=== PATIENT | female | born 1975 | race Caucasian/White ===

== ENCOUNTER 2020-08-21 17:20 | Inpatient (IN) | payer OTHER ==
[2020-08-21] MEDS ORDERED: Adenosine 6 MG/2 ML VIAL ONE ×2 (17:29→17:37)
[2020-08-21] MEDS ORDERED: Magnesium 2 GM/50 ML BAG (IN WATER) ONE (17:31)
[2020-08-21] MEDS ORDERED: Digoxin 0.5 MG/2 ML AMP ONE (17:45)
[2020-08-21 17:46] LABS: #Basophils 0.1 thou/uL (0.0-0.2); #Eosinphils 0.1 thou/uL (0.0-0.7); #Lymphocytes 1.3 thou/uL (1.20-3.40); #Monocytes 0.7 thou/uL (0.11-0.59); #Neutrophils 3.3 thou/uL (1.40-6.50); %Basophils 1.1 % (0.0-1.0); %Eosinophils 1.4 % (0.0-10.0); %Lymphocytes 23.5 % (21.0-51.0); %Monocytes 12.6 % (0.0-10.0); %Neutrophils 61.4 % (42.0-75.0); Hemoglobin 13.4 g/dL (12.0-16.0); Mean Corpuscular HGB CONC 33.6 g/dL (32.0-36.0); Mean Corpuscular Hemoglobin 30.5 pg (27.0-31.0); Mean Corpuscular Volume 90.7 fL (78.0-98.0); Mean Platelet Volume 7.8 fL (7.4-10.4); Platelet Count 279 thou/uL (130-400); RBC Distribution Width 11.2 % (11.5-14.5); Red Blood Cell (RBC) Count 4.39 mill/uL (4.20-5.40); White Blood Cell (WBC) Count 5.4 thou/uL (4.8-10.8)
[2020-08-21] MEDS ORDERED: Diltiazem 125 MG/25 ML ONE (17:50)
--- NOTE | 2020-08-21 17:58 | RAD ---
Chest one view HISTORY: Chest pain. FINDINGS: Cardiac silhouette is magnified by projection. Pulmonary vasculature is unremarkable. Mediastinum is midline with a dual lead left subclavian cardiac electronic device. No lobar consolidation or evidence of pneumothorax. Defibrillator patch overlies the right chest and left abdomen. There are postoperative changes of the cervical spine. IMPRESSION : No active cardiopulmonary abnormalities are demonstrated.
[2020-08-21 18:01] LABS: ALT (SGPT) 7 U/L (8-55); AST (SGOT) 16 U/L (5-34); Albumin 4.1 g/dL (3.5-5.0); Alkaline Phosphatase 68 U/L (40-110); Anion Gap 13 mmol/L (10-20); BUN (Urea Nitrogen) 7 mg/dL (7.0-18.7); Bilirubin, Total 0.3 mg/dL (0.2-1.2); Calc. Creatinine Clearance 0 mL/min (70-130); Calcium 8.7 mg/dL (7.8-10.44); Carbon Dioxide 23 mmol/L (22-29); Chloride 104 mmol/L (98-107); Estimated GFR-MDRD 63; Globulin 2.8 g/dL (2.4-3.5); Glucose 109 mg/dL (70-105); Potassium 3.6 mmol/L (3.5-5.1); Protein, Total 6.9 g/dL (6.0-8.3); Sodium 136 mmol/L (136-145)
[2020-08-21 18:03] LABS: Acetaminophen Less than 6.0 mcg/mL (10.0-30.0); Alcohol Less than 10 mg/dL (Less than 10); Salicylate Less than 8.0 mg/dL (15.0-30.0)
[2020-08-21 18:14] LABS: Bilirubin Negative (Negative); Blood, Urine Negative (Negative); Clarity Clear (Clear); Glucose, Urine (Dipstick) Normal (Negative); Ketone, Urine Negative (Negative); Leukocyte Negative Leu/uL (Negative); Nitrite Negative (Negative); Protein, Urine (Dipstick) Negative (Neg-Trace); Specific Gravity, Urine 1.006 (1.002-1.036); Urobilinogen Normal mg/dL (Less than 2); pH, Urine 5.5 (5.0-9.0)
[2020-08-21 18:28] LABS: Amphetamine Not Detected (NotDetected); Barbiturates Screen Not Detected (NotDetected); Benzodiazepine Screen Not Detected (NotDetected); Cocaine Metabolite Screen Not Detected (NotDetected); Medtox Control Line Valid? VALID (VALID); Medtox Reader # READER 4; Methadone Not Detected (NotDetected); Methamphetamine Not Detected (NotDetected); Opiate Screen Not Detected (NotDetected); Oxycodone Screen Not Detected (NotDetected); Phencyclidine (PCP) Not Detected (NotDetected); THC/Cannabinoid Screen Detected (NotDetected); Tricyclic Screen Not Detected (NotDetected)
[2020-08-21] MEDS ORDERED: Amiodarone HCl 150 MG in Dextrose 5% in Water 100 ML IVPB SCH (18:45)
[2020-08-21] MEDS ORDERED: Amiodarone HCl 450 MG in Dextrose 5% in Water 250 ML IVPB SCH (18:45)
[2020-08-21] MEDS ORDERED: levETIRAcetam in NS 100 ML ONE (20:07)
[2020-08-21 21:01] LABS: Troponin I Less than 0.010 ng/mL (< 0.028)
[2020-08-21] MEDS ORDERED: Electrolyte Replacement Protoc 1 EACH EACH IVPB PRN (21:03)
--- NOTE | 2020-08-21 21:09 | CT ---
CT head noncontrast HISTORY: Altered mental status. FINDINGS: There is no evidence of acute intracranial hemorrhage or infarct. The ventricles appear nor mal in size, shape and position. There is no mass effect or shift of midline structures. Visualized paranasal sinuses remain well aerated. IMPRESSION : No abnormalities are demonstrated.
--- NOTE | 2020-08-21 21:12 | PDOC.HHP ---
Hospitalist HPI - History of Present Illness Altered mental status History of Present Illness: 44-year-old woman with a history of chronic systolic heart failure, status post AICD, sick sinus syndrome, seizure disorder and COPD was brought to the emergency department due to intermittent altered mental status. Patient is reported to have been going in and out of consciousness family were concerned for seizures. Her heart rate was found to be as high as in the 200s. Patient noted to be in SVT on arrival with ventricular rate as high as 210. Patient was given multiple doses of adenosine, diltiazem and digoxin without any effect. Stone Grader-Dr. Chung was contacted who recommended amiodarone. Patient was given a bolus of amiodarone and started on amiodarone drip. She then converted to sinus rhythm with heart rate in the low 100s. She was somnolent because he was given a dose of IV Ativan and could not provide any history. Chest x-ray was unremarkable. Her vitals are stable. Patient is admitted for further management. Hospitalist ROS - Review of Systems ROS unobtainable: due to mental status - Medication Medications: I am not able to collect and validate home medications given her somnolence. Current Medications Famotidine (Famotidine/Pf 20 Mg/2ml Vial) 20 mg SLOW IVP Q12HR DAYSI Sodium Chloride (Normal Saline 0.9%) 1,000 mls @ 50 mls/hr IV .Q20H DAYSI Last Admin: 08/22/20 00:41 Dose: Not Given Documented by: Influenza Virus Vaccine Quadrival (Flu Vacc [id number](6mos Up)/Pf 60 Mcg/0.5 Ml Syringe) 60 mcg IM .ONCE ONE Stop: 08/22/20 21:01 Miscellaneous Medication (Electrolyte Replacement Protoc 1 Each Each) 1 each IVPB PRN PRN PRN Reason: ELECTROLYTES Pneumococcal Polyvalent Vaccine (Pneumococcal 23 "Pneumovax" 0.5 Ml Vial) 0.5 ml IM .ONCE ONE Stop: 08/22/20 21:01 Hospitalist History - Past Medical History Other Medical History: Chronic systolic heart failure, sick sinus syndrome, COPD, osteoporosis, hypercholesterolemia, history of CVA, ALS, lupus. Manic depression. - Past Surgical History Other Surgical History: Cervical spine surgery, appendectomy, cholecystectomy, section. - Family History Other Family History: Unable to obtain due to somnolence. - Social History Alcohol: reports: None Drugs: reports: marijuana - Exam General Appearance: NAD, awake alert General - other findings: Cachectic. Eye: PERRL, anicteric sclera ENT: normocephalic atraumatic, moist mucosa Neck: supple, no JVD Heart: RRR, no murmur, no gallops Heart - other findings: tachycardia Respiratory: CTAB, no wheezes, no rales, no ronchi Gastrointestinal: soft, non-tender, non-distended, normal bowel sounds Extremities: no cyanosis, no edema Skin: normal turgor, no rashes Neurological: cranial nerve grossly intact, no weakness, no focal deficits Musculoskeletal: normal tone, normal strength Psychiatric: somnolent Hospitalist Results - Labs Result Diagrams: 08/21/20 17:32 08/21/20 17:32 Lab results: WBC 5.4 thou/uL (4.8-10.8) 08/21/20 17:32 Hgb 13.4 g/dL (12.0-16.0) 08/21/20 17:32 Hct 39.8 % (36.0-47.0) 08/21/20 17:32 MCV 90.7 fL (78.0-98.0) 08/21/20 17:32 Plt Count 279 thou/uL (130-400) 08/21/20 17:32 Neutrophils % 61.4 % (42.0-75.0) 08/21/20 17:32 Sodium 136 mmol/L (136-145) 08/21/20 17:32 Potassium 3.6 mmol/L (3.5-5.1) 08/21/20 17:32 Chloride 104 mmol/L (98-107) 08/21/20 17:32 Carbon Dioxide 23 mmol/L (22-29) 08/21/20 17:32 BUN 7 mg/dL (7.0-18.7) 08/21/20 17:32 Creatinine 0.96 mg/dL (0.6-1.1) 08/21/20 17:32 Glucose 109 mg/dL (70-105) H 08/21/20 17:32 Lactic Acid 1.3 mmol/L (0.5-2.2) 08/21/20 17:32 Calcium 8.7 mg/dL (7.8-10.44) 08/21/20 17:32 Total Bilirubin 0.3 mg/dL (0.2-1.2) 08/21/20 17:32 AST 16 U/L (5-34) 08/21/20 17:32 ALT 7 U/L (8-55) L 08/21/20 17:32 Alkaline Phosphatase 68 U/L (40-110) 08/21/20 17:32 Troponin I Less than 0.010 ng/mL (< 0.028) 08/21/20 20:30 B-Natriuretic Peptide 14.4 pg/mL (0-100) 08/21/20 17:32 Serum Total Protein 6.9 g/dL (6.0-8.3) 08/21/20 17:32 Albumin 4.1 g/dL (3.5-5.0) 08/21/20 17:32 Urine Ketones Negative mg/dL (Negative) 08/21/20 18:02 Urine Blood Negative (Negative) 08/21/20 18:02 Urine Nitrite Negative (Negative) 08/21/20 18:02 Ur Leukocyte Esterase Negative Chicho/uL (Negative) 08/21/20 18:02 Hospitalist H&P A/P - Problem (1) SVT (supraventricular tachycardia) Code(s): I47.1 - SUPRAVENTRICULAR TACHYCARDIA Status: Acute (2) Chronic systolic heart failure Code(s): I50.22 - CHRONIC SYSTOLIC (CONGESTIVE) HEART FAILURE Status: Acute (3) Sick sinus syndrome Code(s): I49.5 - SICK SINUS SYNDROME Status: Acute (4) Automatic implantable cardioverter-defibrillator in situ Code(s): Z95.810 - PRESENCE OF AUTOMATIC (IMPLANTABLE) CARDIAC DEFIBRILLATOR Status: Acute (5) Seizure disorder Code(s): G40.909 - EPILEPSY, UNSP, NOT INTRACTABLE, WITHOUT STATUS EPILEPTICUS Status: Acute - Plan Plan: Admit to telemetry Continue amiodarone drip per Dr. Chung Obtain echocardiogram Monitor and optimize electrolytes. Slow IV hydration with caution to avoid volume overload. Consult to staffing mgr. Continue seizure medications.
[2020-08-21 23:59] LABS: Troponin I Less than 0.010 ng/mL (< 0.028)
[2020-08-22] MEDS: Sodium Chloride 0.9% 1,000 ML IV SCH ×2 (00:41→20:30)
[2020-08-22] MEDS ORDERED: Amiodarone 450 MG, Admixture Fee 1 EACH in Dextrose 5% in Water 250 ML IVPB SCH (03:45)
[2020-08-22 04:11] LABS: Phosphorus 2.9 mg/dL (2.3-4.7)
[2020-08-22 04:55] LABS: ALT (SGPT) Less than 7 U/L (8-55); AST (SGOT) 10 U/L (5-34); Albumin 3.2 g/dL (3.5-5.0); Alkaline Phosphatase 53 U/L (40-110); Anion Gap 10 mmol/L (10-20); BUN (Urea Nitrogen) 6 mg/dL (7.0-18.7); Band 1 % (5-11); Bilirubin, Total 0.6 mg/dL (0.2-1.2); Calc. Creatinine Clearance 63 mL/min (70-130); Calcium 7.7 mg/dL (7.8-10.44); Carbon Dioxide 20 mmol/L (22-29); Chloride 112 mmol/L (98-107); Eosinophils 5 % (0-10); Estimated GFR-MDRD 79; Glucose 85 mg/dL (70-105); Hemoglobin 10.6 g/dL (12.0-16.0); Lymphocytes 18 % (21-51); MDiff Complete? YES; Magnesium 2.1 mg/dL (1.6-2.6); Mean Corpuscular HGB CONC 33.6 g/dL (32.0-36.0); Mean Corpuscular Hemoglobin 30.8 pg (27.0-31.0); Mean Corpuscular Volume 91.7 fL (78.0-98.0); Mean Platelet Volume 8.2 fL (7.4-10.4); Monocytes 10 % (0-10); Neutrophil 66 % (42-75); Platelet Count 222 thou/uL (130-400); Potassium 3.6 mmol/L (3.5-5.1); Protein, Total 5.2 g/dL (6.0-8.3); RBC Distribution Width 11.1 % (11.5-14.5); Red Blood Cell (RBC) Count 3.45 mill/uL (4.20-5.40); Sodium 138 mmol/L (136-145); White Blood Cell (WBC) Count 5.9 thou/uL (4.8-10.8)
[2020-08-22] MEDS ORDERED: Famotidine/PF 20 mg/2ml Vial SLOW IVP SCH (09:00)
--- NOTE | 2020-08-22 10:31 | CON ---
DATE OF CONSULTATION: 08/22/2020 INDICATION FOR CONSULTATION: A 44-year-old female with reported history of SVT with heart rates in the 200s. HISTORY OF PRESENT ILLNESS: This is a very unfortunate 44-year-old female, who has a history of lupus, also has a history of seizure disorder and also has ALS, has been having some episodes which she describes as being syncope at home, where just becoming nonresponsive. She underwent pacemaker insertion in the past. She has a Medtronic dual-chamber pacemaker. Apparently, yesterday at home, she became unresponsive. 911 was called. She was brought to the emergency room. According to the records, she was in SVT with a heart rate in the 200 range. There were no tracings in the chart to indicate her heart rate was tachycardia at that time. First EKG yesterday at 7 o'clock shows a sinus rhythm or sinus tachycardia with a heart rate of [address]-segment changes. She has had no further episodes since being admitted to the hospital. She was placed on IV amiodarone yesterday, remains on the drip. At this time, she denies any chest pain. She is alert and oriented. PAST MEDICAL HISTORY: Significant for pacemaker insertion due to sick sinus syndrome, history of seizure disorder, ALS, lupus. She has chronic pain syndrome. She also has posttraumatic stress disorder. She has a history of possible CVA in the past, osteoporosis, hypercholesterolemia, history of COPD. She smoked in the past, says she has not recently smoked. She has had neck surgery. She has had several episodes of fusion. SOCIAL HISTORY: She lives at home. She has some tobacco abuse. She smokes marijuana. She was positive on the drug screen for cannabis. MEDICATIONS PRIOR TO ADMISSION: Include: 1. Atorvastatin 40 mg a day. 2. Famotidine she takes 40 mg tablets twice a day. 3. Levetiracetam 500 mg, she takes 1000 mg 2 times a day. 4. Prednisone 20 mg once a day. 5. Sertraline 200 mg once a day. 6. Topiramate 200 mg twice a day. 7. Meloxicam 15 mg p.r.n. as needed. 8. Cyclobenzaprine 5 mg as needed. 9. Hydroxyzine 25 mg twice a day. 10. Verapamil 180 mg once a day. REVIEW OF SYSTEMS: A 12-point review of systems is unremarkable except what was noted in the history of present illness. She does have seizures. She has had some episodes of tachycardia with a rapid heart rate. She has chronic pain syndrome. Otherwise, she denied any GI complaints, complaints, or pulmonary complaints. No musculoskeletal complaints that were noted. PHYSICAL EXAMINATION: GENERAL: Reveals a very thin statured female. She is alert. She is oriented. VITAL SIGNS: At this time, blood pressure is 110/60, O2 saturation 100%, she is afebrile, heart rates in the 80s and shows sinus rhythm, and respiratory rate 17. HEENT: Unremarkable. CHEST: Clear to auscultation without rales, rhonchi, or wheezing. She has a well-healed surgical incision over the pacemaker site underneath the left infraclavicular area. CARDIOVASCULAR: Did not reveal any significant murmurs, heaves, thrills, bruits, or rubs. ABDOMEN: Soft and nontender. Positive bowel sounds are present. EXTREMITIES: Show no clubbing, cyanosis, or edema. Pedal pulses are present. NEUROLOGIC: She appears to be intact. She does have extremely poor dentition, most of her teeth are missing, and the rest have severe caries. SKIN: Warm and dry. DIAGNOSTIC STUDIES: EKG at this time shows a normal sinus rhythm. LABORATORY DATA: Showed sodium is 138, potassium is 3.6, BUN is 6 with a creatinine of 0.79. Cardiac enzymes are negative. TSH is 1.29. WBC of 5.9, hemoglobin 10.6. Apparently, on admission, her hemoglobin was 13.4. She may have been slightly dehydrated. Platelet count was 222,000. IMPRESSION: 1. Probable supraventricular tachycardia, which was converted back to a sinus rhythm. In the emergency room, she was given adenosine and was started on IV amiodarone. She also was given digoxin as well as some magnesium. We will interrogate the pacemaker to determine whether or not this is truly supraventricular tachycardia or flutter and then the clean in places operator has already been consulted. 2. History of sick sinus syndrome. She has undergone pacemaker insertion in the past. This was done in [place]. 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 She recently moved to this area. 3. History of lupus. This will be dealt with by the primary care service as well as ALS, will also be dealt with by the primary care service. We will be more than happy to continue to follow the patient with you, but will need to be fully evaluated from a cardiology standpoint via Electrophysiology. We will obtain the records from [place], can also obtain an echocardiogram for evaluation of left ventricular systolic function. She denies any previous history of coronary artery disease or stent placement. Job ID: [id number] MTDD
[2020-08-22 12:15] LABS: SARS-CoV-2 MS2 Positive; SARS-CoV-2 N Gene Negative; SARS-CoV-2 S Gene Negative; SARS-CoV-2 by NAA Not Detected (NotDetected); SARS-CoV-2 orf1ab Negative
--- NOTE | 2020-08-22 17:35 | PDOC.HOSPP ---
- Subjective Subjective: denies of chest pain, still lethargic but want to go home. - Objective Vital Signs & Weight: Vital Signs (12 hours) Temp Pulse Ox 08/22/20 15:13 98.7 F 08/22/20 11:03 98.5 F 08/22/20 07:27 100 08/22/20 07:08 97.8 F Weight Admit Weight 96 lb 8.999 oz Weight 96 lb Most Recent Monitor Data Heart Rate from ECG 68 NIBP 103/63 NIBP BP-Mean 76 Respiration from ECG 20 SpO2 100 I&O: 08/21/20 08/22/20 08/23/20 06:59 06:59 06:59 Intake Total 1627 Output Total 1125 1400 Balance 502 -1400 Result Diagrams: 08/22/20 03:15 08/22/20 03:15 Radiology Reviewed by me: Yes EKG Reviewed by me: Yes Hospitalist ROS - Medication Medications: Active Medications Generic Name Dose Route Start Last Admin Trade Name Freq PRN Reason Stop Dose Admin Sodium Chloride 1,000 mls @ 50 mls/hr 08/21/20 21:15 08/22/20 00:41 Normal Saline 0.9% IV Not Given .Q20H DAYSI Amiodarone HCl 450 mg/ 259 mls @ 0 mls/hr 08/22/20 03:45 08/22/20 03:57 Miscellaneous Medication 1 IVPB 259 mls each/ Dextrose/Water INF DAYSI Administration Protocol As Directed Sodium Chloride 10 ml 08/22/20 09:00 08/22/20 07:51 Flush - Normal Saline 10 Ml Syringe IVF 10 ml Q12HR DAYSI Administration - Exam General Appearance: NAD Eye: PERRL ENT: normocephalic atraumatic Neck: supple Heart: RRR Respiratory: CTAB Gastrointestinal: soft, non-tender Extremities: no cyanosis Skin: normal turgor Hosp A/P (1) SVT (supraventricular tachycardia) Code(s): I47.1 - SUPRAVENTRICULAR TACHYCARDIA Status: Acute (2) Lupus Code(s): M32.9 - SYSTEMIC LUPUS ERYTHEMATOSUS, UNSPECIFIED Status: Acute (3) ALS (amyotrophic lateral sclerosis) Code(s): G12.21 - AMYOTROPHIC LATERAL SCLEROSIS Status: Acute (4) Automatic implantable cardioverter-defibrillator in situ Code(s): Z95.810 - PRESENCE OF AUTOMATIC (IMPLANTABLE) CARDIAC DEFIBRILLATOR Status: Acute (5) Chronic systolic heart failure Code(s): I50.22 - CHRONIC SYSTOLIC (CONGESTIVE) HEART FAILURE Status: Acute (6) Seizure disorder Code(s): G40.909 - EPILEPSY, UNSP, NOT INTRACTABLE, WITHOUT STATUS EPILEPTICUS Status: Acute (7) Sick sinus syndrome Code(s): I49.5 - SICK SINUS SYNDROME Status: Acute (8) Syncope Code(s): R55 - SYNCOPE AND COLLAPSE Status: Acute - Plan Resume home medications. Appreciate input from cardiology, pending further recommendation from EP. cont supportive cares. rpt labs in AM, follow Echo
[2020-08-22] MEDS: levETIRAcetam 500 MG TAB PO SCH (20:30)
[2020-08-22] MEDS: Topiramate 100 MG TAB PO SCH (20:31)
[2020-08-22] MEDS: Famotidine 20 MG TAB PO SCH (20:31)
[2020-08-22] MEDS ORDERED: FLU VACC QS2020-21(6MOS UP)/PF 60 MCG/0.5 ML SYRINGE IM ONE (21:00)
[2020-08-23 03:56] LABS: ALT (SGPT) Less than 7 U/L (8-55); AST (SGOT) 13 U/L (5-34); Alkaline Phosphatase 56 U/L (40-110); Anion Gap 10 mmol/L (10-20); BUN (Urea Nitrogen) 6 mg/dL (7.0-18.7); Band 2 % (5-11); Bilirubin, Total 0.6 mg/dL (0.2-1.2); Calc. Creatinine Clearance 66 mL/min (70-130); Calcium 7.8 mg/dL (7.8-10.44); Carbon Dioxide 19 mmol/L (22-29); Chloride 113 mmol/L (98-107); Eosinophils 2 % (0-10); Estimated GFR-MDRD 84; Globulin 2.2 g/dL (2.4-3.5); Glucose 80 mg/dL (70-105); Hemoglobin 10.2 g/dL (12.0-16.0); Lymphocytes 21 % (21-51); MDiff Complete? YES; Magnesium 1.9 mg/dL (1.6-2.6); Mean Corpuscular Hemoglobin 30.8 pg (27.0-31.0); Mean Corpuscular Volume 90.6 fL (78.0-98.0); Mean Platelet Volume 7.9 fL (7.4-10.4); Monocytes 4 % (0-10); Neutrophil 67 % (42-75); Platelet Count 224 thou/uL (130-400); Platelet Morphology Comment Appears Adequate; Potassium 3.7 mmol/L (3.5-5.1); Protein, Total 5.2 g/dL (6.0-8.3); RBC Distribution Width 10.9 % (11.5-14.5); Reactive Lymphocytes 4 % (0-10); Red Blood Cell (RBC) Count 3.31 mill/uL (4.20-5.40); Sodium 138 mmol/L (136-145); White Blood Cell (WBC) Count 3.9 thou/uL (4.8-10.8)
[2020-08-23] MEDS ORDERED: Magnesium 2 GM/50 ML 2 GM in Premix Bag 1 BAG IVPB SCH (06:15)
[2020-08-23 07:15] VITALS: TEMP 98.2
--- NOTE | 2020-08-23 07:46 | CON ---
DATE OF CONSULTATION: 08/22/2020 HISTORY OF PRESENT ILLNESS: I am seeing Ms. Pro at our [facility] step-down ICU for Electrophysiology consultation. Her problems are; 1. Episodes of supraventricular tachycardia in excess of 200 beats per minute, requiring DCCV and bolus with with amiodarone in ER. 2. History of sick sinus syndrome, status post Medtronic Adapta dual-chamber pacemaker implant on 02/18/2009. 3. Preserved LVEF by prior ECHO 55-60% in 11/07/19. No sign valve disease, Normal atriae. 4. History of seizure disorder with recent recurrences. 5. Possible history of atrial arrhtyhmias. 6. History of ALS. 7. Marijuana use. ALLERGIES: QUETIAPINE. MEDICATIONS: At home included; 1. Verapamil ER. 2. Prednisone. 3. Sertraline. 4. Levetiracetam. 5. Famotidine. 6. Lipitor. 7. Hydroxyzine. 8. Topiramate. 9. Meloxicam. 10. Cyclobenzaprine. SUBJECTIVE: Ms. Pro is a poor historian. She has some degree of confusion. She cannot recall the exact event which brought her in, but she states she has been feeling bad and then she went down according to her. Family was concerned for seizures and then altered mental status. EMS found her with SVT per report with high heart rates up to 210 beats per minute. In ER Adenosine, diltiazem, and digoxin did not work, eventually received DCCV and IV amiodarone,which eventually converted her back to sinus rhythm. Since then, on the drip, she maintains normal rhythm. Unfortunately, strips are not available. She does have a history of a pacemaker implant from 2008 with sick sinus syndrome. She may have episodes of palpitations frequently, possibly multiple times a week. REVIEW OF SYSTEMS: Rest of 12-point review of system otherwise unremarkable. PAST HISTORY: As above. SOCIAL HISTORY: The patient denies smoking, EtOH, or drug abuse. FAMILY HISTORY: Not contributory. OBJECTIVE DATA: VITAL SIGNS: Blood pressure currently 110/76, heart rate 87, respiratory rate is 17, temperature 97.8 degrees Fahrenheit. GENERAL: Reveals alert and oriented woman, somewhat cachectic, with BMI of 16. NECK: Supple. Jugular veins not distended. CHEST: Coarse without crackles. HEART: Sounds are regular to rate and rhythm. Left precordial pacemaker site is noted. No murmur or gallop is appreciated. ABDOMEN: Benign. Bowel sounds are positive. EXTREMITIES: Lower extremities without edema, clubbing, or cyanosis. DATABASE: The EKG is reviewed, revealing initially an atrial tachycardia run with atrial cycle length about 320 milliseconds with variable AV conduction. Subsequent EKG from 08/21/2020, showed sinus rhythm, rate of 109 beats per minute. LABORATORY DATA: White cell count is 5.9, hemoglobin 10.6, platelet count is 222. Sodium 138, potassium 3.6, BUN is 6, creatinine 0.79. The tox screen is positive for cannabis. Chest x-ray shows a dual-chamber pacemaker in place, normal heart size. Pacemaker interrogation, preliminary report suggests adequate functioning dual-chamber pacemaker with frequent high heart rate episodes, Both High ventricular and atrial rate episode are documented to max duration of 3 minutes, but frequently recurring on 08/21/20 PM. Intracrdiac electrograms are not available by this older device. Her albumin is 3.2, globulin is 2.0. Troponin levels are less than 0.01. TSH is 1.2975. ASSESSMENT AND PLAN: Ms. Pro is a 44-year-old woman with a complex medical history, possible ALS and seizure disorder, who is presenting with a narrow complex tachycardia. The only strip available to me is suggesting atrial tachycardia with variable AV conduction. Pacemaker interrogation already requested, although it seems due to the older device with limited monitoring function, intracardiac electrograms are not very helpful. She seems to have responded well to amiodarone therapy. My plan at this point; 1. We will need to obtain more data in regard to this lady's history and current condition. 2D echocardiogram will be requested, hence the remote history of CHF, although x-ray seems to indicate normal cardiac size. 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 2. Due to multiple comorbidities, at this point, I would like to recommend medical suppression of her atrial arrhythmias, hence her left atrial and at this point, she is not anticoagulated for left atrial procedures. We will continue to follow with you. Thank you again for letting me participate in care of this patient. Job ID: [id number] MTDD
[2020-08-23] MEDS ORDERED: predniSONE 20 MG TAB PO SCH (08:00)
[2020-08-23] MEDS: Famotidine 20 MG TAB PO SCH (08:46)
[2020-08-23] MEDS: levETIRAcetam 500 MG TAB PO SCH (08:46)
[2020-08-23] MEDS: Topiramate 100 MG TAB PO SCH (08:46)
--- NOTE | 2020-08-23 11:20 | PDOC.EP ---
- Subjective Date: 08/23/20 Time: 11:09 Interval History: Remains stable overnight with no recurrent arrhythmia or seizures. - Review of Systems Constitutional: denies: chills, fever, malaise, sweats, weakness, other Respiratory: denies: cough, dry, hemoptysis, pleuritic pain, shortness of breath, SOB with excertion, sputum, wheezing, other Cardiology: denies: chest pain, edema, heart racing, light headedness, paroxysmal noc. dyspnea, orthopnea, palpitations, passing out, pleuritic pain, pressure, swelling, other Gastrointestinal: denies: abdominal pain, constipation, diarrhea, hematochezia, melena, nausea, vomitting, other Musculoskeletal: denies: unstable gait, falls, neck pain, shoulder pain, arm pain, hand pain, leg pain, foot pain, other Neurological: denies: headache, vision changes, other - Objective Allergies/Adverse Reactions: Allergies Allergy/AdvReac Type Severity Reaction Status Date / Time quetiapine [From Seroquel] Allergy Verified 08/22/20 02:37 Current Medications Atorvastatin Calcium (Atorvastatin Calcium 40 Mg Tab) 40 mg PO [facility] Famotidine (Famotidine 20 Mg Tab) 20 mg PO BID [facility] Last Admin: 08/23/20 08:46 Dose: 20 mg Documented by: Sodium Chloride (Normal Saline 0.9%) 1,000 mls @ 50 mls/hr IV .Q20H [facility] Last Admin: 08/22/20 20:30 Dose: 1,000 mls Documented by: Amiodarone HCl 450 mg/Miscellaneous Medication 1 each/ Dextrose/Water 259 mls @ 0 mls/hr IVPB INF DAYSI; Protocol Last Admin: 08/22/20 03:57 Dose: 259 mls Documented by: Levetiracetam (Levetiracetam 500 Mg Tab) 1,000 mg PO BID [facility] Last Admin: 08/23/20 08:46 Dose: 1,000 mg Documented by: Miscellaneous Medication (Electrolyte Replacement Protoc 1 Each Each) 1 each IVPB PRN PRN PRN Reason: ELECTROLYTES Prednisone (Prednisone 20 Mg Tab) 20 mg PO QA[facility] Last Admin: 08/23/20 08:46 Dose: 20 mg Documented by: Sertraline HCl (Sertraline Hcl 100 Mg Tab) 200 mg PO DAILY [facility] Last Admin: 08/23/20 08:46 Dose: 200 mg Documented by: Sodium Chloride (Flush - Normal Saline 10 Ml Syringe) 10 ml IVF Q12HR [facility] Last Admin: 08/23/20 08:47 Dose: 10 ml Documented by: Sodium Chloride (Flush - Normal Saline 10 Ml Syringe) 10 ml IVF PRN PRN PRN Reason: Saline Flush Topiramate (Topiramate 100 Mg Tab) 200 mg PO BID [facility] Last Admin: 08/23/20 08:46 Dose: 200 mg Documented by: Vital Signs & Weight: Vital Signs Temp 08/23/20 07:15 98.2 F 08/23/20 04:00 97.7 F 08/23/20 00:00 97.4 F L Admit Weight 96 lb 8.999 oz Weight 93 lb 14.671 oz I/O: I/O 08/22/20 08/23/20 08/24/20 06:59 06:59 06:59 Intake Total 1627 1700 Output Total 1125 4250 550 Balance 502 -2550 -550 - Physical Exam General: alert & oriented x3, appears well HEENT: normocephaly Neck: no JVD/HJR Cardiology: no murmur, regular rate Lungs: clear to auscultation, normal breath sounds, no wheezes, no rales Neurology: grossly intact Abdomen: unremarkable, soft, non-tender Extremities: warm Skin: device site stable w/o swelling Musculoskeletal: no pain - Labs Result Diagrams: 08/23/20 03:12 08/23/20 03:12 - EKG Interpretation EKG Method: Telemetry (SR) - Device Device: dual, pacemaker Device Result: Medtronic - Assessment/Plan Assessment/Plan: HISTORY OF PRESENT ILLNESS: I am seeing Ms. Pro at our [facility] step-down ICU for Electrophysiology consultation. Her problems are; 1. Episodes of supraventricular tachycardia in excess of 200 beats per minute, requiring DCCV and bolus with with amiodarone in ER. 2. History of sick sinus syndrome, status post Medtronic Adapta dual-chamber pacemaker implant on 02/18/2009. 3. Preserved LVEF by prior ECHO 55-60% in 11/07/19. No sign valve disease, No rmal atriae. 4. History of seizure disorder with recent recurrences. 5. Possible history of atrial arrhtyhmias. 6. History of ALS. 7. h/o Marijuana use. ASSESSMENT AND PLAN: Ms. Pro is a 44-year-old woman with a complex medical history, possible ALS and seizure disorder, who is presenting with a narrow complex tachycardia. The only strip available to me is suggesting atrial tachycardia with variable AV conduction. Pacemaker interrogation already requested, although it seems due to the older device with limited monitoring function, intracardiac electrograms are not very helpful. She seems to have responded well to amiodarone therapy. 08/23/20. PPm interrogation and Dr Bullock's ([facility]) notes reviewd from 06/2019. Pt had preserved LVEF then and now. History of diastolic heart failure noted. 1. Due to multiple comorbidities, at this point, I would like to recommend medical suppression of her atrial arrhythmias. for now would avoid termite treater helper amidarone therapy. Adding BB is reasonable, if tolerated by her pulmonary status. If recurrent atach/afib epsides are seen consider sotalol or flecainde. She could also be considered for left atrial ablative procedures if above fails as outpt. Hence her atrial tachycardia episodes are short, i would recommend ASA 81mg QD for thromboprophylaxis. Plan to reprogram device before DC for better monitoring options of her arrhythmiae. Happy ot see her back in clinic in 4-6 weeks. Thank you again for letting me participate in care of this patient.
[2020-08-23 12:00] VITALS: BMI 15.6
[2020-08-23] MEDS: Sodium Chloride 0.9% 1,000 ML IV SCH (15:00)
--- NOTE | 2020-08-23 17:24 | PDOC.DS.DS ---
Provider - Provider Date of Admission: 08/21/20 20:18 Date of Discharge: 08/23/20 Admitting Provider: Kendell Dennison MD Consultations: Cardiology Primary Care Physician: NO PCP PROVIDER Course - Hospital Course Hospital Course: HISTORY OF PRESENT ILLNESS AND BRIEF HOSPITAL COURSE: 44 years old female with multiple comorbidities including chronic systolic heart failure with status post AICD, sick sinus syndrome, seizure disorder, COPD, who presented to ED with complaint of altered mental status. Apparently, this was reported that she was in and out of her consciousness, family was concerned that she may have seizure. Upon arrival, her heart rate was in the 200 range. She was found in SVT. She was given multiple dose of adenosine, diltiazem, digoxin without any significant improvement. Cardiology was consulted, Dr. Chung recommends start patient on amiodarone bolus, and then maintenance dose. Rate appears to be responded well. Patient was ultimately admitted to hospitalist service for further management. Cardiology, and EP were consulted. Patient was seen by Dr. Davis, and Dr. Calixto from cardiology. Mental status back to baseline. Patient was started on low-dose beta-ginny, Lopressor 12.5 mg twice daily. Her rate has been controlled. Patient threatened to leave AMA multiple times, however, we able to addictions counselor to stay until she is discharged appropriate. At this point, patient is okay to discharge from cardiology. Patient will follow up with Dr. Davis at outpatient. PERTINENT IMAGING STUDIES: CT head: No abnormality Chest x-ray shows no acute cardiopulmonary process Echo: EF 60-65%, normal right ventricular size and function. PROCEDURE PERFORMED: NONE DISCHARGE CONDITION: STABLE DISPOSITION: HOME PHYSICAL EXAM: General Appearance: Alert, oriented, resting comfortably, no apparent distress, well developed/nourished. HEENT: Normocephalic/atraumatic, moist mucous membrane, normal ENT inspection, normal tones. PERRLA, no scleral icterus, normal conjunctiva Neck: Supple, normal inspection, no JVD Respiratory: Lungs are clear bilaterally, normal breath sounds, no accessory muscle use Cardiovascular: Regular rate, regular rhythm, no murmur, no rubs Abdomen: Soft, nontender, nondistended, normal bowel sounds, no organomegaly, no guarding no rebound Back: Normal inspection, no CVA tenderness Extremities: No clubbing, no cyanosis, no edema Psych/Mental Status: Normal affect, speech, non-pressured, AAO x 3 Neurologic: CN II-XII are intact. Skin: Warm/Dry, Normal Color, no rashes DISCHARGE TIME SPENT: >30 MINUTES - Labs Lab Results: 08/23/20 03:12 08/23/20 03:12 Abnormal Lab Results - Last 48 hrs 08/21/20 17:32: ALT 7 L 08/21/20 17:32: Salicylates Less than 8.0 L, Acetaminophen Less than 6.0 L 08/21/20 17:32: RDW 11.2 L, Monocytes % 12.6 H, Basophils % 1.1 H, Monocytes # 0.7 H 08/21/20 18:02: U Cannabinoids Screen Detected H 08/22/20 03:15: Chloride 112 H, Carbon Dioxide 20 L, BUN 6 L, Calcium 7.7 L, ALT Less than 7 L, Serum Total Protein 5.2 L, Albumin 3.2 L, Globulin 2.0 L 08/22/20 03:15: RBC 3.45 L, Hgb 10.6 L, Hct 31.6 L, RDW 11.1 L, Band Neuts % (Manual) 1 L, Lymphocytes % (Manual) 18 L 08/23/20 03:12: WBC 3.9 L, RBC 3.31 L, Hgb 10.2 L, Hct 30.0 L, RDW 10.9 L, Band Neuts % (Manual) 2 L 08/23/20 03:12: Chloride 113 H, Carbon Dioxide 19 L, BUN 6 L, ALT Less than 7 L, Serum Total Protein 5.2 L, Albumin 3.0 L, Globulin 2.2 L - Physical Exam Vitals: Vital Signs (12 hours) Temp 08/23/20 11:44 98.2 F 08/23/20 07:15 98.2 F Weight Admit Weight 96 lb 8.999 oz Weight 93 lb 14.671 oz Most Recent Monitor Data Heart Rate from ECG 91 NIBP 121/65 NIBP BP-Mean 83 Respiration from ECG 23 SpO2 100 Physical Exam: The patient was seen and examined on the day of discharge. Problem - Problem (1) SVT (supraventricular tachycardia) Code(s): I47.1 - SUPRAVENTRICULAR TACHYCARDIA Status: Acute (2) Lupus Code(s): M32.9 - SYSTEMIC LUPUS ERYTHEMATOSUS, UNSPECIFIED Status: Acute (3) ALS (amyotrophic lateral sclerosis) Code(s): G12.21 - AMYOTROPHIC LATERAL SCLEROSIS Status: Acute (4) Automatic implantable cardioverter-defibrillator in situ Code(s): Z95.810 - PRESENCE OF AUTOMATIC (IMPLANTABLE) CARDIAC DEFIBRILLATOR Status: Acute (5) Chronic systolic heart failure Code(s): I50.22 - CHRONIC SYSTOLIC (CONGESTIVE) HEART FAILURE Status: Acute (6) Seizure disorder Code(s): G40.909 - EPILEPSY, UNSP, NOT INTRACTABLE, WITHOUT STATUS EPILEPTICUS Status: Acute (7) Sick sinus syndrome Code(s): I49.5 - SICK SINUS SYNDROME Status: Acute (8) Syncope Code(s): R55 - SYNCOPE AND COLLAPSE Status: Acute Plan - Discharge Medications Prescriptions: Metoprolol Tartrate [Lopressor] 12.5 mg PO Q12HR #60 tab Home Medications: Medication Instructions Recorded Confirmed Type Atorvastatin Calcium [Lipitor] 40 mg PO DAILY 08/22/20 08/22/20 History Cyclobenzaprine HCl 5 mg PO PRN PRN 08/22/20 08/22/20 History Famotidine 20 mg PO BID 08/22/20 08/22/20 History Meloxicam 15 mg PO PRN PRN 08/22/20 08/22/20 History Sertraline HCl 200 mg PO DAILY 08/22/20 08/22/20 History Topiramate [Topamax] 200 mg PO BID 08/22/20 08/22/20 History hydrOXYzine HCl [Hydroxyzine HCl] 25 mg PO BID 08/22/20 08/22/20 History levETIRAcetam 1,000 mg PO BID 08/22/20 08/22/20 History predniSONE 20 mg PO QAM-WM 08/22/20 08/22/20 History Metoprolol Tartrate [Lopressor] 12.5 mg PO Q12HR #60 tab 08/23/20 Rx Allergies: quetiapine [From Seroquel] Allergy (Verified 08/22/20 02:37) - Discharge Instructions Discharge Instructions:: Follow up with EP cardiology in 1-2 weeks Activity:: Activity as Tolerated Nourishment:: Heart Healthy Diet - Follow up Plan Referrals: PROVIDER,NO PCP [Primary Care Provider] - Shilo Davis MD [Documentation Spec] - 14 Days Disposition: HOME Quality - Care Measures CORE MEASURES:: N/A
[2020-08-23] MEDS ORDERED: Atorvastatin Calcium 40 MG TAB PO SCH (21:00)
[2020-08-23] MEDS ORDERED: Metoprolol Tartrate 25 MG TAB PO SCH (21:00)
== END 2020-08-23 19:30 | disposition home or self-care (01) | DRG 309 ==
LOC: ERS 17:20 → ERHOLD 20:18 → IMCU/EMU 08-22 00:10
PROVIDERS: ADMIT Internal Medicine; ATTEND Family Medicine
PROC: 5A2204Z Restoration of Cardiac Rhythm, Single (ICD-10-PCS; principal; 2020-08-21)
PROC: 4B02XSZ Measurement of Cardiac Pacemaker, External Approach (ICD-10-PCS; 2020-08-22)
DX: I47.1 Supraventricular tachycardia (principal); G12.21 Amyotrophic lateral sclerosis; I50.22 Chronic systolic (congestive) heart failure; M32.9 Systemic lupus erythematosus, unspecified; G40.909 Epilepsy, unspecified, not intractable, without status epilepticus; I49.5 Sick sinus syndrome; Z20.828 Contact with and (suspected) exposure to other viral communicable diseases; J44.9 Chronic obstructive pulmonary disease, unspecified; F32.9 Major depressive disorder, single episode, unspecified; F43.10 Post-traumatic stress disorder, unspecified; F12.10 Cannabis abuse, uncomplicated; E78.00 Pure hypercholesterolemia, unspecified; M81.0 Age-related osteoporosis without current pathological fracture; G89.4 Chronic pain syndrome; I08.3 Combined rheumatic disorders of mitral, aortic and tricuspid valves; F17.200 Nicotine dependence, unspecified, uncomplicated; Z79.899 Other long term (current) drug therapy; Z28.21 Immunization not carried out because of patient refusal; Z90.49 Acquired absence of other specified parts of digestive tract; Z86.73 Personal history of transient ischemic attack (TIA), and cerebral infarction without residual deficits; Z88.8 Allergy status to other drugs, medicaments and biological substances; Z79.52 Long term (current) use of systemic steroids; Z95.0 Presence of cardiac pacemaker
CPT/HCPCS: 36415; 70450; 71045; 80053; 80306; 80307; 81003; 83605; 83735; 83880; 84100; 84443; 84484; 85007; 85025; 85027; 87635; 93005; 93306; 94760; J0153; J0282; J1160; J1953; J3475; J7070; J7512; S0028; U0003

== ENCOUNTER 2020-10-16 17:39 | Inpatient (IN) | payer OTHER ==
[2020-10-16] MEDS ORDERED: Magnesium 2 GM/50 ML BAG (IN WATER) ONE (17:54)
[2020-10-16 18:23] LABS: #Basophils 0.1 thou/uL (0.0-0.2); #Eosinphils 0.1 thou/uL (0.0-0.7); #Lymphocytes 1.2 thou/uL (1.20-3.40); #Monocytes 0.4 thou/uL (0.11-0.59); #Neutrophils 4.1 thou/uL (1.40-6.50); %Basophils 0.9 % (0.0-1.0); %Eosinophils 1.8 % (0.0-10.0); %Lymphocytes 19.8 % (21.0-51.0); %Monocytes 7.5 % (0.0-10.0); Hemoglobin 12.3 g/dL (12.0-16.0); Mean Corpuscular Hemoglobin 30.4 pg (27.0-31.0); Mean Corpuscular Volume 89.2 fL (78.0-98.0); Mean Platelet Volume 7.8 fL (7.4-10.4); Platelet Count 224 thou/uL (130-400); Red Blood Cell (RBC) Count 4.04 mill/uL (4.20-5.40); White Blood Cell (WBC) Count 5.8 thou/uL (4.8-10.8)
[2020-10-16 18:42] LABS: Acetaminophen Less than 6.0 mcg/mL (10.0-30.0); Alcohol Less than 10 mg/dL (Less than 10); Salicylate Less than 8.0 mg/dL (15.0-30.0)
--- NOTE | 2020-10-16 18:42 | RAD ---
PORTABLE CHEST 10/16/20 PROVIDED CLINICAL HISTORY: Tachycardia. FINDINGS: Comparison is made with the study dated 08/21/20. Cardiac and mediastinal silhouette is within normal limits. Left subclavian cardiac pacing device is redemonstrated. No focal consolidation, pleural fluid or pneumothorax apparent. IMPRESSION: No evidence for an acute cardiopulmonary process. POS: TESSA
[2020-10-16 18:43] LABS: Magnesium 1.9 mg/dL (1.6-2.6)
[2020-10-16 18:48] LABS: Bilirubin Negative (Negative); Blood, Urine Negative (Negative); Clarity Turbid (Clear); Glucose, Urine (Dipstick) Normal (Negative); Ketone, Urine Negative (Negative); Leukocyte Negative Leu/uL (Negative); Nitrite Negative (Negative); Protein, Urine (Dipstick) Negative (Neg-Trace); Specific Gravity, Urine 1.004 (1.002-1.036); Urobilinogen Normal mg/dL (Less than 2); pH, Urine 7.5 (5.0-9.0)
[2020-10-16 19:00] LABS: Medtox Reader # READER 4
--- NOTE | 2020-10-16 19:00 | CT ---
Exam: Head CT without contrast HISTORY: Altered mental status. History of ALS. COMPARISON: 08/21/2020 FINDINGS: Hemorrhage: No intraparenchymal hemorrhage or extra-axial hematoma. Brain parenchyma: Cortical lo-white matter differentiation is preserved. No mass effect or midline shift. Basilar cisterns are patent. Ventricular system: Ventricles and sulci are patent and symmetric. Calvarium: Intact. Sinuses and mastoid air cells: Adequate aeration. IMPRESSION: No acute intracranial process.
[2020-10-16 19:01] LABS: Amphetamine Not Detected (NotDetected); Barbiturates Screen Not Detected (NotDetected); Benzodiazepine Screen Not Detected (NotDetected); Cocaine Metabolite Screen Not Detected (NotDetected); Medtox Control Line Valid? VALID (VALID); Methadone Not Detected (NotDetected); Methamphetamine Not Detected (NotDetected); Opiate Screen Not Detected (NotDetected); Oxycodone Screen Not Detected (NotDetected); Phencyclidine (PCP) Not Detected (NotDetected); THC/Cannabinoid Screen Detected (NotDetected); Tricyclic Screen Not Detected (NotDetected)
[2020-10-16] MEDS ORDERED: Lorazepam 2 MG/ML VIAL ONE (19:16)
[2020-10-16] MEDS ORDERED: levETIRAcetam in NS 1,000 MG in Premix Bag 1 BAG IVPB SCH (19:30)
[2020-10-16] MEDS ORDERED: Acetaminophen 500 MG TAB ONE (20:51)
[2020-10-16 21:42] LABS: Troponin I 0.011 ng/mL (< 0.028)
--- NOTE | 2020-10-16 23:27 | PDOC.HHP ---
Hospitalist HPI - History of Present Illness Palpitations, seizures History of Present Illness: This is a 44-year-old female patient with a history of who presents with tachycardia and altered mental status. Of note, patient was supraventricular tachycardia and discharged on 08/23/2020 after she had a physical evaluation and she was supposed to follow-up with Dr. Devlin. She was started on low-dose beta-ginny and Lopressor prior to discharge. Patient noted that she has been having episodes of tachycardia which sometimes leads to her passing out. EMS was activated on account of altered mental status and at the time of EMS evaluation patient was altered and it was noted that she had repeated episodes of supraventricular tachycardia. Her heart rate had improved by the time she got to the ED. Interrogation of the pacemaker noted supraventricular tachycardia as high as 300/min sometimes. In the ED just noted that she had a seizure which was aborted with Ativan and Keppra. At the time of my evaluation patient was fully oriented and was able to communicate. Heart rate was within normal range she had no complaints at the moment besides concerned about her recurrent cardiac episodes Hospitalist ROS - Review of Systems Constitutional: denies: fever, chills, sweats Eyes: denies: pain, vision change, conjunctivae inflammation Respiratory: denies: cough, shortness of breath, hemoptysis Cardiovascular: reports: palpitations. denies: chest pain, orthopnea, paroxysmal noc. dyspnea Gastrointestinal: denies: nausea, vomiting, abdominal pain Musculoskeletal: denies: neck pain, shoulder pain Neurological: denies: weakness, numbness, incoordination All other systems reviewed; all pertinent +/- noted in HPI/Subj - Medication Medications: Medications: Refer to ambulatory list. Allergies: Quetiapine Hospitalist History - Past Medical History Other Medical History: seizures, COPD, sick sinus syndrome, ALS, osteoporosis lupus and CHF with reduced EF - Past Surgical History Other Surgical History: Cholecystectomy, section, appendectomy - Family History Family History: reports: no pertinent history - Social History Alcohol: reports: None Drugs: reports: marijuana Living Situation: With Family - Exam General Appearance: awake alert General - other findings: In no acute distress. Eye: PERRL, anicteric sclera ENT: normocephalic atraumatic Heart: RRR, no murmur, no gallops, no rubs Respiratory: CTAB, no wheezes, no rales, no ronchi Gastrointestinal: soft, non-tender, non-distended, normal bowel sounds Extremities: no cyanosis, no clubbing, no edema Neurological: cranial nerve grossly intact, no focal deficits Psychiatric: normal affect, normal behavior, A&O x 3 Hospitalist Results - Labs Result Diagrams: 10/16/20 18:14 Lab results: WBC 5.8 thou/uL (4.8-10.8) 10/16/20 18:14 Hgb 12.3 g/dL (12.0-16.0) 10/16/20 18:14 Hct 36.0 % (36.0-47.0) 10/16/20 18:14 MCV 89.2 fL (78.0-98.0) 10/16/20 18:14 Plt Count 224 thou/uL (130-400) 10/16/20 18:14 Neutrophils % 70.0 % (42.0-75.0) 10/16/20 18:14 Creatine Kinase 37 U/L (29-168) 10/16/20 18:14 Troponin I 0.011 ng/mL (< 0.028) 10/16/20 21:09 Lipase 39 U/L (8-78) 10/16/20 18:14 Urine Ketones Negative mg/dL (Negative) 10/16/20 18:26 Urine Blood Negative (Negative) 10/16/20 18:26 Urine Nitrite Negative (Negative) 10/16/20 18:26 Ur Leukocyte Esterase Negative Chicho/uL (Negative) 10/16/20 18:26 Hospitalist H&P A/P - Plan Plan: This is a 44-year-old female patient with multiple medical issues including seizures, ALS, supraventricular tachycardia sick sinus syndrome who presents with altered mental status and supraventricular tachycardia. SVT In the setting of sick sinus syndrome He has a pacemaker in place Currently in sinus rhythm We will monitor overnight on telemetry A. fib/cardiology consult in a.m. Acute encephalopathy Seizures/redo cerebral perfusion from arrhythmias Currently stable monitor. Seizures Resume Keppra Ativan for acute events. Neuro consult in a.m. Marijuana abuse UDS notes marijuana VT prophylaxisLovenox CODE STATUSfull code
[2020-10-17 01:24] VITALS: BMI 16.2
[2020-10-17 02:25] LABS: #Eosinphils 0.1 thou/uL (0.0-0.7); #Lymphocytes 1.2 thou/uL (1.20-3.40); #Monocytes 0.4 thou/uL (0.11-0.59); #Neutrophils 2.7 thou/uL (1.40-6.50); %Basophils 0.6 % (0.0-1.0); %Lymphocytes 27.9 % (21.0-51.0); %Monocytes 8.5 % (0.0-10.0); Mean Corpuscular Hemoglobin 30.6 pg (27.0-31.0); Mean Corpuscular Volume 90.2 fL (78.0-98.0); Mean Platelet Volume 8.1 fL (7.4-10.4); Platelet Count 189 thou/uL (130-400); Red Blood Cell (RBC) Count 3.28 mill/uL (4.20-5.40); White Blood Cell (WBC) Count 4.4 thou/uL (4.8-10.8)
[2020-10-17 02:50] LABS: Troponin I Less than 0.010 ng/mL (< 0.028)
[2020-10-17 03:13] LABS: Anion Gap 11 mmol/L (10-20); BUN (Urea Nitrogen) 5 mg/dL (7.0-18.7); Calc. Creatinine Clearance 78 mL/min (70-130); Calcium 7.2 mg/dL (7.8-10.44); Carbon Dioxide 18 mmol/L (22-29); Chloride 114 mmol/L (98-107); Glucose 88 mg/dL (70-105); Potassium 3.4 mmol/L (3.5-5.1); Sodium 140 mmol/L (136-145)
[2020-10-17 04:12] LABS: SARS-CoV-2 MS2 Positive; SARS-CoV-2 N Gene Negative; SARS-CoV-2 S Gene Negative; SARS-CoV-2 by NAA Not Detected (NotDetected); SARS-CoV-2 orf1ab Negative
[2020-10-17] MEDS: Metoprolol Tartrate 25 MG TAB PO SCH ×2 (08:49→23:19)
[2020-10-17] MEDS: levETIRAcetam 500 MG TAB PO SCH ×2 (08:49→23:18)
[2020-10-17] MEDS: Enoxaparin Sodium 40 MG/0.4 ML SYRINGE SC SCH (08:49)
[2020-10-17] MEDS ORDERED: FLU VACC QS2020-21(6MOS UP)/PF 60 MCG/0.5 ML SYRINGE IM ONE (09:00)
--- NOTE | 2020-10-17 16:11 | PDOC.HOSPP ---
- Subjective Encounter Date: 10/17/20 Encounter Time: 10:00 Subjective: F/u: palpitations THe patient denies palpitations today. She denies chest pain, dizziness or lightheadedness. She does get palpitations bending over or occasionally feels it in her neck. She states that she has had passed out before . Her palpitations occur when she is stressed. She does not drink excessive amounts of caffeine. She does not drink energy drinks . SHe does not drink alcohol. She smokes less than one pack a day. - Objective Vital Signs & Weight: Vital Signs (12 hours) Temp Pulse Resp BP BP Pulse Ox 10/17/20 15:10 98.6 F 74 16 99/56 L 98 10/17/20 11:36 98.4 F 77 16 106/66 99 10/17/20 07:35 98.3 F 87 18 111/62 98 10/17/20 04:30 98.2 F 84 16 116/72 98 Weight Admit Weight 103 lb 9.6 oz Weight 103 lb 9.6 oz Result Diagrams: 10/17/20 02:06 10/17/20 02:06 Hospitalist ROS - Review of Systems Constitutional: denies: fever, chills - Medication Medications: Active Medications Generic Name Dose Route Start Last Admin Trade Name Freq PRN Reason Stop Dose Admin Enoxaparin Sodium 40 mg 10/17/20 09:00 10/17/20 08:49 Enoxaparin Sodium 40 Mg/0.4 Ml Syringe SC 40 mg 0900 DAYSI Administration Levetiracetam 1,000 mg 10/17/20 09:00 10/17/20 08:49 Levetiracetam 500 Mg Tab PO 1,000 mg BID DAYSI Administration Metoprolol Tartrate 12.5 mg 10/17/20 09:00 10/17/20 08:49 Metoprolol Tartrate 25 Mg Tab PO 12.5 mg Q12HR DAYSI Administration - Exam General Appearance: NAD, awake alert Eye: PERRL, anicteric sclera ENT: normocephalic atraumatic, no oropharyngeal lesions Neck: no JVD Heart: RRR, no murmur, no gallops, no rubs Respiratory: CTAB, no wheezes, no rales, no ronchi Gastrointestinal: soft, non-tender, non-distended, normal bowel sounds, no splenomegaly Extremities: no cyanosis, no clubbing, no edema Skin: normal turgor, no lesions, no rashes Neurological: cranial nerve grossly intact, normal sensation to touch, no weakness Musculoskeletal: normal tone, normal strength, no muscle wasting Hosp A/P - Plan This is a 44 year old female patient who presented with palpitations, found to have an SVT SVT - cardiology has been consulted. EP has been consulted, will follow recommendations - currently in sinus rhythm, continue metoprolol and verapamil Hypokalemia - potassium 3.4, will replace SEizures - continue keppra GERD - continue famotidine Marijuana abuse - noted on utox Will monitor overnight pending EP consultation
[2020-10-17] MEDS ORDERED: Potassium Chloride 20 MEQ TAB PO SCH (16:15)
[2020-10-17] MEDS ORDERED: Magnesium Oxide 400 MG TAB PO SCH (16:30)
--- NOTE | 2020-10-17 19:05 | CON ---
DATE OF CONSULTATION: 10/17/2020 HISTORY OF PRESENT ILLNESS: I am seeing Ms. Pro at our [facility] for an Electrophysiology consultant in ergonomics and safety. Her problems are: 1. Recurrent narrow complex tachycardia episodes. a. Rapid ventricular rates are seen. 2. History of sick sinus syndrome status post dual-chamber pacemaker implantation on February 18, 2009 with a Medtronic Adapta device. 3. History of preserved LVEF by echo in 55% to 60% in 10/2019, no ischemic valve disease, normal left atrium. 4. History of seizure disorder with recent recurrence. 5. History of ALS. 6. History of lupus. ALLERGIES: QUETIAPINE. MEDICATIONS: At home included: 1. Prednisone. 2. Sertraline. 3. Levetiracetam. 4. Famotidine. 5. Lipitor. 6. Hydroxyzine. 7. Topiramate. 8. Meloxicam. 9. Cyclobenzaprine. 10. Metoprolol tartrate. 11. Verapamil. The patient has not been taking metoprolol reliably. SUBJECTIVE: Ms. Pro is here due to recurrent palpitations, dizziness, and loss of consciousness spells. She has had significant tachycardia paroxysms on presentation at this time "on EKG." She had also episodes of seizure activities, continued with Ativan and Keppra. The episodes are not clearly correlating to the seizure activity. She has been here in August when we evaluated her at this point due to comorbidities and medical management was pursued. Since then, though she could not tolerate her metoprolol medications and did not change the episodes, she continues to have rapid tachyarrhythmia episodes with syncopal spells. No angina. No fever, chills, REVIEW OF SYSTEMS: Rest of 12-point review of systems otherwise unremarkable. PAST MEDICAL HISTORY: As above; history of COPD, osteoporosis, history of reduced LVEF with normal LVEF on most recent echo, pacemaker implantation for sick sinus syndrome, ALS. PAST SURGICAL HISTORY: Significant for section, appendectomy, pacemaker implantation, cholecystectomy. FAMILY HISTORY: Not contributory. OBJECTIVE DATA: VITAL SIGNS: Blood pressure 99/56, heart rate 74, respiratory rate 16, temperature is 98.6 degrees Fahrenheit. GENERAL: Alert and oriented, frail young woman, in no apparent distress. NECK: Supple. Jugular veins are not distended. CHEST: Coarse without crackles. HEART: Sounds are regular to rate and rhythm. No murmur or gallop. ABDOMEN: Benign. Bowel sounds are positive. EXTREMITIES: Lower extremities without edema, clubbing, or cyanosis. Pulses are adequate. NEUROLOGIC: The patient is nonfocal. MUSCULOSKELETAL: Without joint pain or deformity. SKIN: Without rash. DATABASE: EKGs reviewed, revealing sinus rhythm, rate of 118 beats per minute on initial EKG, narrow QRS 70 beats per minute, QTc 468 milliseconds. Second EKG reveals a narrow complex SVT with ventricular rates of 220 beats per minute. Atrial tachycardia with somewhat variable AV conduction is the high suspicion on this EKG. Subsequent telemetry strips reveals atrial paced rhythm. LABORATORY DATA: White cell count 4.4, hemoglobin 10, platelet count is 189. Sodium 140, potassium 3.4, BUN is 5, creatinine 0.68. Troponin I 0.01, 0.011, and 0.01. TSH is 2.082, prolactin is 21.37. Brain CT from 10/16/2020 shows no acute intracranial process. Chest x-ray reveals no evidence of acute cardiopulmonary disease. The pacer interrogation was reviewed revealing a Medtronic Adapta dual-chamber pacemaker longevity 24 months, 6 to 41 months estimated. The parameters are adequate, impedances 799 and 519 ohms respectively. Episodes of tachyarrhythmias are seen. Longest R in 23 minutes with ventricular rates up to 300 beats per minute are noted. ASSESSMENT AND PLAN: Ms. Pro is a 44-year-old woman with history of multiple comorbidity issues including amyotrophic lateral sclerosis, seizure disorder, sick sinus syndrome, pacemaker implantation, prior history of tachyarrhythmias. More recently, her episodes are getting more frequent. She was here in August and we increased her AV carrie blocking regimen, but she could not tolerate it. She is now here for repeated episodes. We discussed the likely mechanism. I am concerned about potential toxicity issues with amiodarone. Alternatively, flecainide could be considered as an agent. It is quite also reasonable to consider EP study and ablation on her. We will make arrangements to have this happen since she is interested in this option. We discussed the risks of the EP study and ablation including tamponade, bleeding, stroke recurrences. She is interested to proceed. Job ID: [id number]
[2020-10-18 04:37] LABS: Hemoglobin 11.4 g/dL (12.0-16.0); Mean Corpuscular HGB CONC 32.6 g/dL (32.0-36.0); Mean Corpuscular Hemoglobin 29.6 pg (27.0-31.0); Mean Corpuscular Volume 90.7 fL (78.0-98.0); Mean Platelet Volume 7.9 fL (7.4-10.4); Platelet Count 214 thou/uL (130-400); Red Blood Cell (RBC) Count 3.86 mill/uL (4.20-5.40); White Blood Cell (WBC) Count 2.9 thou/uL (4.8-10.8)
[2020-10-18 04:56] LABS: Anion Gap 11 mmol/L (10-20); BUN (Urea Nitrogen) 5 mg/dL (7.0-18.7); Calc. Creatinine Clearance 71 mL/min (70-130); Calcium 8.4 mg/dL (7.8-10.44); Carbon Dioxide 23 mmol/L (22-29); Chloride 110 mmol/L (98-107); Glucose 82 mg/dL (70-105); Potassium 4.2 mmol/L (3.5-5.1); Sodium 140 mmol/L (136-145)
[2020-10-18] MEDS: Metoprolol Tartrate 25 MG TAB PO SCH ×2 (08:31→20:43)
[2020-10-18] MEDS: levETIRAcetam 500 MG TAB PO SCH ×2 (08:31→20:43)
[2020-10-18] MEDS: Enoxaparin Sodium 40 MG/0.4 ML SYRINGE SC SCH (09:16)
[2020-10-18] MEDS ORDERED: PHENYLEPHRINE-NS 100 MCG/ML 10 ML SYRINGE ONE (10:02)
[2020-10-18] MEDS ORDERED: PROPOFOL 200 MG/20 ML VIAL ONE (10:02)
[2020-10-18] MEDS ORDERED: Dexamethasone 20 MG/5 ML VIAL ONE (10:02)
[2020-10-18] MEDS ORDERED: Ondansetron PF 4 MG/2 ML Vial ONE (10:02)
[2020-10-18] MEDS ORDERED: Lidocaine 1% PF 5 ML VIAL ONE (10:02)
[2020-10-18] MEDS ORDERED: Fentanyl 100 MCG/2 ML VIAL ONE ×3 (10:51→13:55)
[2020-10-18] MEDS ORDERED: Propofol 1,000 MG/100 ML VIAL IV ONE (10:52)
[2020-10-18] MEDS ORDERED: Heparin 10,000 UNITS/ 10 ML VIAL ONE ×2 (11:16→11:18)
[2020-10-18] MEDS ORDERED: Adenosine 6 MG/2 ML VIAL ONE (12:31)
[2020-10-18] MEDS ORDERED: Isoproterenol 0.2 MG/1 ML AMP ONE (12:32)
[2020-10-18] MEDS ORDERED: Midazolam HCl 2 mg/2 ml Vial ONE (13:23)
[2020-10-18] MEDS ORDERED: Promethazine HCl 25 MG/ML VIAL ONE (13:34)
--- NOTE | 2020-10-18 13:44 | OP ---
DATE OF PROCEDURE: 10/18/2020 PROCEDURE PERFORMED: Electrophysiology study. REASON FOR PROCEDURE: Ms. Pro is a 44-year-old female with history of sarcoid ALS and seizure disorder, who presenting with recurrent tachy-palpitations. The EKG is suggestive of somewhat irregular, but tachycardic rhythm. Atrial fibrillation or atrial flutter suspected. Here for EP study to rule out ablatable SVTs. DESCRIPTION OF PROCEDURE: The patient received a deep sedation by anesthesia specialist. Left femoral venous area was prepped and draped, anesthetized using subcutaneous lidocaine. Under ultrasound guidance, the left femoral vein was cannulated x2. A 6- and 8-Irish short sheaths were introduced, through which a octapolar and decapolar catheters were advanced to the right atrium with the help of the Voalte mapping system. 3D map of the right atrium, CS, and His bundle positions were obtained. Catheters were placed in these positions. Pacing, mapping, and recording were obtained at each location as well including pacing the left atrium via the CS. Following findings were noted. Baseline rhythm was sinus rhythm with RR 967 milliseconds, IN 112 milliseconds, QRS 50 milliseconds, QT 405 milliseconds AH 58 milliseconds, HV 45 milliseconds. AV Wenckebach cycle length was 230 milliseconds. Retrograde Wenckebach cycle length was 300 milliseconds. Concentric retrograde VA conduction was seen. AV carrie ERP was measured at 600/220 milliseconds or less. No atrial capture was seen at 600/220 milliseconds. Ventricular extrastimuli testing was performed with up to 3 ventricular extrastimuli at [address] with ventral ERP achieved at 520/240/190/180 milliseconds. No ventricular arrhythmia was induced. Burst atrial pacing induced a short nonsustained atrial fibrillation with transient organization to an atypical atrial flutter was also transiently seen. This could be consistent with presenting rhythm. The burst atrial pacing and extrastimuli testing did not reinduce any additional atrial arrhythmias. No sustained atrial arrhythmia induced even after an administration up to 6 mcg of Isuprel and repeating the pacing maneuvers. At this point, decision was made to continue medical management. The catheter was removed from the body. The cardiac silhouette did not change throughout the procedure. The sheaths were pulled and manual pressure applied for hemostasis. CONCLUSION: 1. Nonsustained atrial fibrillation, atypical flutter is seen, inducible only. No typical atrial flutter. No sustained supraventricular tachycardia is seen apart from the above. 2. Normal AV carrie and sinus carrie function. 3. No evidence of dual AV carrie physiology or accessory pathway present. 4. No ventricular tachyarrhythmia inducible. 5. Cardiac silhouette did not change throughout the procedure. 6. Pacemaker function verified pre and post procedure. PLAN: Start flecainide therapy versus Multaq. Continue monitoring. Job ID: [id number]
[2020-10-18] MEDS ORDERED: Meperidine HCl/PF 25 MG/ML VIAL ONE (13:55)
[2020-10-18] MEDS ORDERED: diphenhydrAMINE 50 MG/ML VIAL ONE (14:02)
[2020-10-18] MEDS ORDERED: Ondansetron HCl/PF 4 MG/2 ML Vial IVP PRN (16:15)
[2020-10-18] MEDS ORDERED: Acetaminophen/Codeine 30-300mg Tablet PO PRN (16:15)
[2020-10-18] MEDS ORDERED: Promethazine HCl 25 MG/ML VIAL IM/IV PRN (16:15)
[2020-10-18] MEDS ORDERED: Meperidine HCl/PF 25 MG/ML VIAL IV PRN (16:15)
--- NOTE | 2020-10-18 17:08 | PDOC.HOSPP ---
- Subjective Encounter Date: 10/18/20 Encounter Time: 09:00 Subjective: F/u: atrial fibrillation The patient has no palpitations , chest pain or shortness of breath. She was anxious about EP study and was worried whether they would put her to sleep or not. - Objective Vital Signs & Weight: Vital Signs (12 hours) Temp Pulse Resp BP Pulse Ox 10/18/20 08:40 98 10/18/20 07:21 98.0 F 79 18 105/66 98 Weight Admit Weight 103 lb 9.6 oz Weight 103 lb 9.6 oz I&O: 10/17/20 10/18/20 10/19/20 06:59 06:59 06:59 Intake Total 990 Balance 990 Result Diagrams: 10/18/20 04:10 10/18/20 04:10 Hospitalist ROS - Review of Systems Constitutional: denies: fever - Medication Medications: Active Medications Generic Name Dose Route Start Last Admin Trade Name Freq PRN Reason Stop Dose Admin Enoxaparin Sodium 40 mg 10/17/20 09:00 10/18/20 09:16 Enoxaparin Sodium 40 Mg/0.4 Ml Syringe SC Not Given 0900 DAYSI Levetiracetam 1,000 mg 10/17/20 09:00 10/18/20 08:31 Levetiracetam 500 Mg Tab PO 1,000 mg BID DAYSI Administration Metoprolol Tartrate 12.5 mg 10/17/20 09:00 10/18/20 08:31 Metoprolol Tartrate 25 Mg Tab PO 12.5 mg Q12HR DAYSI Administration - Exam General Appearance: NAD, awake alert Eye: anicteric sclera ENT: normocephalic atraumatic Heart: RRR, no murmur, no gallops Respiratory: CTAB, no wheezes, no rales, no ronchi Gastrointestinal: soft, non-tender, non-distended, normal bowel sounds Extremities: no cyanosis, no clubbing Skin: normal turgor, no lesions Hosp A/P - Plan This is a 44 year old female patient who presented with palpitations, found to have an SVT SVT - cardiology has been consulted. EP study was performed today which showed nonsustained atrial fibrillation with atypical flutter inducible only. Plan to start fleicanide therapy while in the hospital and monitor for 24-48 hours per cardiology Leukopenia - WBC 2.9, no fevers, will monitor Anemia - stable, will monitor Hypokalemia - resolved SEizures - continue keppra GERD - continue famotidine Marijuana abuse - noted on utox
[2020-10-18] MEDS: Flecainide 50 MG TAB PO SCH (20:43)
[2020-10-18] MEDS: Acetaminophen/Codeine 30-300mg Tablet PO PRN (20:54)
[2020-10-19 05:27] LABS: Thyroid Stimulating Hormone 0.2376 uIU/mL (0.35-4.94)
[2020-10-19] MEDS: Enoxaparin Sodium 40 MG/0.4 ML SYRINGE SC SCH (08:03)
[2020-10-19] MEDS: Flecainide 50 MG TAB PO SCH ×2 (08:03→20:47)
[2020-10-19] MEDS: Metoprolol Tartrate 25 MG TAB PO SCH ×2 (08:04→20:47)
[2020-10-19] MEDS: levETIRAcetam 500 MG TAB PO SCH ×2 (08:04→20:46)
[2020-10-19] MEDS: Acetaminophen/Codeine 30-300mg Tablet PO PRN (08:07)
[2020-10-19] MEDS: Folic Acid 1 MG TAB PO SCH (10:27)
--- NOTE | 2020-10-19 12:41 | PDOC.HOSPP ---
- Subjective Encounter Date: 10/19/20 Encounter Time: 12:40 Subjective: F/u: SVT THe patient is s/p EP study yesterday with nonsustained afib and atypical atrial flutter. She was started on fleicanide on 10/18. She said it made her feel slightly short of breath temporarily but she feels okay now She denies palpitations, dizziness or lightheadedness. She desperately wants to go home because she has lupus and ALS. States her sister is her home health nurse and takes care of her at home - Objective Vital Signs & Weight: Vital Signs (12 hours) Temp Pulse Resp BP Pulse Ox 10/19/20 08:02 97.7 F 73 16 105/62 100 10/19/20 04:00 97.9 F 68 28 H 100/55 L 98 Weight Admit Weight 103 lb 9.6 oz Weight 103 lb I&O: 10/18/20 10/19/20 10/20/20 06:59 06:59 06:59 Intake Total 990 980 Balance 990 980 Result Diagrams: 10/18/20 04:10 10/18/20 04:10 Hospitalist ROS - Review of Systems Constitutional: denies: fever, chills - Medication Medications: Active Medications Generic Name Dose Route Start Last Admin Trade Name Freq PRN Reason Stop Dose Admin Acetaminophen/Codeine Phosphate 2 tab 10/18/20 16:15 10/19/20 08:07 Acetaminophen/Codeine 30-300mg Tablet PO 2 tab Q4H PRN Administration Moderate Pain (4-6) Enoxaparin Sodium 40 mg 10/17/20 09:00 10/19/20 08:03 Enoxaparin Sodium 40 Mg/0.4 Ml Syringe SC 40 mg 09 DAYSI Administration Flecainide Acetate 50 mg 10/18/20 21:00 10/19/20 08:03 Flecainide 50 Mg Tab PO 50 mg Q12HR DAYSI Administration Folic Acid 1 mg 10/19/20 09:00 10/19/20 10:27 Folic Acid 1 Mg Tab PO 1 mg DAILY DAYSI Administration Levetiracetam 1,000 mg 10/17/20 09:00 10/19/20 08:04 Levetiracetam 500 Mg Tab PO 1,000 mg BID DAYSI Administration Metoprolol Tartrate 12.5 mg 10/17/20 09:00 10/19/20 08:04 Metoprolol Tartrate 25 Mg Tab PO 12.5 mg Q12HR DAYSI Administration - Exam General Appearance: NAD, awake alert Eye: PERRL, anicteric sclera ENT: normocephalic atraumatic, no oropharyngeal lesions Neck: no JVD Heart: RRR, no murmur, no gallops, no rubs Respiratory: CTAB, no wheezes, no rales, no ronchi Gastrointestinal: soft, non-tender, non-distended, normal bowel sounds Hosp A/P - Plan This is a 44 year old female patient who presented with palpitations, found to have an SVT SVT - cardiology has been consulted. EP study was performed today which showed nonsustained atrial fibrillation with atypical flutter inducible only. - started fleicanide therapy. Monitor for another 48 hours per cardiology, likely d/c home tomorrow Leukopenia - WBC 2.9, no fevers, will monitor Folate deficiency anemia - folic acid low, start folate supplements Hypokalemia - resolved SEizures - continue keppra GERD - continue famotidine Marijuana abuse - noted on utox
[2020-10-20] MEDS ORDERED: Lorazepam 2 MG/ML VIAL ONE (01:44)
[2020-10-20] MEDS ORDERED: levETIRAcetam in NS 1,000 MG in Premix Bag 1 BAG IVPB SCH (02:00)
[2020-10-20] MEDS ORDERED: Lorazepam 2 MG/ML VIAL SLOW IVP PRN (02:14)
[2020-10-20] MEDS ORDERED: Lorazepam 2 MG/ML VIAL SLOW IVP SCH (02:15)
[2020-10-20 02:17] LABS: #Basophils 0.1 thou/uL (0.0-0.2); #Eosinphils 0.1 thou/uL (0.0-0.7); #Lymphocytes 1.8 thou/uL (1.20-3.40); #Monocytes 0.4 thou/uL (0.11-0.59); #Neutrophils 1.9 thou/uL (1.40-6.50); %Eosinophils 1.8 % (0.0-10.0); %Monocytes 9.3 % (0.0-10.0); %Neutrophils 44.9 % (42.0-75.0); Hemoglobin 12.6 g/dL (12.0-16.0); Mean Corpuscular Hemoglobin 30.4 pg (27.0-31.0); Mean Corpuscular Volume 89.5 fL (78.0-98.0); Mean Platelet Volume 7.7 fL (7.4-10.4); Platelet Count 241 thou/uL (130-400); Red Blood Cell (RBC) Count 4.15 mill/uL (4.20-5.40); White Blood Cell (WBC) Count 4.2 thou/uL (4.8-10.8)
[2020-10-20 02:34] LABS: Lactic Acid 3.1 mmol/L (0.5-2.2)
[2020-10-20 02:38] LABS: Anion Gap 17 mmol/L (10-20); BUN (Urea Nitrogen) 5 mg/dL (7.0-18.7); Calc. Creatinine Clearance 67 mL/min (70-130); Calcium 8.5 mg/dL (7.8-10.44); Carbon Dioxide 21 mmol/L (22-29); Chloride 107 mmol/L (98-107); Glucose 85 mg/dL (70-105); Magnesium 1.9 mg/dL (1.6-2.6); Potassium 3.6 mmol/L (3.5-5.1); Sodium 141 mmol/L (136-145)
[2020-10-20] MEDS: Metoprolol Tartrate 25 MG TAB PO SCH (08:16)
[2020-10-20] MEDS: Flecainide 50 MG TAB PO SCH (08:17)
[2020-10-20] MEDS: levETIRAcetam 500 MG TAB PO SCH (08:17)
[2020-10-20] MEDS: Folic Acid 1 MG TAB PO SCH (08:17)
[2020-10-20] MEDS: Enoxaparin Sodium 40 MG/0.4 ML SYRINGE SC SCH (08:18)
[2020-10-20 12:04] VITALS: BP 128/75; TEMP 98
--- NOTE | 2020-10-20 14:46 | PDOC.DS.DS ---
Provider - Provider Date of Admission: 10/16/20 20:38 Date of Discharge: 10/20/20 Admitting Provider: Daniel Morgan MD Consultations: Cardiology, Other (Electrophysiology) Primary Care Physician: NO PCP PROVIDER Course - Hospital Course Hospital Course: Patient is a 44-year-old female who presented with palpitations. She appeared to have SVT. She was seen by electrophysiology who did an EP study indicating A. fib and flutter without sustained inducible rhythms. Patient was subsequently recommended to have flecainide initiated. This was initiated and the patient was monitored while it was initiated. Patient did well other than having a seizure on the night of 10/19/2020. These were consistent with the patient's prior seizures and her known seizure disorder. Otherwise the patient did well and was eager for discharge. She was cleared to discharge to home on 10/20/2020 by cardiology. Resuscitation Status: 10/16/20 22:54 Resuscitation Status Routine Resuscitation Status: FULL: Full Resuscitation - Labs Lab Results: 10/20/20 02:10 10/20/20 02:10 Abnormal Lab Results - Last 48 hrs 10/19/20 04:18: Folate 6.50 L 10/19/20 04:18: TSH 3rd Generation 0.2376 L 10/20/20 02:10: Carbon Dioxide 21 L, BUN 5 L 10/20/20 02:10: Prolactin 44.35 H 10/20/20 02:10: Lactic Acid 3.1 H 10/20/20 02:10: WBC 4.2 L, RBC 4.15 L, RDW 11.0 L, Basophils % 2.0 H - Physical Exam Vitals: Vital Signs (12 hours) Temp Pulse Resp BP Pulse Ox 10/20/20 12:03 98.0 F 70 16 128/75 100 10/20/20 08:00 99 10/20/20 07:55 97.8 F 74 16 121/76 100 10/20/20 05:00 98.5 F 75 20 105/67 100 Weight Admit Weight 103 lb 9.6 oz Weight 98 lb 4.8 oz Physical Exam: The patient was seen and examined on the day of discharge. Plan - Discharge Medications Prescriptions: Metoprolol Tartrate [Lopressor] 12.5 mg PO Q12HR #30 tab Flecainide [Tambocor] 50 mg PO Q12HR #60 tab Home Medications: Medication Instructions Recorded Confirmed Type Atorvastatin Calcium [Lipitor] 40 mg PO HS 08/22/20 10/17/20 History Cyclobenzaprine HCl 5 mg PO PRN PRN 08/22/20 10/17/20 History Sertraline HCl 200 mg PO DAILY 08/22/20 10/17/20 History Topiramate [Topamax] 200 mg PO BID 08/22/20 10/17/20 History hydrOXYzine HCl [Hydroxyzine HCl] 25 mg PO BID 08/22/20 10/17/20 History levETIRAcetam 1,000 mg PO BID 08/22/20 10/17/20 History Flecainide [Tambocor] 50 mg PO Q12HR #60 tab 10/20/20 Rx Metoprolol Tartrate [Lopressor] 12.5 mg PO Q12HR #30 tab 10/20/20 Rx Allergies: quetiapine [From Seroquel] Allergy (Verified 10/17/20 01:26) - Discharge Instructions Activity:: Activity as Tolerated Nourishment:: Heart Healthy Diet - Follow up Plan Referrals: PROVIDER,NO PCP [Primary Care Provider] - 7 Days (Please call your Primary Care Physician and Dr. Devlin, and schedule a follow up appointment within 1 week) Berny Humphrey MD [Active] - 14 Days (CALL [facility]CTORS OFFICE TO SET UP FOLLOW UP APPOINTMENT ) Disposition: HOME Quality - Care Measures CORE MEASURES:: N/A
--- NOTE | 2020-10-22 22:23 | PQF ---
Dear : Godwin Wilson Date 10/23/2020 Please exercise your independent, professional judgment in responding to the clarification form. Clinical indicators are provided on the bottom of this form for your review Can yo please further clarify the specificity of encephalopathy? Please check appropriate box(es): [x ] Metabolic Encephalopathy [ ] Toxic Encephalopathy [ ] Other encephalopathy,please specify: [ ] Other diagnosis please specify [ ] Unable to determine Physician Signature: Date/Time: For continuity of documentation, please document condition throughout progress notes and discharge summary. Thank You. To be completed by CDI/Coding staff for physician review: Present Clinical Indicators - Signs / Symptoms / Labs Results and Location in Medical Record [ x ] Altered mental status H and P pg.1 [ x ] Acute encephalopathy H and P pg.3 [ x ] Seizure/ redo cerebral perfusion from arrhythmias H and P pg.3 [ x ] Recurrent palpitations, dizziness and loss of consciousness spells Consult pg.1 Dr. Davis [ x ] CT of brain: no acute intracranial process CT of brain 10/16 [ x ] UDS: positive for marijuana HP 10/16 Present Risk Factors Results and Location in Medical Record [ x ] SVT H and P pg.1 [ x ] Seizure H and P pg.1 [ x ] SSS H and P pg.2 [ x ] ALS H and P pg.2 [ x ] CHF H and P pg.2 [ x ] Marijuana abuse H and P pg.3 [ x ] Smoker PN 10/17 [ x ] Hypokalemia PN 10/17 Present Treatments Results and Location in Medical Record [ x ] IV Fluids MAR [ x ] Keppra 100mg IV MAR [ x ] Monitor and replacement of electrolytes PN 10/17 CDS/Insurance Sales Supervisor Signature: Kirby Watts Phone #: ext [phone] Date 10/23/2020 This is a permanent part of the Medical Record [facility]
--- NOTE | 2020-10-26 11:10 | EKG ---
Test Reason : TACHYCARDIA Blood Pressure : / mmHG Vent. Rate : 117 BPM Atrial Rate : 117 BPM P-R Int : 144 ms QRS Dur : 070 ms QT Int : 336 ms P-R-T Axes : 065 076 040 degrees QTc Int : 468 ms Sinus tachycardia Possible Left atrial enlargement Borderline ECG #1 Confirmed by JIMY RIBEIRO ([id number]), managing editor BECCA HUTCHINS ([id number]) on 10/26/2020 11:10:29 AM Referred By: Confirmed By:JIMY RIBEIRO
--- NOTE | 2020-10-26 11:14 | EKG ---
Test Reason : TACHYCARDIA Blood Pressure : / mmHG Vent. Rate : 220 BPM Atrial Rate : 220 BPM P-R Int : 082 ms QRS Dur : 064 ms QT Int : 184 ms P-R-T Axes : 070 058 247 degrees QTc Int : 352 ms Supraventricular tachycardia Septal infarct , age undetermined Abnormal ECG #2 Confirmed by JIMY RIBEIRO ([id number]), editor trade journal BECCA HUTCHINS ([id number]) on 10/26/2020 11:13:53 AM Referred By: Confirmed By:JIMY RIBEIRO
== END 2020-10-20 12:25 | disposition home or self-care (01) | DRG 273 ==
LOC: ERS 17:39 → 2NO 20:38
PROVIDERS: ADMIT Student in an Organized Health Care Education/Training Program; ATTEND Internal Medicine
PROC: 4A023FZ Measurement of Cardiac Rhythm, Percutaneous Approach (ICD-10-PCS; principal; 2020-10-18)
PROC: 4A0234Z Measurement of Cardiac Electrical Activity, Percutaneous Approach (ICD-10-PCS; 2020-10-18)
DX: I47.1 Supraventricular tachycardia (principal); G93.41 Metabolic encephalopathy; G12.21 Amyotrophic lateral sclerosis; I50.22 Chronic systolic (congestive) heart failure; Z20.822 Contact with and (suspected) exposure to COVID-19; J44.9 Chronic obstructive pulmonary disease, unspecified; I49.5 Sick sinus syndrome; M32.9 Systemic lupus erythematosus, unspecified; F12.10 Cannabis abuse, uncomplicated; F43.10 Post-traumatic stress disorder, unspecified; F41.9 Anxiety disorder, unspecified; E87.6 Hypokalemia; K21.9 Gastro-esophageal reflux disease without esophagitis; G40.909 Epilepsy, unspecified, not intractable, without status epilepticus; I48.4 Atypical atrial flutter; D72.819 Decreased white blood cell count, unspecified; D52.9 Folate deficiency anemia, unspecified; Z90.49 Acquired absence of other specified parts of digestive tract; Z95.0 Presence of cardiac pacemaker; Z88.8 Allergy status to other drugs, medicaments and biological substances; Z79.899 Other long term (current) drug therapy
CPT/HCPCS: 36415; 51701; 70450; 71045; 76942; 80048; 80306; 80307; 81003; 82550; 82607; 82746; 83605; 83690; 83735; 84146; 84443; 84484; 85025; 85027; 85379; 87635; 93005; 93010; 93613; 93620; 93623; 96365; 96367; 96375; J0153; J1100; J1200; J1644; J1650; J1953; J2060; J2175; J2250; J2405; J2550; J2704; J3010; J3475; U0003

== ENCOUNTER 2020-10-21 12:23 | Emergency (ER) | payer OTHER ==
[2020-10-21] MEDS ORDERED: Ondansetron PF 4 MG/2 ML Vial ONE (12:56)
[2020-10-21 13:36] LABS: #Lymphocytes 0.7 thou/uL (1.20-3.40); #Monocytes 0.3 thou/uL (0.11-0.59); #Neutrophils 1.9 thou/uL (1.40-6.50); %Basophils 0.9 % (0.0-1.0); %Eosinophils 1.5 % (0.0-10.0); %Lymphocytes 24.7 % (21.0-51.0); %Monocytes 9.6 % (0.0-10.0); %Neutrophils 63.2 % (42.0-75.0); Hemoglobin 13.1 g/dL (12.0-16.0); Mean Corpuscular HGB CONC 33.2 g/dL (32.0-36.0); Mean Corpuscular Hemoglobin 30.1 pg (27.0-31.0); Mean Corpuscular Volume 90.6 fL (78.0-98.0); Mean Platelet Volume 7.8 fL (7.4-10.4); Platelet Count 248 thou/uL (130-400); RBC Distribution Width 11.1 % (11.5-14.5); Red Blood Cell (RBC) Count 4.36 mill/uL (4.20-5.40)
[2020-10-21 13:44] LABS: Bilirubin Negative (Negative); Blood, Urine Negative (Negative); Clarity Clear (Clear); Glucose, Urine (Dipstick) Normal (Negative); Ketone, Urine Negative (Negative); Leukocyte Negative Leu/uL (Negative); Nitrite Negative (Negative); Protein, Urine (Dipstick) 10 mg/dL (Neg-Trace); Specific Gravity, Urine 1.019 (1.002-1.036); Urobilinogen Normal mg/dL (Less than 2)
[2020-10-21 13:59] LABS: ALT (SGPT) 8 U/L (8-55); AST (SGOT) 16 U/L (5-34); Alkaline Phosphatase 62 U/L (40-110); Anion Gap 12 mmol/L (10-20); BUN (Urea Nitrogen) 6 mg/dL (7.0-18.7); Bilirubin, Total 0.3 mg/dL (0.2-1.2); Calc. Creatinine Clearance 0 mL/min (70-130); Calcium 8.6 mg/dL (7.8-10.44); Carbon Dioxide 29 mmol/L (22-29); Chloride 104 mmol/L (98-107); Globulin 2.7 g/dL (2.4-3.5); Glucose 97 mg/dL (70-105); Potassium 3.7 mmol/L (3.5-5.1); Protein, Total 6.7 g/dL (6.0-8.3); Sodium 141 mmol/L (136-145)
[2020-10-21] MEDS ORDERED: diphenhydrAMINE 50 MG/ML VIAL ONE (14:08)
[2020-10-21] MEDS ORDERED: Acetaminophen 500 MG TAB ONE (14:08)
[2020-10-21] MEDS ORDERED: Promethazine HCl 25 MG/ML VIAL ONE (14:08)
[2020-10-21] MEDS ORDERED: Lidocaine 1% w/Epinephrine 1:100K 20 ML VIAL ONE (16:37)
--- NOTE | 2020-10-26 10:08 | EKG ---
Test Reason : Blood Pressure : / mmHG Vent. Rate : 094 BPM Atrial Rate : 094 BPM P-R Int : 150 ms QRS Dur : 082 ms QT Int : 398 ms P-R-T Axes : 078 048 058 degrees QTc Int : 497 ms Electronic atrial pacemaker Prolonged QT Abnormal ECG Confirmed by EMI ROJAS, JERI Villa ([id number]), film or videotape editor BECCA HUTCHINS ([id number]) on 10/26/2020 10:07:57 AM Referred By: Confirmed By:JERI MIDDLETON MD
== END 2020-10-21 17:05 | disposition home or self-care (01) ==
LOC: ERS 12:23
DX: R11.2 Nausea with vomiting, unspecified (principal); R51.9 Headache, unspecified; J44.9 Chronic obstructive pulmonary disease, unspecified; E78.00 Pure hypercholesterolemia, unspecified; Z86.73 Personal history of transient ischemic attack (TIA), and cerebral infarction without residual deficits; I50.9 Heart failure, unspecified; Z79.899 Other long term (current) drug therapy
CPT/HCPCS: 36415; 51701; 80053; 81003; 83605; 85025; 93005; 94760; 96374; 96375; J1200; J2405; J2550

== ENCOUNTER 2020-12-02 13:24 | Inpatient (IN) | payer OTHER ==
[~2020-12-02 13:24] MED LIST: Iopamidol 370 76% 100 ML VIAL ONE
--- NOTE | 2020-12-02 14:56 | CT ---
CT BRAIN WITHOUT CONTRAST: HISTORY: Altered mental status, history of ALS COMPARISON: 10/16/2020 FINDINGS: No evidence of acute infarct, hemorrhage, midline shift or abnormal extra-axial fluid collections is seen. The ventricular size is appropriate and the basilar cisterns are patent. The bony calvarium is intact. The visualized paranasal sinuses and mastoid air cells are well aerated. IMPRESSION: No CT evidence of acute intracranial process.
[2020-12-02] MEDS ORDERED: Ondansetron ODT 4 MG TAB ONE (15:03)
[2020-12-02] MEDS ORDERED: Meclizine HCl 25 MG TAB ONE (15:03)
[2020-12-02 15:20] LABS: #Basophils 0.1 thou/uL (0.0-0.2); #Lymphocytes 0.9 thou/uL (1.20-3.40); #Monocytes 0.6 thou/uL (0.11-0.59); #Neutrophils 4.6 thou/uL (1.40-6.50); %Basophils 1.2 % (0.0-1.0); %Eosinophils 0.8 % (0.0-10.0); %Lymphocytes 14.5 % (21.0-51.0); %Neutrophils 74.5 % (42.0-75.0); Hemoglobin 13.8 g/dL (12.0-16.0); Mean Corpuscular HGB CONC 33.7 g/dL (32.0-36.0); Mean Corpuscular Hemoglobin 29.9 pg (27.0-31.0); Mean Corpuscular Volume 88.7 fL (78.0-98.0); Mean Platelet Volume 8.7 fL (7.4-10.4); Platelet Count 240 thou/uL (130-400); RBC Distribution Width 11.6 % (11.5-14.5); White Blood Cell (WBC) Count 6.2 thou/uL (4.8-10.8)
--- NOTE | 2020-12-02 15:24 | RAD ---
Exam: Chest one view HISTORY:Dizziness x2 days. Pain. Comparison: 10/16/2020 FINDINGS: Cardiac silhouette:Normal cardiac silhouette. Stable dual lead left-sided transvenous pacemaker Aorta: Unremarkable Pulmonary vessels: Normal Costophrenic angles: Clear LUNGS: Hyperinflation without mass or consolidation. Pneumothorax: None Osseous abnormalities: None IMPRESSION: No acute cardiopulmonary process.
--- NOTE | 2020-12-02 16:26 | CT ---
EXAM: CT angiogram head and neck with IV contrast and 3-D reconstructions PROVIDED CLINICAL HISTORY: Neck pain and dizziness. COMPARISON: Noncontrast CT head on 12/02/2020 FINDINGS: Left subclavian cardiac pacemaking device is visualized. This does result in artifact through the asc ending thoracic aorta and origins of the great vessels which limits evaluation. However, there does appear to be a normal arrangement of the great vessels at the aortic arch which are patent. Portion r ight subclavian artery is obscured due to dense contrast in adjacent veins. The innominate artery and left subclavian arteries are patent. The bilateral common carotid arteries are patent. Artifact from postoperative changes related to anterior cervical fusion of the cervical spine limits evaluation of the internal carotid arteries; however, the bilateral internal carotid arteries otherwise appear patent. Left vertebral artery is small in size and likely terminates in PICA. Right vertebral artery is dominant and patent. The basilar artery is very small in size. type origins of the bilateral posterior cerebral fabio iker are present which are patent Bilateral middle cerebral and anterior cerebral arteries are patent. No focal stenosis or branch occl usion is seen. There is a small outpouching which is located in the region of the left MCA trifurcation likely involving an M2 branch of the left middle cerebral artery measuring 2 to 3 mm. Th is is suggestive of a very small aneurysm. No additional intracranial aneurysm is appreciated. No intracranial aneurysm is visualized on this exam. There is biapical pleural and parenchymal scarring. There are several nodular densities seen within t he right upper lobe which could be related to infectious or inflammatory process, but follow-up evaluation is recommended to ensure resolution of these nodular densities. Calcified granuloma is see n in the medial right upper lobe. Subcentimeter cavitary lesion is seen in the posterolateral medial right upper lobe. IMPRESSION: 1. Suggestion of a small 2 to 3 mm aneurysm involving the left MCA trifurcation and likely involving an M2 branch of the left middle cerebral artery. This is difficult to definitely delineate on this examination, and neurosurgical consultation with follow-up conventional angiogram is suggested. 2. No focal stenosis or branch occlusion is seen involving the [place] of [place] or vertebrobasilar sy stem. 3. Several subcentimeter nodular densities, some of which are irregular in shape, are seen within the right lung apex. This could be related to infectious or inflammatory process. Follow-up evaluation is recommended to ensure resolution. 4. Above findings discussed with STEPHANIE Abrams in the emergency department on 12/02/2020 at 1619 hours.
[2020-12-02] MEDS ORDERED: Fentanyl 100 MCG/2 ML VIAL ONE (16:59)
--- NOTE | 2020-12-02 17:37 | PDOC.HHP ---
Hospitalist HPI Dizziness History of Present Illness: PCP: [facility] The patient is a 44-year-old female with a past medical history significant for CVA (no residual deficits), lupus, ALS, seizure disorder, anxiety/PTSD, sick sin us syndrome (PM), COPD and HLD that presents to the emergency department for the above complaint. The patient reports the acute onset of dizziness starting yesterday morning. She reports that the room feels like it is spinning. It is present with head movement or ambulation. It is relieved with rest. She reports associated posterior neck pain, described as constant, "tremendous pain", exacerbated relieved by nothing. She reports associated tinnitus. She denies any recent fall or trauma. She had a recent cardiac ablation performed in October by Dr. Davis. She denies any recent fever/illness. No known sick contacts. Flecainide and metoprolol were recent additions to her home medication regimen after her recent cardiac ablation. She denies any chest pain, heart palpitations or syncope. She denies any swelling to lower extremities. She denies any shortness of breath, hemoptysis, cough, or wheezing. No history of DVT/PE. No history of COPD/asthma. She denies any abdominal pain, nausea, vomiting, diarrhea. Denies hematachezia/melena. Denies any dysuria or hematuria. She has been compliant with her medications since discharge in October. ED Course: VITAL SIGNS WedDec 02, 2020 13:26 ADELINE Garcia Katelyn BP: 133/74, Pulse: 95, Resp: 18, Temp: 98 (Oral), Pain: 7, O2 sat: 100 on (Room Air), Time: 12/02/2020 13:26. VITAL SIGNS WedDec 02, 2020 15:27 JOS Pollack Zachary BP: 131/60, Pulse: 100, Resp: 16, Temp: 98.2 (Oral), Pain: 8, O2 sat: 100 on (Room Air), Time: 12/02/2020 15:27. EKG a paced T wave inversions V3 through V6, no ST elevations. CT brain negative for acute process. CTA head and neck showed a 2 to 3 mm aneurysm in the left MCA Neurosurgery was consulted by ER MD. WBC 6.2 Troponin negative Medications: levoFLOXacin oral 500 mg Oral Ordered 17:22 12/02/2020 cefTRIAXone injection 1 g IV Piggy Back Ordered 17:18 12/02/2020 magnesium sulfate injection 2 g IV Fluid Infusion Ordered 17:16 12/02/2020 diphenhydrAMINE injection 25 mg IV Push Ordered 17:15 12/02/2020 metoclopramide injection 10 mg IV Push Ordered 17:15 12/02/2020 fentaNYL (PF) injection 50 mcg IV Push Given 17:04 12/02/2020 meclizine 25 mg Oral Given 15:12 12/02/2020 ondansetron 4 mg Sublingual Given 15:12 12/02/2020 sodium chloride 0.9 % intravenous 1 L IV Fluid Infusion Given 15:12 12/02/2020 Allergies/Adverse Reactions: Allergy/AdvReac Type Severity Reaction Status Date / Time quetiapine [From Seroquel] Allergy Verified 10/17/20 01:26 Home Medications: Medication Instructions Recorded Confirmed Type Atorvastatin Calcium [Lipitor] 40 mg PO HS 08/22/20 12/02/20 History Cyclobenzaprine HCl 5 mg PO PRN PRN 08/22/20 12/02/20 History Sertraline HCl 200 mg PO DAILY 08/22/20 12/02/20 History Topiramate [Topamax] 200 mg PO BID 08/22/20 12/02/20 History hydrOXYzine HCl [Hydroxyzine HCl] 25 mg PO BID 08/22/20 12/02/20 History levETIRAcetam 1,000 mg PO BID 08/22/20 12/02/20 History Flecainide [Tambocor] 50 mg PO Q12HR #60 tab 10/20/20 12/02/20 Rx Metoprolol Tartrate [Lopressor] 12.5 mg PO Q12HR #30 tab 10/20/20 12/02/20 Rx Past History: PMHx: Lupus, ALS, seizure disorder, PTSD, CVA, sick sinus syndrome, COPD, HLD PSHx: Recent cardiac ablation (10/31), pacemaker (2008), C3-C7 neck surgery, cholecystectomy, appendectomy FHx: Contributory for autoimmune disorders and cancer Social: Lives at home. Currently walks without any assistive devices. Smokes 1 to 2 cigarettes weekly, trying to quit. Smokes marijuana daily. No heavy alcohol intake. Does not work. Hospitalist HPI ROS All other systems reviewed; all pertinent +/- noted in HPI/Subj Hospitalist Exam General Appearance: NAD, awake alert. negative: ill appearing General - other findings: Cachectic Eye: PERRL, anicteric sclera ENT: normocephalic atraumatic, moist mucosa Neck: supple, no lymphadenopathy, no carotid bruit Heart: RRR, no gallops, no rubs, normal peripheral pulses, III/IV Respiratory: CTAB, no wheezes, no rales, no ronchi, no tachypnea Gastrointestinal: soft, non-tender, non-distended, normal bowel sounds, no guarding, no rigidity Extremities: no cyanosis, no edema Skin: no rashes Musculoskeletal: diffuse muscle atrophy Psychiatric: normal affect, A&O x 3 Hospitalist Results Result Diagrams: 12/02/20 15:08 12/02/20 16:56 Lab results: Laboratory Last Values WBC 6.2 thou/uL (4.8-10.8) 12/02/20 15:08 RBC 4.60 mill/uL (4.20-5.40) 12/02/20 15:08 Hgb 13.8 g/dL (12.0-16.0) 12/02/20 15:08 Hct 40.8 % (36.0-47.0) 12/02/20 15:08 MCV 88.7 fL (78.0-98.0) 12/02/20 15:08 MCH 29.9 pg (27.0-31.0) 12/02/20 15:08 MCHC 33.7 g/dL (32.0-36.0) 12/02/20 15:08 RDW 11.6 % (11.5-14.5) 12/02/20 15:08 Plt Count 240 thou/uL (130-400) 12/02/20 15:08 MPV 8.7 fL (7.4-10.4) 12/02/20 15:08 Neutrophils % 74.5 % (42.0-75.0) 12/02/20 15:08 Lymphocytes % 14.5 % (21.0-51.0) L 12/02/20 15:08 Monocytes % 9.0 % (0.0-10.0) 12/02/20 15:08 Eosinophils % 0.8 % (0.0-10.0) 12/02/20 15:08 Basophils % 1.2 % (0.0-1.0) H 12/02/20 15:08 Neutrophils # 4.6 thou/uL (1.40-6.50) 12/02/20 15:08 Lymphocytes # 0.9 thou/uL (1.20-3.40) L 12/02/20 15:08 Monocytes # 0.6 thou/uL (0.11-0.59) H 12/02/20 15:08 Eosinophils # 0.0 thou/uL (0.0-0.7) 12/02/20 15:08 Basophils # 0.1 thou/uL (0.0-0.2) 12/02/20 15:08 Troponin I Less than 0.010 ng/mL (< 0.028) 12/02/20 15:08 EKG Status: image reviewed by me, report reviewed by me Additional Comments: 12 lead EKG interpreted by Emergency Department Physician at time of study, Rate of 95. Electronic atrial pacemaker. MIKKI. T wave inversion in Anterior leades V3-V6. No ST elevation. Chest x-ray Status: report reviewed by me Additional Comments: IMPRESSION: No acute cardiopulmonary process. CT scan - head Status: report reviewed by me Additional Comments: CT brain: IMPRESSION: No CT evidence of acute intracranial process CTA head and Neck: IMPRESSION: 1. Suggestion of a small 2 to 3 mm aneurysm involving the left MCA trifurcation and likely involving an M2 branch of the left middle cerebral artery. This is difficult to definitely delineate on this examination, and neurosurgical consultation with follow-up conventional angiogram is suggested. 2. No focal stenosis or branch occlusion is seen involving the [place] of Mayer or vertebrobasilar system. 3. Several subcentimeter nodular densities, some of which are irregular in shape, are seen within the right lung apex. This could be related to infectious or inflammatory process. Follow-up evaluation is recommended to ensure resolution. 4. Above findings discussed with STEPHANIE Abrams in the emergency department on 12/02/2020 at 1619 hours. Hospitalist H&P A/P (1) Brain aneurysm Status: Acute (2) Dizziness Code(s): R42 - DIZZINESS AND GIDDINESS Status: Acute (3) Chronic systolic heart failure Code(s): I50.22 - CHRONIC SYSTOLIC (CONGESTIVE) HEART FAILURE Status: Acute (4) COPD (chronic obstructive pulmonary disease) Status: Acute (5) CVA (cerebral vascular accident) Code(s): I63.9 - CEREBRAL INFARCTION, UNSPECIFIED Status: Acute (6) Seizure disorder Code(s): G40.909 - EPILEPSY, UNSP, NOT INTRACTABLE, WITHOUT STATUS EPILEPTICUS Status: Acute (7) PTSD (post-traumatic stress disorder) Code(s): F43.10 - POST-TRAUMATIC STRESS DISORDER, UNSPECIFIED Status: Acute (8) PTSD (post-traumatic stress disorder) Code(s): F43.10 - POST-TRAUMATIC STRESS DISORDER, UNSPECIFIED Status: Acute (9) Lupus Code(s): M32.9 - SYSTEMIC LUPUS ERYTHEMATOSUS, UNSPECIFIED Status: Acute (10) ALS (amyotrophic lateral sclerosis) Code(s): G12.21 - AMYOTROPHIC LATERAL SCLEROSIS Status: Acute Plan: Patient with lupus/ALS, seizure disorder, PTSD, systolic CHF (PM/AICD), COPD presents for headache, neck stiffness and dizziness x2 days. CTA showed 2 to 3 mm left MCA aneurysm. #Brain aneurysm Presented for Neck stiffness, H/A, intermittent dizziness with head/eye movement, and tinnitus. DDX include BPPV, Idiopathic Intracranial HTN, Temporal Arteritis, Venous sinus thrombus MRI brain and echocardiogram. Will consult neurology Neuro checks q4 hours Give ASA. Neurosurgery consulted in ER. Recommendation BP control, pain control, nausea control. Labetalol and hydralazine as needed SBP greater than 160. Zofran as needed Oxycodone as needed. Check TSH, ESR, CRP Given Abx in ED, will stop abx for now, no leukocytosis, she is afebrile. #Dizziness Reported present only with head movement or eye movement. CT/CTA as per above. Add Meclizine scheduled. Plan as per above. #Chronic systolic heart failure Chronic, appears stable. Recent ablation (10/31), started on metoprolol and flecainide. Pacemaker (2008) EKG a paced with T inversions V3 through V6, no ST elevation Continue home dose flecainide and metoprolol. #COPD Chronic, appears stable. CXR no acute process. No home medications. #CVA No residual deficits. #Seizure disorder Chronic. Restart home dose Keppra Topamax. #PTSD Denies SI/HI. Restart home dose Atarax and sertraline. #Lupus Chronic, appears stable. #ALS Chronic, appears stable. SCDs for DVT prophylaxis. No GI prophylaxis. CODE STATUS full code. Discussed the case with attending physician, Dr. Vaughn who agrees with plan of care.
[2020-12-02 17:39] LABS: ALT (SGPT) Less than 7 U/L (8-55); AST (SGOT) 14 U/L (5-34); Albumin 3.6 g/dL (3.5-5.0); Alkaline Phosphatase 67 U/L (40-110); Anion Gap 12 mmol/L (10-20); BUN (Urea Nitrogen) 5 mg/dL (7.0-18.7); Bilirubin, Total 0.3 mg/dL (0.2-1.2); Calc. Creatinine Clearance 0 mL/min (70-130); Calcium 7.8 mg/dL (7.8-10.44); Carbon Dioxide 19 mmol/L (22-29); Chloride 113 mmol/L (98-107); Globulin 2.5 g/dL (2.4-3.5); Glucose 82 mg/dL (70-105); Potassium 3.5 mmol/L (3.5-5.1); Protein, Total 6.1 g/dL (6.0-8.3); Sodium 140 mmol/L (136-145)
[2020-12-02] MEDS ORDERED: cefTRIAXone\\ROCEPHIN 1 GM VIAL ONE (18:06)
[2020-12-02] MEDS ORDERED: Metoclopramide HCl 10 MG/2 ML VIAL ONE (18:06)
[2020-12-02] MEDS ORDERED: diphenhydrAMINE 50 MG/ML VIAL ONE (18:06)
[2020-12-02] MEDS ORDERED: Magnesium 2 GM/50 ML BAG (IN WATER) ONE (18:06)
[2020-12-02] MEDS ORDERED: diphenhydrAMINE 50 MG/ML VIAL IVP SCH (18:15)
[2020-12-02] MEDS ORDERED: cefTRIAXone\\ROCEPHIN 1 GM in Sodium Chloride 0.9% 100 ML IVPB SCH (18:15)
[2020-12-02] MEDS ORDERED: Metoclopramide HCl 10 MG/2 ML VIAL IVP SCH (18:15)
[2020-12-02] MEDS ORDERED: Magnesium 2 GM/50 ML 2 GM in Premix Bag 1 BAG IVPB SCH (18:15)
[2020-12-02] MEDS ORDERED: Ondansetron PF 4 MG/2 ML Vial IVP PRN (18:29)
[2020-12-02] MEDS ORDERED: Senokot S 8.6-50 MG TAB PO PRN (18:29)
[2020-12-02] MEDS ORDERED: Ondansetron ODT 4 MG TAB PO PRN (18:29)
[2020-12-02] MEDS ORDERED: Bisacodyl 5 MG TAB PO PRN (18:29)
[2020-12-02] MEDS ORDERED: hydrALAZINE 20 MG/ML VIAL SLOW IVP PRN (18:32)
[2020-12-02] MEDS ORDERED: Labetalol HCl 100 MG/20 ML VIAL SLOW IVP PRN (18:32)
[2020-12-02 19:45] LABS: SARS-CoV-2 NAA Rapid Test Not Detected (NotDetected)
[2020-12-02] MEDS ORDERED: Aspirin 325 mg Enteric Coated Tablet PO SCH (20:45)
[2020-12-02 21:24] VITALS: BMI 15.2
[2020-12-02] MEDS: Topiramate 100 MG TAB PO SCH (21:51)
[2020-12-02] MEDS: Meclizine HCl 12.5 MG TAB PO SCH (21:51)
[2020-12-02] MEDS: Flecainide 50 MG TAB PO SCH (21:52)
[2020-12-02] MEDS: Atorvastatin Calcium 40 MG TAB PO SCH (21:52)
[2020-12-02] MEDS: levETIRAcetam 500 MG TAB PO SCH (21:52)
[2020-12-02] MEDS: hydrOXYzine 25 MG TAB PO SCH (21:52)
[2020-12-02] MEDS: Acetaminophen 325 MG TAB PO PRN (21:52)
[2020-12-02 22:20] LABS: Troponin I Less than 0.010 ng/mL (< 0.028)
--- NOTE | 2020-12-02 22:32 | CON ---
DATE OF CONSULTATION: Ms. Pro is a 44-year-old female with an extensive past medical history who reportedly presented for dizziness, ataxia, headache, and neck pain over the last 2 days without preceding injury. She denies recent falls. Neurosurgery has been consulted due to findings of a small aneurysm. CTA of the head demonstrates a 2 to 3 mm aneurysm involving the left MCA trifurcation. Noncontrast CT of the head is negative for acute intracranial abnormalities, including no subarachnoid hemorrhage. Of note, she has a prior history of C4-C7 ACDF with hardware construct evident on CTA of the neck. There is no apparent screw loosening or hardware malfunction, and patient appears to be fused. Our team has recommended completion of a lumbar puncture to assess for xanthochromia. This can be done with Interventional Radiology tomorrow. The lumbar puncture findings will dictate the timing for completion of cerebral angiography with Dr. Sifuentes. If the lumbar puncture is positive for xanthochromia, then angiography would likely be completed during her hospitalization. If LP is negative, then she can likely follow up for an elective cerebral angiography. Based on the current imaging studies, there is lower suspicion for ruptured aneurysm given no evidence of subarachnoid hemorrhage on CT of the brain. CT scans of the brain are approximately 98% sensitive for subarachnoid hemorrhage. Most likely, the patient's aneurysm is an incidental finding and unrelated to her reported symptoms. Nonetheless, the patient will be admitted for symptomatic control and further workup will be pursued. Job ID: [id number] [facility]
[2020-12-02] MEDS: Metoprolol Tartrate 25 MG TAB PO SCH (22:59)
[2020-12-03 05:30] LABS: Anion Gap 8 mmol/L (10-20); BUN (Urea Nitrogen) 5 mg/dL (7.0-18.7); Calc. Creatinine Clearance 63 mL/min (70-130); Calcium 7.7 mg/dL (7.8-10.44); Carbon Dioxide 20 mmol/L (22-29); Chloride 116 mmol/L (98-107); Glucose 85 mg/dL (70-105); Potassium 3.3 mmol/L (3.5-5.1); Sodium 141 mmol/L (136-145)
[2020-12-03 05:37] LABS: #Eosinphils 0.1 thou/uL (0.0-0.7); #Lymphocytes 1.1 thou/uL (1.20-3.40); #Monocytes 0.5 thou/uL (0.11-0.59); %Eosinophils 3.6 % (0.0-10.0); %Lymphocytes 29.2 % (21.0-51.0); %Monocytes 12.4 % (0.0-10.0); %Neutrophils 53.9 % (42.0-75.0); Hemoglobin 10.7 g/dL (12.0-16.0); Mean Corpuscular HGB CONC 33.6 g/dL (32.0-36.0); Mean Corpuscular Volume 89.3 fL (78.0-98.0); Mean Platelet Volume 8.5 fL (7.4-10.4); Platelet Count 204 thou/uL (130-400); RBC Distribution Width 11.3 % (11.5-14.5); Red Blood Cell (RBC) Count 3.56 mill/uL (4.20-5.40); White Blood Cell (WBC) Count 3.8 thou/uL (4.8-10.8)
[2020-12-03] MEDS ORDERED: Potassium Chloride 20 MEQ TAB PO SCH (07:45)
[2020-12-03] MEDS: Metoprolol Tartrate 25 MG TAB PO SCH ×2 (08:05→20:55)
[2020-12-03] MEDS ORDERED: Aspirin 81 mg Enteric Coated Tablet PO SCH ×2 (09:00)
[2020-12-03] MEDS ORDERED: Aspirin 325 mg Enteric Coated Tablet PO SCH (09:00)
[2020-12-03] MEDS: Topiramate 100 MG TAB PO SCH ×2 (09:23→20:56)
[2020-12-03] MEDS: levETIRAcetam 500 MG TAB PO SCH ×2 (09:24→20:54)
[2020-12-03] MEDS: hydrOXYzine 25 MG TAB PO SCH ×2 (09:24→20:57)
[2020-12-03] MEDS: Meclizine HCl 12.5 MG TAB PO SCH ×3 (09:24→20:57)
[2020-12-03] MEDS: Folic Acid 1 MG TAB PO SCH (09:25)
[2020-12-03] MEDS: Flecainide 50 MG TAB PO SCH ×2 (09:25→20:56)
--- NOTE | 2020-12-03 11:14 | PRG ---
DATE OF SERVICE: 12/03/2020 This is a 50-minute initial hospital visit note, in which 15 minutes were spent reviewing the imaging record, evaluation, examination, patient formulation of plan. Greater than 50% time was spent in counseling on Jayashree Pro. Ms. Pro is a complicated medical in particular neurologic history at 44 years of age. She by report records from [place] per the patient, has a history of ALS and lupus and she also has a history of seizure disorder and headache for which she takes Keppra and Topamax respectively. She has had symptoms of dizziness coupled with which she describes as high-frequency hearing loss and she presented at least three different times over the last four months to [facility], but also to [facility]. Review of her most recent head CT demonstrates no evidence of subarachnoid hemorrhage. CT angiogram was done because the patient endorsed headache and this appears to be diffuse headache, not necessarily localized to the left side. This is important as she has evidence of what looks to be just distal to the MCA trifurcation on the left side perhaps 2 mm aneurysm. It is difficult to tell if this is, however, true aneurysm given the small size or just a small fitter's assistant. Nevertheless, I think she would benefit from a formal cerebral angiogram. The question is when to do it in the presence of a negative head CT. The next step is a lumbar puncture. She is undergoing that today. She cannot get an MRI of the brain as she has a pacemaker for history of arrhythmia. We will assess for xanthochromia on the lumbar puncture, should this be negative, then we can arrange for an outpatient elective cerebral angiogram with my colleague, Dr. Sifuentes at this point. We will continue to follow the patient, but my suspicion as her dizziness and balance abnormality are likely related to an inner ear dysfunction such as labyrinthitis for Meniere's disease. Job ID: [id number]
--- NOTE | 2020-12-03 12:41 | RAD ---
FLUOROSCOPICALLY GUIDED LUMBAR PUNCTURE: DATE: 12/03/2020 HISTORY: 44-year-old female with intracranial aneurysm. Lumbar puncture requested to evaluate for occult ruptu re or leak of aneurysm. TECHNIQUE: Signed informed consent obtained. Patient placed prone on fluoroscopy table. Skin of lower back prepa red and draped in usual sterile fashion. 25-gauge needle used to apply buffered lidocaine superficially and deeply. Level selected:L2-3. Approach:right paramedian interlaminar. 22-gauge spinal needle advanced into spinal canal under brief, intermittent fluoroscopy. Upon return of clear CSF, 9.5 mL CSF was collected in 4 separate vials, and sent to laboratory for an alysis. Spinal needle was removed. Patient tolerated procedure well. No complications. Total fluoroscopy time:0.9 minutes. Dose area product:19.6 uGy*m^2. FINDINGS: CSF appearance: Clear and colorless IMPRESSION: Successful lumbar puncture yielding 9.5 mL of clear cerebrospinal fluid
[2020-12-03 12:45] LABS: CSF, Glucose 49 mg/dl (40-70); CSF, Protein 57 mg/dL (15-40)
[2020-12-03 13:26] LABS: CSF Source CSF; Clarity Clear (Clear); Tube # 4
--- NOTE | 2020-12-03 13:54 | PRG ---
DATE OF SERVICE: 12/03/2020 Ms. Pro's CSF is negative for xanthochromia with very few of any red blood cells as well. She has slightly elevated protein which is nonspecific. Her glucose is normal. I think at this point, we are dealing with an inner ear issue such as perhaps labyrinthitis or again Meniere disease, perhaps continued meclizine and outpatient followup with ENT or primary care doctor will be of benefit. From an aneurysm standpoint, there is no concern of aneurysmal rupture and further the size of her aneurysm makes her risk of annual hemorrhage well under 1% per year and as such, there is no emergency to this case. She may be discharged, and I will arrange followup in my clinic with myself and elective diagnostic with potential therapeutic cerebral angiography in the future with Dr. Sifuentes. Job ID: [id number]
[2020-12-03] MEDS: oxyCODONE 5 MG TAB PO PRN ×2 (14:07→21:05)
--- NOTE | 2020-12-03 14:09 | CON ---
NEUROLOGY CONSULTATION DATE OF CONSULTATION: 12/03/2020 REASON FOR CONSULTATION: Dizziness. HISTORY OF PRESENT ILLNESS: Ms. Pro is a 44-year-old female with past medical history significant for prior CVA with no residual deficits, lupus, ALS, seizure disorder, anxiety/PTSD, sick sinus syndrome, COPD and hyperlipidemia, presented to the emergency department with dizziness with severe neck pain and stiffness. Per the patient, she had an acute onset of dizziness, which started on 12/01/2020 and she felt as if the room is spinning in front of her eyes, which is present with head movements and is relieved with rest. This was also associated with severe posterior neck pain and stiffness. The patient reports associated tinnitus. She denies any recent fever, illness, trauma, falls, shortness of breath, cough, focal paresthesias, focal weakness, nausea, vomiting but does complain of headache, chest pain, abdominal pain, recent exposure to COVID-19. In the emergency room, head CT was done, which was negative for acute intracranial pathology. CT of the head and neck show 2 to 3 mm aneurysm in the left MCA. Neurosurgery was consulted, which recommended CT angiogram because the patient endorsed headache. CT angiogram showed 2 mm aneurysm distal to the MCA trifurcation on the left. The patient has been seen by Dr. Mclaughlin, the neurosurgeon, and he think the patient will benefit from a formal cerebral angiogram versus there is a concern about subarachnoid hemorrhage. The patient had to undergo lumbar puncture, but she cannot have MRI because the pacemaker is not compatible with MRI. The patient is scheduled for undergoing lumbar puncture today. ENT consult was also suggested. She was admitted for further evaluation. REVIEW OF SYSTEMS: All systems reviewed and were negative except the pertinent positives and negatives mentioned in the HPI. ALLERGIES: SEROQUEL. Allergies/Adverse Reactions: Allergy/AdvReac Type Severity Reaction Status Date / Time quetiapine [From Seroquel] Allergy Verified 10/17/20 01:26 Home Medications: Medication Instructions Recorded Confirmed Type Atorvastatin Calcium [Lipitor] 40 mg PO HS 08/22/20 12/02/20 History Cyclobenzaprine HCl 5 mg PO PRN PRN 08/22/20 12/02/20 History Sertraline HCl 200 mg PO DAILY 08/22/20 12/02/20 History Topiramate [Topamax] 200 mg PO BID 08/22/20 12/02/20 History hydrOXYzine HCl [Hydroxyzine HCl] 25 mg PO BID 08/22/20 12/02/20 History levETIRAcetam 1,000 mg PO BID 08/22/20 12/02/20 History Flecainide [Tambocor] 50 mg PO Q12HR #60 tab 10/20/20 12/02/20 Rx Metoprolol Tartrate [Lopressor] 12.5 mg PO Q12HR #30 tab 10/20/20 12/02/20 Rx PAST MEDICAL HISTORY: Lupus, ALS, seizure disorder, PTSD, CVA, sick sinus syndrome, COPD, hyperlipidemia. PAST SURGICAL HISTORY: Recent cardiac ablation in October 2020, pacemaker placement in 2008, C3-C7 neck surgery, cholecystectomy, appendectomy. FAMILY HISTORY: No significant family history of cancer or CVA. SOCIAL HISTORY: The patient lives at home. She walks without any assistive devices. Smokes one to two cigarettes a day. Smokes marijuana daily. Denies alcohol or illegal drug use. She is disabled. PHYSICAL EXAMINATION: 103/58 15 66 General Appearance: NAD, awake alert. negative: ill appearing General - other findings: Cachectic Eye: PERRL, anicteric sclera ENT: normocephalic atraumatic, moist mucosa Neck: supple, no lymphadenopathy, no carotid bruit Heart: RRR, no gallops, no rubs, normal peripheral pulses, III/IV Respiratory: CTAB, no wheezes, no rales, no ronchi, no tachypnea Gastrointestinal: soft, non-tender, non-distended, normal bowel sounds, no guarding, no rigidity Extremities: no cyanosis, no edema Skin: no rashes Musculoskeletal: diffuse muscle atrophye. Neurologic: Mental Status: The patient is alert and oriented to person, place, and time. Speech is clear. Cranial nerves 2 through 12 intact. Motor, muscle tone and bulk are normal. Moving all four extremities equally and symmetrically. Sensory intact. Cerebellar, finger-nose testing intact. Gait deferred due to patient's safety reason. DATA REVIEWED: Labs were reviewed were essentially unremarkable. WBC 6.2 thou/uL (4.8-10.8) 12/02/20 15:08 RBC 4.60 mill/uL (4.20-5.40) 12/02/20 15:08 Hgb 13.8 g/dL (12.0-16.0) 12/02/20 15:08 Hct 40.8 % (36.0-47.0) 12/02/20 15:08 MCV 88.7 fL (78.0-98.0) 12/02/20 15:08 MCH 29.9 pg (27.0-31.0) 12/02/20 15:08 MCHC 33.7 g/dL (32.0-36.0) 12/02/20 15:08 RDW 11.6 % (11.5-14.5) 12/02/20 15:08 Plt Count 240 thou/uL (130-400) 12/02/20 15:08 MPV 8.7 fL (7.4-10.4) 12/02/20 15:08 Neutrophils % 74.5 % (42.0-75.0) 12/02/20 15:08 Lymphocytes % 14.5 % (21.0-51.0) L 12/02/20 15:08 Monocytes % 9.0 % (0.0-10.0) 12/02/20 15:08 Eosinophils % 0.8 % (0.0-10.0) 12/02/20 15:08 Basophils % 1.2 % (0.0-1.0) H 12/02/20 15:08 Neutrophils # 4.6 thou/uL (1.40-6.50) 12/02/20 15:08 Lymphocytes # 0.9 thou/uL (1.20-3.40) L 12/02/20 15:08 Monocytes # 0.6 thou/uL (0.11-0.59) H 12/02/20 15:08 Eosinophils # 0.0 thou/uL (0.0-0.7) 12/02/20 15:08 Basophils # 0.1 thou/uL (0.0-0.2) 12/02/20 15:08 Troponin I Less than 0.010 ng/mL (< 0.028) 12/02/20 15:08 EKG Status: image reviewed by me, report reviewed by me Additional Comments: 12 lead EKG interpreted by Emergency Department Physician at time of study, Rate of 95. Electronic atrial pacemaker. MIKKI. T wave inversion in Anterior leades V3-V6. No ST elevation. Chest x-ray Status: report reviewed by me Additional Comments: IMPRESSION: No acute cardiopulmonary process. CT scan - head Status: report reviewed by me Additional Comments: CT brain: IMPRESSION: No CT evidence of acute intracranial process CTA head and Neck: IMPRESSION: 1. Suggestion of a small 2 to 3 mm aneurysm involving the left MCA trifurcation and likely involving an M2 branch of the left middle cerebral artery. This is difficult to definitely delineate on this examination, and neurosurgical consultation with follow-up conventional angiogram is suggested. 2. No focal stenosis or branch occlusion is seen involving the [place] or vertebrobasilar system. 3. Several subcentimeter nodular densities, some of which are irregular in shape, are seen within the right lung apex. This could be related to infectious or inflammatory process. Follow-up evaluation is recommended to ensure resolution. 4. Above findings discussed with STEPHANIE Abrams in the emergency department on 12/02/2020 at 1619 hour ASSESSMENT AND PLAN: (1) Brain aneurysm Status: Acute (2) Dizziness Code(s): R42 - DIZZINESS AND GIDDINESS Status: Acute (3) Chronic systolic heart failure Code(s): I50.22 - CHRONIC SYSTOLIC (CONGESTIVE) HEART FAILURE Status: Acute (4) COPD (chronic obstructive pulmonary disease) Status: Acute (5) CVA (cerebral vascular accident) Code(s): I63.9 - CEREBRAL INFARCTION, UNSPECIFIED Status: Acute (6) Seizure disorder Code(s): G40.909 - EPILEPSY, UNSP, NOT INTRACTABLE, WITHOUT STATUS EPILEPTICUS Status: Acute (7) PTSD (post-traumatic stress disorder) Code(s): F43.10 - POST-TRAUMATIC STRESS DISORDER, UNSPECIFIED Status: Acute (8) PTSD (post-traumatic stress disorder) Code(s): F43.10 - POST-TRAUMATIC STRESS DISORDER, UNSPECIFIED Status: Acute (9) Lupus Code(s): M32.9 - SYSTEMIC LUPUS ERYTHEMATOSUS, UNSPECIFIED Status: Acute (10) ALS (amyotrophic lateral sclerosis) Code(s): G12.21 - AMYOTROPHIC LATERAL SCLEROSIS Status: Acute Ms. Jayashree Pro is a 44-year-old female consulted because of dizziness, neck stiffness and headache with a concern about subarachnoid hemorrhage. The patient is already scheduled for lumbar puncture, ordered by Neurosurgery. There is also high suspicion of inner ear dysfunction, so will place an ENT consult to rule out Meniere disease. Neuro checks every 4 hours. Continue home medications. Continue medical management per primary team and Neurosurgery, PT/OT/Speech. We will continue to follow. Thank you for the consult. Plan discussed in detail with the patient and also with the nursing staff. Job ID: [id number] MTDD
--- NOTE | 2020-12-03 17:17 | PDOC.HOSPP ---
- Subjective Encounter Date: 12/03/20 Subjective: Continues to report significant positional vertigo. She also continues to report significant pain in her neck. She now tells me that she is having some discomfort in her chest but this occurred after she took some pain medications. - Objective Vital Signs & Weight: Vital Signs (12 hours) Temp Pulse Resp BP BP BP BP 12/03/20 15:51 98.1 F 81 16 103/58 L 12/03/20 15:44 108/65 145/83 H 104/55 L 12/03/20 12:00 98 F 72 18 92/52 L 12/03/20 08:56 77 94/51 L 12/03/20 07:51 97.8 F 76 16 82/51 L Pulse Ox 12/03/20 15:51 98 12/03/20 15:44 12/03/20 12:00 99 12/03/20 08:56 12/03/20 07:51 99 Weight Admit Weight 91 lb 9.6 oz Weight 91 lb 9.6 oz I&O: 12/02/20 12/03/20 12/04/20 06:59 06:59 06:59 Intake Total 342 150 Balance 342 150 Result Diagrams: 12/03/20 04:59 12/03/20 04:59 Hospitalist ROS - Medication Medications: Active Medications Generic Name Dose Route Start Last Admin Trade Name Octavia PRN Reason Stop Dose Admin Acetaminophen 650 mg 12/02/20 18:29 12/02/20 21:52 Acetaminophen 325 Mg Tab PO 650 mg Q4H PRN Administration Headache/Fever/Mild Pain (1-3) Atorvastatin Calcium 40 mg 12/02/20 21:00 12/02/20 21:52 Atorvastatin Calcium 40 Mg Tab PO 40 mg HS DAYSI Administration Flecainide Acetate 50 mg 12/02/20 21:00 12/03/20 09:25 Flecainide 50 Mg Tab PO 50 mg Q12HR DAYSI Administration Folic Acid 1 mg 12/03/20 09:00 12/03/20 09:25 Folic Acid 1 Mg Tab PO 1 mg DAILY DAYSI Administration Hydroxyzine HCl 25 mg 12/02/20 21:00 12/03/20 09:24 Hydroxyzine 25 Mg Tab PO 25 mg BID DAYSI Administration Levetiracetam 1,000 mg 12/02/20 21:00 12/03/20 09:24 Levetiracetam 500 Mg Tab PO 1,000 mg BID DAYSI Administration Meclizine HCl 12.5 mg 12/02/20 21:00 12/03/20 14:07 Meclizine Hcl 12.5 Mg Tab PO 12.5 mg TID DAYSI Administration Metoprolol Tartrate 12.5 mg 12/02/20 21:00 12/03/20 08:05 Metoprolol Tartrate 25 Mg Tab PO Not Given Q12HR DAYSI Oxycodone HCl 10 mg 12/02/20 18:33 12/03/20 14:07 Oxycodone 5 Mg Tab PO 10 mg Q4H PRN Administration Breakthrough Pain Sertraline HCl 200 mg 12/03/20 09:00 12/03/20 09:23 Sertraline Hcl 100 Mg Tab PO 200 mg DAILY DAYSI Administration Sodium Chloride 10 ml 12/02/20 18:29 12/02/20 21:52 Flush - Normal Saline 10 Ml Syringe IVF 10 ml PRN PRN Administration Saline Flush Topiramate 200 mg 12/02/20 21:00 12/03/20 09:23 Topiramate 100 Mg Tab PO 200 mg BID DAYSI Administration Hospitalist Exam Vitals: Vital Signs (12 hours) Temp Pulse Resp BP BP BP BP 12/03/20 15:51 98.1 F 81 16 103/58 L 12/03/20 15:44 108/65 145/83 H 104/55 L 12/03/20 12:00 98 F 72 18 92/52 L 12/03/20 08:56 77 94/51 L 12/03/20 07:51 97.8 F 76 16 82/51 L Pulse Ox 12/03/20 15:51 98 12/03/20 15:44 12/03/20 12:00 99 12/03/20 08:56 12/03/20 07:51 99 Weight Admit Weight 91 lb 9.6 oz Weight 91 lb 9.6 oz General Appearance: NAD, ill appearing (Slightly) ENT: normocephalic atraumatic, no oropharyngeal lesions Neck: supple, symmetric, no JVD, no thyromegaly, no lymphadenopathy, no carotid bruit Heart: RRR, no murmur, no gallops, no rubs Respiratory: CTAB, no wheezes, no rales, no ronchi, normal chest expansion, no t achypnea, normal percussion Gastrointestinal: soft, non-tender, non-distended, normal bowel sounds, no palpable masses, no hepatomegaly, no splenomegaly, no bruit Extremities: no cyanosis, no clubbing, no edema Skin: normal turgor Neurological: no focal deficits Musculoskeletal: normal tone Psychiatric: normal affect, normal behavior Hosp A/P (1) Brain aneurysm Status: Acute (2) Benign paroxysmal positional vertigo Code(s): H81.10 - BENIGN PAROXYSMAL VERTIGO, UNSPECIFIED EAR Status: Acute (3) ALS (amyotrophic lateral sclerosis) Code(s): G12.21 - AMYOTROPHIC LATERAL SCLEROSIS Status: Acute (4) COPD (chronic obstructive pulmonary disease) Status: Acute (5) Lupus Code(s): M32.9 - SYSTEMIC LUPUS ERYTHEMATOSUS, UNSPECIFIED Status: Acute (6) PTSD (post-traumatic stress disorder) Code(s): F43.10 - POST-TRAUMATIC STRESS DISORDER, UNSPECIFIED Status: Acute (7) Seizure disorder Code(s): G40.909 - EPILEPSY, UNSP, NOT INTRACTABLE, WITHOUT STATUS EPILEPTICUS Status: Acute (8) ALS (amyotrophic lateral sclerosis) Code(s): G12.21 - AMYOTROPHIC LATERAL SCLEROSIS Status: Acute - Plan Patient with lupus/ALS, seizure disorder, PTSD, systolic CHF (PM/AICD), COPD presents for headache, neck stiffness and dizziness x2 days. CTA showed 2 to 3 mm left MCA aneurysm. Brain aneurysm Presented for Neck stiffness, H/A, intermittent dizziness with head/eye movement, and tinnitus. MRI brain and echocardiogram. Neurosurgery consulted in the ER. Lumbar puncture recommended to look for xanthochromia. That was performed on 12/03/2020 with negative results. Patient was felt to have very low risk associated with this lesion. Outpatient follow-up with Dr. Sifuentes was recommended. Dizziness Reported present only with head movement or eye movement. CT/CTA no findings other than the left MCA 2 to 3 mm aneurysm. Meclizine as needed. Neurology consult felt this was most consistent with benign paroxysmal positional vertigo. Neurology consulted ENT. Chronic systolic heart failure Chronic, appears stable. Recent ablation (10/31), started on metoprolol and flecainide. Pacemaker (2008) EKG a paced with T inversions V3 through V6, no ST elevation Continue home dose flecainide and metoprolol. Chest pain Patient reports some chest discomfort on the afternoon of 12/03/2020. This was after taking some pills. Sounded much more esophageal in nature. EKG was obtained which did not reveal any significant findings of ischemia. COPD Chronic, appears stable. CXR no acute process. No home medications. History of CVA No residual deficits. Seizure disorder Chronic. Restart home dose Keppra Topamax. PTSD Denies SI/HI. Restart home dose Atarax and sertraline. Lupus Chronic, appears stable. ALS Chronic, appears stable. History of SVT Continue with flecainide, low-dose beta-ginny. SCDs for DVT prophylaxis. No GI prophylaxis. CODE STATUS full code.
[2020-12-03 18:18] LABS: Color Of CSF Supernatant COLORLESS (Colorless); Tube # 1; Unspun CSF Color COLORLESS (Colorless)
[2020-12-03] MEDS: Atorvastatin Calcium 40 MG TAB PO SCH (20:54)
--- NOTE | 2020-12-03 22:19 | EKG ---
Test Reason : C/O CHEST PAIN Blood Pressure : / mmHG Vent. Rate : 072 BPM Atrial Rate : 072 BPM P-R Int : 124 ms QRS Dur : 090 ms QT Int : 424 ms P-R-T Axes : 077 055 059 degrees QTc Int : 464 ms Electronic atrial pacemaker Nonspecific T wave abnormality Prolonged QT Abnormal ECG When compared with ECG of 02-DEC-2020 14:45, (Unconfirmed) RSR' pattern in V1 is no longer Present Confirmed by Stanley CORONA ([id number]) on 12/03/2020 10:19:25 PM Referred By: STEVEN Confirmed By:Stanley CORONA
[2020-12-04] MEDS ORDERED: Sodium Chloride 0.9% 500 ML IV SCH (07:45)
[2020-12-04] MEDS: hydrOXYzine 25 MG TAB PO SCH ×2 (08:47→20:38)
[2020-12-04] MEDS: Meclizine HCl 12.5 MG TAB PO SCH ×3 (08:47→20:38)
[2020-12-04] MEDS: Folic Acid 1 MG TAB PO SCH (08:47)
[2020-12-04] MEDS: Flecainide 50 MG TAB PO SCH ×2 (08:47→20:38)
[2020-12-04] MEDS: levETIRAcetam 500 MG TAB PO SCH ×2 (08:47→20:38)
[2020-12-04] MEDS: Topiramate 100 MG TAB PO SCH ×2 (08:47→20:37)
[2020-12-04] MEDS: Metoprolol Tartrate 25 MG TAB PO SCH ×2 (08:47→20:41)
[2020-12-04] MEDS: diphenhydrAMINE 50 MG/ML VIAL IVP SCH ×2 (11:55→18:00)
[2020-12-04] MEDS: Prochlorperazine 10 MG/2 ML VIAL IVP SCH ×2 (11:55→18:00)
--- NOTE | 2020-12-04 12:21 | PDOC.NEUPN ---
- Subjective Encounter Date: 12/04/20 Subjective: Mrs. Pro was working with physical therapy during the rounds. She does complain of severe spinal headache but her dizziness and vertigo is resolved at this point. - Objective Vital Signs & Weight: Vital Signs (12 hours) Temp Pulse Pulse Resp BP BP BP 12/04/20 11:30 97.9 F 69 16 93/55 L 12/04/20 10:29 76 100/51 L 104/58 L 12/04/20 08:00 98.2 F 71 16 12/04/20 04:05 97.7 F 74 14 12/04/20 01:16 90/52 L BP BP Pulse Ox 12/04/20 11:30 99 12/04/20 10:29 12/04/20 08:00 87/47 L 99 12/04/20 04:05 92/49 L 96 12/04/20 01:16 Weight Admit Weight 91 lb 9.6 oz Weight 91 lb 9.6 oz I&O: 12/03/20 12/04/20 12/05/20 06:59 06:59 06:59 Intake Total 342 150 150 Balance 342 150 150 Result Diagrams: 12/03/20 04:59 12/03/20 04:59 Radiology Reviewed by me: Yes EKG Reviewed by me: Yes ROS - Review of Systems Constitutional: denies: fever, chills, sweats, weakness, malaise, other Eyes: denies: pain, vision change, conjunctivae inflammation, eyelid inflammation, redness, other ENT: reports: other (Neck pain). denies: ear pain, ear discharge, nose pain, nose discharge, nose congestion, mouth pain, mouth swelling, throat pain, throat swelling Respiratory: denies: cough, dry, shortness of breath, hemoptysis, SOB with excertion, pleuritic pain, sputum, wheezing, other Genitourinary: denies: dysuria, frequency, incontinence, hematuria, retention, other Musculoskeletal: reports: neck pain Skin: denies: rash, lesions, jose, bruising, other Neurological: denies: weakness, numbness, incoordination, change in speech, confusion, seizures, other - Medication Medications: Active Medications Generic Name Dose Route Start Last Admin Trade Name Freq PRN Reason Stop Dose Admin Acetaminophen 650 mg 12/02/20 18:29 12/02/20 21:52 Acetaminophen 325 Mg Tab PO 650 mg Q4H PRN Administration Headache/Fever/Mild Pain (1-3) Atorvastatin Calcium 40 mg 12/02/20 21:00 12/03/20 20:54 Atorvastatin Calcium 40 Mg Tab PO 40 mg HS DAYSI Administration Diphenhydramine HCl 25 mg 12/04/20 12:00 12/04/20 11:55 Diphenhydramine 50 Mg/Ml Vial IVP 12/05/20 06:01 25 mg Q6HR DAYSI Administration Flecainide Acetate 50 mg 12/02/20 21:00 12/04/20 08:47 Flecainide 50 Mg Tab PO 50 mg Q12HR DAYSI Administration Folic Acid 1 mg 12/03/20 09:00 12/04/20 08:47 Folic Acid 1 Mg Tab PO 1 mg DAILY DAYSI Administration Hydroxyzine HCl 25 mg 12/02/20 21:00 12/04/20 08:47 Hydroxyzine 25 Mg Tab PO 25 mg BID DAYSI Administration Levetiracetam 1,000 mg 12/02/20 21:00 12/04/20 08:47 Levetiracetam 500 Mg Tab PO 1,000 mg BID DAYSI Administration Meclizine HCl 12.5 mg 12/02/20 21:00 12/04/20 08:47 Meclizine Hcl 12.5 Mg Tab PO 12.5 mg TID DAYSI Administration Metoprolol Tartrate 12.5 mg 12/02/20 21:00 12/04/20 08:47 Metoprolol Tartrate 25 Mg Tab PO Not Given Q12HR DAYSI Oxycodone HCl 10 mg 12/02/20 18:33 12/03/20 21:05 Oxycodone 5 Mg Tab PO 10 mg Q4H PRN Administration Breakthrough Pain Prochlorperazine Edisylate 10 mg 12/04/20 12:00 12/04/20 11:55 Prochlorperazine 10 Mg/2 Ml Vial IVP 12/05/20 06:01 10 mg Q6HR DAYSI Administration Sertraline HCl 200 mg 12/03/20 09:00 12/04/20 08:47 Sertraline Hcl 100 Mg Tab PO 200 mg DAILY DAYSI Administration Sodium Chloride 10 ml 12/02/20 18:29 12/03/20 20:54 Flush - Normal Saline 10 Ml Syringe IVF 10 ml PRN PRN Administration Saline Flush Topiramate 200 mg 12/02/20 21:00 12/04/20 08:47 Topiramate 100 Mg Tab PO 200 mg BID DAYSI Administration - Exam General Appearance: awake alert Eye: PERRL ENT: normocephalic atraumatic Neck: supple Respiratory: CTAB Cardiovascular: RRR Gastrointestinal: soft Extremities: no cyanosis Skin: normal turgor Neurological: no new deficit Musculoskeletal: normal tone, normal strength, no muscle wasting PSYCH: normal affect, normal behavior, A&O x 3 Results - Labs Result Diagrams: 12/03/20 04:59 12/03/20 04:59 Lab results: WBC 3.8 thou/uL (4.8-10.8) L 12/03/20 04:59 Hgb 10.7 g/dL (12.0-16.0) L 12/03/20 04:59 Hct 31.8 % (36.0-47.0) L 12/03/20 04:59 MCV 89.3 fL (78.0-98.0) 12/03/20 04:59 Plt Count 204 thou/uL (130-400) 12/03/20 04:59 Neutrophils % 53.9 % (42.0-75.0) 12/03/20 04:59 ESR Westergren Less than 1 mm/hr (Less than 20) 12/03/20 04:59 Sodium 141 mmol/L (136-145) 12/03/20 04:59 Potassium 3.3 mmol/L (3.5-5.1) L 12/03/20 04:59 Chloride 116 mmol/L (98-107) H 12/03/20 04:59 Carbon Dioxide 20 mmol/L (22-29) L 12/03/20 04:59 BUN 5 mg/dL (7.0-18.7) L 12/03/20 04:59 Creatinine 0.75 mg/dL (0.6-1.1) 12/03/20 04:59 Glucose 85 mg/dL (70-105) 12/03/20 04:59 Calcium 7.7 mg/dL (7.8-10.44) L 12/03/20 04:59 Total Bilirubin 0.3 mg/dL (0.2-1.2) 12/02/20 16:56 AST 14 U/L (5-34) 12/02/20 16:56 ALT Less than 7 U/L (8-55) L 12/02/20 16:56 Alkaline Phosphatase 67 U/L (40-110) 12/02/20 16:56 Troponin I Less than 0.010 ng/mL (< 0.028) 12/02/20 21:48 C-Reactive Protein Less than 0.50 mg/dL (= or < 0.5) 12/03/20 04:59 Serum Total Protein 6.1 g/dL (6.0-8.3) 12/02/20 16:56 Albumin 3.6 g/dL (3.5-5.0) 12/02/20 16:56 - Radiology Interpretation MRI - head Additional Comment: MRI of the brain did not reveal any acute intracranial pathology. PN A/P (1) Spinal headache Code(s): G97.1 - OTHER REACTION TO SPINAL AND LUMBAR PUNCTURE Status: Acute (2) ALS (amyotrophic lateral sclerosis) Code(s): G12.21 - AMYOTROPHIC LATERAL SCLEROSIS Status: Acute (3) Benign paroxysmal positional vertigo Code(s): H81.10 - BENIGN PAROXYSMAL VERTIGO, UNSPECIFIED EAR Status: Acute (4) Brain aneurysm Status: Acute (5) COPD (chronic obstructive pulmonary disease) Status: Acute (6) Chronic systolic heart failure Code(s): I50.22 - CHRONIC SYSTOLIC (CONGESTIVE) HEART FAILURE Status: Acute (7) Dizziness Code(s): R42 - DIZZINESS AND GIDDINESS Status: Acute (8) Lupus Code(s): M32.9 - SYSTEMIC LUPUS ERYTHEMATOSUS, UNSPECIFIED Status: Acute - Plan Daily Plan: PT/OT, speech therapy Mrs. Pro is a 44-year-old female with history significant for ALS, lupus, COPD who presented with vertigowhich increased with position and also headache. She had an extensive work-up and was seen by neurosurgery since CTA showed aneurysms and there was a concern about subarachnoid hemorrhage. Patient cannot have MRI brain . Consider repeat head CT 48 hours after symptom onset today to rule out acute intracranial process. LP was completed yesterday which was negative. Neurosurgery signed off and patient will be followed as outpatient for a formal cerebral angiogram for further evaluation. No surgical intervention is needed at this point. Neurochecks every 4 hours. 2D echocardiogram showed ejection fraction 55 to 60%. No thrombus or PFO ENT consult pending. However, her vertigo has been resolved so she can follow- up with ENT as outpatient. Continue home medications. She is not complaining of spinal headache s/p lumbar puncture. Consider scheduled doses of Benadryl and Compazine for 24 hours. Benadryl 25 mg IV every 6 hours x4 doses Compazine 10 mg IV every 6 hours x4 doses. Ordered Continue medical management per primary team. PT/OT/speech. Plan discussed in detail with the patient and also with the primary attending Dr. Wilson.
[2020-12-04 12:27] LABS: Bacteria/HPF None Seen HPF (None Seen); Bilirubin Negative (Negative); Blood, Urine Negative (Negative); Clarity Clear (Clear); Glucose, Urine (Dipstick) Normal (Negative); Ketone, Urine Negative (Negative); Leukocyte Negative Leu/uL (Negative); Nitrite Negative (Negative); Protein, Urine (Dipstick) Negative (Neg-Trace); RBC/HPF 0-3 HPF (0-3); Specific Gravity, Urine 1.007 (1.002-1.036); Squamous Epithelial 0-3 HPF (0-3); Urobilinogen Normal mg/dL (Less than 2); WBC/HPF 0-3 HPF (0-3)
--- NOTE | 2020-12-04 13:03 | CT ---
Exam: Head CT without contrast HISTORY: Headache.. Is limited for possible CVA. COMPARISON: 12/02/2020 FINDINGS: Hemorrhage: No intraparenchymal hemorrhage or extra-axial hematoma. Brain parenchyma: Cortical lo-white matter differentiation is preserved. No mass effect or midline shift. Basilar cisterns are patent. Ventricular system: Ventricles and sulci are patent and symmetric. Calvarium: Intact. Sinuses and mastoid air cells: Adequate aeration. IMPRESSION: No acute intracranial process. Further evaluation with pre and postcontrast brain MRI if clinically warranted
[2020-12-04] MEDS ORDERED: Fioricet 325/50/40 mg Tablet PO PRN ×2 (14:18)
[2020-12-04] MEDS: oxyCODONE 5 MG TAB PO PRN (14:21)
--- NOTE | 2020-12-04 14:21 | PDOC.HOSPP ---
- Subjective Encounter Date: 12/04/20 Subjective: Patient reports her vertigo has abated. Now she reports a fairly severe headache that is much worse when she attempts to sit up or stand up. - Objective Vital Signs & Weight: Vital Signs (12 hours) Temp Pulse Pulse Resp BP BP BP 12/04/20 11:30 97.9 F 69 16 93/55 L 12/04/20 10:29 76 100/51 L 104/58 L 12/04/20 08:00 98.2 F 71 16 12/04/20 04:05 97.7 F 74 14 BP BP Pulse Ox 12/04/20 11:30 99 12/04/20 10:29 12/04/20 08:00 87/47 L 99 12/04/20 04:05 92/49 L 96 Weight Admit Weight 91 lb 9.6 oz Weight 91 lb 9.6 oz I&O: 12/03/20 12/04/20 12/05/20 06:59 06:59 06:59 Intake Total 342 150 150 Balance 342 150 150 Result Diagrams: 12/03/20 04:59 12/03/20 04:59 Hospitalist ROS - Medication Medications: Active Medications Generic Name Dose Route Start Last Admin Trade Name Freq PRN Reason Stop Dose Admin Acetaminophen 650 mg 12/02/20 18:29 12/02/20 21:52 Acetaminophen 325 Mg Tab PO 650 mg Q4H PRN Administration Headache/Fever/Mild Pain (1-3) Atorvastatin Calcium 40 mg 12/02/20 21:00 12/03/20 20:54 Atorvastatin Calcium 40 Mg Tab PO 40 mg HS DAYSI Administration Diphenhydramine HCl 25 mg 12/04/20 12:00 12/04/20 11:55 Diphenhydramine 50 Mg/Ml Vial IVP 12/05/20 06:01 25 mg Q6HR DAYSI Administration Flecainide Acetate 50 mg 12/02/20 21:00 12/04/20 08:47 Flecainide 50 Mg Tab PO 50 mg Q12HR DAYSI Administration Folic Acid 1 mg 12/03/20 09:00 12/04/20 08:47 Folic Acid 1 Mg Tab PO 1 mg DAILY DAYSI Administration Hydroxyzine HCl 25 mg 12/02/20 21:00 12/04/20 08:47 Hydroxyzine 25 Mg Tab PO 25 mg BID DAYSI Administration Levetiracetam 1,000 mg 12/02/20 21:00 12/04/20 08:47 Levetiracetam 500 Mg Tab PO 1,000 mg BID DAYSI Administration Meclizine HCl 12.5 mg 12/02/20 21:00 12/04/20 08:47 Meclizine Hcl 12.5 Mg Tab PO 12.5 mg TID DAYSI Administration Metoprolol Tartrate 12.5 mg 12/02/20 21:00 12/04/20 08:47 Metoprolol Tartrate 25 Mg Tab PO Not Given Q12HR DAYSI Oxycodone HCl 10 mg 12/02/20 18:33 12/03/20 21:05 Oxycodone 5 Mg Tab PO 10 mg Q4H PRN Administration Breakthrough Pain Prochlorperazine Edisylate 10 mg 12/04/20 12:00 12/04/20 11:55 Prochlorperazine 10 Mg/2 Ml Vial IVP 12/05/20 06:01 10 mg Q6HR DAYSI Administration Sertraline HCl 200 mg 12/03/20 09:00 12/04/20 08:47 Sertraline Hcl 100 Mg Tab PO 200 mg DAILY DAYSI Administration Sodium Chloride 10 ml 12/02/20 18:29 12/03/20 20:54 Flush - Normal Saline 10 Ml Syringe IVF 10 ml PRN PRN Administration Saline Flush Topiramate 200 mg 12/02/20 21:00 12/04/20 08:47 Topiramate 100 Mg Tab PO 200 mg BID DAYSI Administration Hospitalist Exam Vitals: Vital Signs (12 hours) Temp Pulse Pulse Resp BP BP BP 12/04/20 11:30 97.9 F 69 16 93/55 L 12/04/20 10:29 76 100/51 L 104/58 L 12/04/20 08:00 98.2 F 71 16 12/04/20 04:05 97.7 F 74 14 BP BP Pulse Ox 12/04/20 11:30 99 12/04/20 10:29 12/04/20 08:00 87/47 L 99 12/04/20 04:05 92/49 L 96 Weight Admit Weight 91 lb 9.6 oz Weight 91 lb 9.6 oz General Appearance: NAD, awake alert, ill appearing Neck: supple, symmetric, no JVD, no thyromegaly, no lymphadenopathy, no carotid bruit Heart: RRR, no murmur, no gallops, no rubs, normal peripheral pulses Respiratory: CTAB, no wheezes, no rales, no ronchi, normal chest expansion, no tachypnea, normal percussion Gastrointestinal: soft, non-tender, non-distended, normal bowel sounds, no palpable masses, no hepatomegaly, no splenomegaly, no bruit Extremities: no cyanosis, no clubbing, no edema Skin: normal turgor, no lesions, no rashes Musculoskeletal: normal tone Psychiatric: normal affect, normal behavior, A&O x 3 Hosp A/P (1) Brain aneurysm Status: Acute (2) Benign paroxysmal positional vertigo Code(s): H81.10 - BENIGN PAROXYSMAL VERTIGO, UNSPECIFIED EAR Status: Acute (3) ALS (amyotrophic lateral sclerosis) Code(s): G12.21 - AMYOTROPHIC LATERAL SCLEROSIS Status: Acute (4) COPD (chronic obstructive pulmonary disease) Status: Acute (5) Lupus Code(s): M32.9 - SYSTEMIC LUPUS ERYTHEMATOSUS, UNSPECIFIED Status: Acute (6) PTSD (post-traumatic stress disorder) Code(s): F43.10 - POST-TRAUMATIC STRESS DISORDER, UNSPECIFIED Status: Acute (7) Seizure disorder Code(s): G40.909 - EPILEPSY, UNSP, NOT INTRACTABLE, WITHOUT STATUS EPILEPTICUS Status: Acute (8) ALS (amyotrophic lateral sclerosis) Code(s): G12.21 - AMYOTROPHIC LATERAL SCLEROSIS Status: Acute - Plan Patient with lupus/ALS, seizure disorder, PTSD, systolic CHF (PM/AICD), COPD presents for headache, neck stiffness and dizziness x2 days. CTA showed 2 to 3 mm left MCA aneurysm. Brain aneurysm Presented for Neck stiffness, H/A, intermittent dizziness with head/eye movement, and tinnitus. MRI brain and echocardiogram. Neurosurgery consulted in the ER. Lumbar puncture recommended to look for xanthochromia. That was performed on 12/03/2020 with negative results. Patient was felt to have very low risk associated with this lesion. Outpatient follow-up with Dr. Sifuentes was recommended. Dizziness Reported present only with head movement or eye movement. CT/CTA no findings other than the left MCA 2 to 3 mm aneurysm. Meclizine as needed. Neurology consult felt this was most consistent with benign paroxysmal p ositional vertigo. Neurology consulted ENT. Symptoms resolved by 12/04/2020. Spinal headache Patient has a fairly severe debilitating headache following her lumbar puncture. We will add butalbital. IV fluids. Chronic systolic heart failure Chronic, appears stable. Recent ablation (10/31), started on metoprolol and flecainide. Pacemaker (2008) EKG a paced with T inversions V3 through V6, no ST elevation Continue home dose flecainide and metoprolol. Chest pain Patient reports some chest discomfort on the afternoon of 12/03/2020. This was after taking some pills. Sounded much more esophageal in nature. EKG was obtained which did not reveal any significant findings of ischemia. COPD Chronic, appears stable. CXR no acute process. No home medications. History of CVA No residual deficits. Seizure disorder Chronic. Restart home dose Keppra Topamax. PTSD Denies SI/HI. Restart home dose Atarax and sertraline. Lupus Chronic, appears stable. ALS Chronic, appears stable. History of SVT Continue with flecainide, low-dose beta-ginny. SCDs for DVT prophylaxis. No GI prophylaxis. CODE STATUS full code.
[2020-12-04] MEDS: Atorvastatin Calcium 40 MG TAB PO SCH (20:38)
[2020-12-04 23:23] LABS: #Eosinphils 0.1 thou/uL (0.0-0.7); #Monocytes 0.5 thou/uL (0.11-0.59); #Neutrophils 1.6 thou/uL (1.40-6.50); %Basophils 1.1 % (0.0-1.0); %Eosinophils 3.2 % (0.0-10.0); %Lymphocytes 31.6 % (21.0-51.0); %Monocytes 14.5 % (0.0-10.0); %Neutrophils 49.7 % (42.0-75.0); Hemoglobin 11.4 g/dL (12.0-16.0); Mean Corpuscular HGB CONC 33.4 g/dL (32.0-36.0); Mean Corpuscular Volume 89.7 fL (78.0-98.0); Mean Platelet Volume 8.7 fL (7.4-10.4); Platelet Count 222 thou/uL (130-400); RBC Distribution Width 11.2 % (11.5-14.5); White Blood Cell (WBC) Count 3.3 thou/uL (4.8-10.8)
[2020-12-04 23:55] LABS: Lactic Acid 0.5 mmol/L (0.5-2.2)
[2020-12-04 23:59] LABS: ALT (SGPT) Less than 7 U/L (8-55); AST (SGOT) 12 U/L (5-34); Albumin 3.5 g/dL (3.5-5.0); Alkaline Phosphatase 65 U/L (40-110); Anion Gap 8 mmol/L (10-20); BUN (Urea Nitrogen) 7 mg/dL (7.0-18.7); Bilirubin, Direct 0.1 mg/dL (0.1-0.3); Bilirubin, Total 0.2 mg/dL (0.2-1.2); Calc. Creatinine Clearance 60 mL/min (70-130); Calcium 7.9 mg/dL (7.8-10.44); Carbon Dioxide 24 mmol/L (22-29); Chloride 114 mmol/L (98-107); Globulin 2.2 g/dL (2.4-3.5); Glucose 90 mg/dL (70-105); Lipase 29 U/L (8-78); Magnesium 1.9 mg/dL (1.6-2.6); Potassium 3.6 mmol/L (3.5-5.1); Protein, Total 5.7 g/dL (6.0-8.3); Sodium 142 mmol/L (136-145)
[2020-12-05] MEDS: diphenhydrAMINE 50 MG/ML VIAL IVP SCH ×3 (00:12→05:15)
[2020-12-05] MEDS: Prochlorperazine 10 MG/2 ML VIAL IVP SCH ×3 (00:12→05:16)
[2020-12-05 07:47] VITALS: BP 95/57; TEMP 98.1
[2020-12-05] MEDS: levETIRAcetam 500 MG TAB PO SCH (09:11)
[2020-12-05] MEDS: Acetaminophen 325 MG TAB PO PRN (09:11)
[2020-12-05] MEDS: Flecainide 50 MG TAB PO SCH (09:12)
[2020-12-05] MEDS: Meclizine HCl 12.5 MG TAB PO SCH (09:12)
[2020-12-05] MEDS: Topiramate 100 MG TAB PO SCH (09:12)
[2020-12-05] MEDS: Folic Acid 1 MG TAB PO SCH (09:13)
[2020-12-05] MEDS: Metoprolol Tartrate 25 MG TAB PO SCH (09:13)
[2020-12-05] MEDS: hydrOXYzine 25 MG TAB PO SCH (09:13)
--- NOTE | 2020-12-05 13:36 | PDOC.NEUPN ---
- Subjective Encounter Date: 12/05/20 Subjective: Ms. Jayashree Pro is a 44-year-old female who presented with dizziness. Dizziness resolved and also headache improved after the migraine cocktail minus Toradol. - Objective Vital Signs & Weight: Vital Signs (12 hours) Temp Pulse Resp BP BP Pulse Ox 12/05/20 07:46 98.1 F 84 16 95/57 L 99 12/05/20 04:06 97.8 F 71 14 114/63 94 L Weight Admit Weight 91 lb 9.6 oz Weight 91 lb 9.6 oz I&O: 12/04/20 12/05/20 12/06/20 06:59 06:59 06:59 Intake Total 150 150 Balance 150 150 Result Diagrams: 12/04/20 23:08 12/04/20 23:08 Radiology Reviewed by me: Yes EKG Reviewed by me: Yes ROS - Review of Systems Constitutional: denies: fever, chills, sweats, weakness, malaise, other ENT: denies: ear pain, ear discharge, nose pain, nose discharge, nose congestion, mouth pain, mouth swelling, throat pain, throat swelling, other Respiratory: denies: cough, dry, shortness of breath, hemoptysis, SOB with excertion, pleuritic pain, sputum, wheezing, other Cardiovascular: denies: no pertinent history, AFIB, CAD, CHF, HTN, IA, Syncope, Hyperlipidemia, Mitral valve stenosis, Aortic stenosis, Valve insufficiency, Pulmonary hypertension, Other Gastrointestinal: denies: nausea, vomiting, abdominal pain, diarrhea, constip ation, melena, hematochezia, other Genitourinary: denies: dysuria, frequency, incontinence, hematuria, retention, other Skin: denies: rash, lesions, jose, bruising, other - Exam General Appearance: awake alert Eye: PERRL ENT: normocephalic atraumatic Neck: supple Respiratory: CTAB Cardiovascular: RRR Gastrointestinal: soft Extremities: no cyanosis Skin: normal turgor Neurological: no focal deficits, no new deficit Musculoskeletal: normal tone, normal strength, no muscle wasting PSYCH: normal affect, normal behavior, A&O x 3, oriented to person, oriented to place, oriented to time Results - Labs Result Diagrams: 12/04/20 23:08 12/04/20 23:08 Lab results: WBC 3.3 thou/uL (4.8-10.8) L 12/04/20 23:08 Hgb 11.4 g/dL (12.0-16.0) L 12/04/20 23:08 Hct 34.1 % (36.0-47.0) L 12/04/20 23:08 MCV 89.7 fL (78.0-98.0) 12/04/20 23:08 Plt Count 222 thou/uL (130-400) 12/04/20 23:08 Neutrophils % 49.7 % (42.0-75.0) 12/04/20 23:08 ESR Westergren Less than 1 mm/hr (Less than 20) 12/03/20 04:59 Sodium 142 mmol/L (136-145) 12/04/20 23:08 Potassium 3.6 mmol/L (3.5-5.1) 12/04/20 23:08 Chloride 114 mmol/L (98-107) H 12/04/20 23:08 Carbon Dioxide 24 mmol/L (22-29) 12/04/20 23:08 BUN 7 mg/dL (7.0-18.7) 12/04/20 23:08 Creatinine 0.79 mg/dL (0.6-1.1) 12/04/20 23:08 Glucose 90 mg/dL (70-105) 12/04/20 23:08 Lactic Acid 0.5 mmol/L (0.5-2.2) 12/04/20 23:08 Calcium 7.9 mg/dL (7.8-10.44) 12/04/20 23:08 Total Bilirubin 0.2 mg/dL (0.2-1.2) 12/04/20 23:08 AST 12 U/L (5-34) 12/04/20 23:08 ALT Less than 7 U/L (8-55) L 12/04/20 23:08 Alkaline Phosphatase 65 U/L (40-110) 12/04/20 23:08 Troponin I Less than 0.010 ng/mL (< 0.028) 12/02/20 21:48 C-Reactive Protein Less than 0.50 mg/dL (= or < 0.5) 12/03/20 04:59 B-Natriuretic Peptide 42.4 pg/mL (0-100) 12/04/20 23:08 Serum Total Protein 5.7 g/dL (6.0-8.3) L 12/04/20 23:08 Albumin 3.5 g/dL (3.5-5.0) 12/04/20 23:08 Lipase 29 U/L (8-78) 12/04/20 23:08 Urine Ketones Negative mg/dL (Negative) 12/03/20 12:10 Urine Blood Negative (Negative) 12/03/20 12:10 Urine Nitrite Negative (Negative) 12/03/20 12:10 Ur Leukocyte Esterase Negative Chicho/uL (Negative) 12/03/20 12:10 Urine RBC 0-3 HPF (0-3) 12/03/20 12:10 Urine WBC 0-3 HPF (0-3) 12/03/20 12:10 Ur Squamous Epith Cells 0-3 HPF (0-3) 12/03/20 12:10 Urine Bacteria None Seen HPF (None Seen) 12/03/20 12:10 - Radiology Interpretation CT scan - head Additional Comment: MRI of the head was negative for acute intracranial pathology PN A/P (1) Spinal headache Code(s): G97.1 - OTHER REACTION TO SPINAL AND LUMBAR PUNCTURE Status: Acute (2) ALS (amyotrophic lateral sclerosis) Code(s): G12.21 - AMYOTROPHIC LATERAL SCLEROSIS Status: Acute (3) Benign paroxysmal positional vertigo Code(s): H81.10 - BENIGN PAROXYSMAL VERTIGO, UNSPECIFIED EAR Status: Acute (4) Brain aneurysm Status: Acute (5) COPD (chronic obstructive pulmonary disease) Status: Acute (6) Chronic systolic heart failure Code(s): I50.22 - CHRONIC SYSTOLIC (CONGESTIVE) HEART FAILURE Status: Acute (7) Dizziness Code(s): R42 - DIZZINESS AND GIDDINESS Status: Acute (8) Lupus Code(s): M32.9 - SYSTEMIC LUPUS ERYTHEMATOSUS, UNSPECIFIED Status: Acute - Plan Daily Plan: PT/OT Mrs. Pro is a 44-year-old female with history significant for ALS, lupus, COPD who presented with vertigowhich increased with position and also headache. She had an extensive work-up and was seen by neurosurgery since CTA showed aneurysms and there was a concern about subarachnoid hemorrhage. Patient doing much better today and her dizziness is resolved and headache is much improved after resuming scheduled doses of Benadryl and Compazine. She is able to ambulate on her own with no issues head CT repeated yesterday 48 hours for symptom onset which was negative for acute intracranial process since patient cannot have MRI. LP was which was negative for subarachnoid hemorrhage. Neurosurgery signed off and patient will be followed as outpatient for a formal cerebral angiogram for further evaluation. No surgical intervention is needed at this point. Neurochecks every 4 hours. 2D echocardiogram showed ejection fraction 55 to 60%. No thrombus or PFO Patient advised to follow-up with ENT as outpatient Continue home medications. Continue medical management per primary team. PT/OT/speech. Plan discussed in detail with the patient and also with the primary attending Dr. Wilson.
--- NOTE | 2020-12-06 20:26 | PQF ---
CLINICAL DOCUMENTATION CLARIFICATION FORM: Dear DrTwyla: Godwin Wilson Date / Time: 12/06/20 20:26 Please exercise your independent, professional judgment in responding to the clarification form. Clinical indicators are provided on the bottom of this form for your review Can you please further clarify the nutritional status of the patient? Please check appropriate box(es): [ x ] Protein Calorie Malnutrition: [ ] Mild [ x ] Moderate [ ] Severe [ ] Other Malnutrition (please specify) [ ] Underweight without malnutrition [ ] Cachexia [ ] Other diagnosis, please specify [ ] Unable to determine Physician Signature: Date/Time: For continuity of documentation, please document condition throughout progress notes and discharge summary. Thank You. To be completed by CDI/Coding staff for physician review: Present Clinical Indicators - Signs / Symptoms / Labs Results and Location in Medical Record [X] Cachexia HP 12/02 [X] Albumin: 12/02=3.6 12/04=3.5 Laboratory 12/02 [X] Total protein: 12/02=6.1 12/04=5.7 Laboratory 12/02 [X] BMI [address] 12/03 Two or More of the Following ASPEN Criteria: [X] 12% wt loss in a month Consult RD 12/03 [X] suggestive of severe malnutrition in the context of chronic illness Consult RD 12/03 Present Risk Factors Results and Location in Medical Record [X] SLE HP 12/02 [X] ALS HP 12/02 [X] Seizure Disorder HP 12/02 [X] Smoker HP 12/02 Present Treatments Results and Location in Medical Record [X] Dietitian Consult Consult RD 12/03 [X] Monitor weight change Consult RD 12/03 [X] Monitor total protein intake Consult RD 12/03 [X] Recommend Ensure Enlive TID Consult RD 12/03 [facility] Operator Signature:Ema Mclaughlin Phone #: ext [phone] Date/Time: 12/06/20 Moderate Malnutrition (in acute illness) ? Energy Intake: <75% of estimated energy requirement for > 7 days ? Weight Loss: 1-2%/1 week; 5%/ 1 month; 7.5%/3 months ? Other: mild body fat loss; mild muscle mass loss; mild fluid accumulation; Severe Malnutrition (in acute illness) ? Energy Intake: ? 50% of estimated energy requirement for ? 5 days ? Weight Loss: >2%/1 week; >5%/1 month; >7.5%/3 months ? 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 Energy Intake: <75% of estimated energy requirement for ?1 month ? Weight Loss: 5%/1 month; 7.5%/3 months; 10%/6 months; 20%/1 year ? Other: mild body fat loss; mild muscle mass loss; mild fluid accumulation Severe Malnutrition (in chronic illness) ? Energy Intake: ?75% of estimated energy requirement for ?1 month ? Weight Loss: >5%/1 month; >7.5%/3 months; >10%/6 months; >20%/1 year ? 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
--- NOTE | 2020-12-06 20:28 | PQF ---
CLINICAL DOCUMENTATION CLARIFICATION FORM: Dear DrTwyla:Godwin Wilson Date / Time: 12/06/20 20:28 Please exercise your independent, professional judgment in responding to the clarification form. Clinical indicators are provided on the bottom of this form for your review Please check appropriate box(es): [ ] Aspiration Pneumonia [ ] Empirically treating Gram Negative Pneumonia [ ] Empirically treating Anaerobic Pneumonia [ ] Pneumonia secondary to (specify organism / underlying disease) [ ] Simple Pneumonia [ ] Pneumonia of unknown etiology [ x ] No Pneumonia [ ] Other diagnosis, please specify [ ] Unable to determine Physician Signature: Date/Time: For continuity of documentation, please document condition throughout progress notes and discharge summary. Thank You. To be completed by CDI/Coding staff for physician review: Present Clinical Indicators - Signs / Symptoms / Labs Results and Location in Medical Record [x] Pneumonia ED Notes 12/02 [x] Chest Xray: hyperinflation without mass or consolidation Chest Xray 12/02 [x] presented for dizziness, ataxia, NOONAN and neck pain Consult 12/03 [x] no wheezes no tachypnea PN 12/04 [x] WBC: 12/02=6.2 12/03=3.8 12/04=3.3 Laboratory 12/02 Present Risk Factors Results and Location in Medical Record [X] SLE HP 12/02 [X] ALS HP 12/02 [X] Seizure Disorder HP 12/02 [X] Cachexia HP 12/02 [X] COPD HP 12/02 [X] CHF HP 12/02 Present Treatments Results and Location in Medical Record [x] Rocephin 1gm IV DEC 10 [x] Levaquin 500mg Oral DEC 10 [x] IVF DEC 10 CDS/Sales Director Signature:Ema [place] Mclaughlin Phone #: ext [phone] Date/Time: 12/06/20 This is a permanent part of the Medical Record [facility]
--- NOTE | 2020-12-10 09:00 | CT ---
EXAM: CT angiogram head and neck with IV contrast and 3-D reconstructions PROVIDED CLINICAL HISTORY: Neck pain and dizziness. COMPARISON: Noncontrast CT head on 12/02/2020 FINDINGS: Left subclavian cardiac pacemaking device is visualized. This does result in artifact through the asc ending thoracic aorta and origins of the great vessels which limits evaluation. However, there does appear to be a normal arrangement of the great vessels at the aortic arch which are patent. Portion r ight subclavian artery is obscured due to dense contrast in adjacent veins. The innominate artery and left subclavian arteries are patent. The bilateral common carotid arteries are patent. Artifact from postoperative changes related to anterior cervical fusion of the cervical spine limits evaluation of the internal carotid arteries; however, the bilateral internal carotid arteries otherwise appear patent. Left vertebral artery is small in size and likely terminates in PICA. Right vertebral artery is dominant and patent. The basilar artery is very small in size. type origins of the bilateral posterior cerebral fabio iker are present which are patent Bilateral middle cerebral and anterior cerebral arteries are patent. No focal stenosis or branch occl usion is seen. There is a small outpouching which is located in the region of the left MCA trifurcation likely involving an M2 branch of the left middle cerebral artery measuring 2 to 3 mm. Th is is suggestive of a very small aneurysm. No additional intracranial aneurysm is appreciated. No intracranial aneurysm is visualized on this exam. There is biapical pleural and parenchymal scarring. There are several nodular densities seen within t he right upper lobe which could be related to infectious or inflammatory process, but follow-up evaluation is recommended to ensure resolution of these nodular densities. Calcified granuloma is see n in the medial right upper lobe. Subcentimeter cavitary lesion is seen in the posterolateral medial right upper lobe. IMPRESSION: 1. Suggestion of a small 2 to 3 mm aneurysm involving the left MCA trifurcation and likely involving an M2 branch of the left middle cerebral artery. This is difficult to definitely delineate on this examination, and neurosurgical consultation with follow-up conventional angiogram is suggested. 2. No focal stenosis or branch occlusion is seen involving the agdaagux of Mayer or vertebrobasilar sy stem. 3. Several subcentimeter nodular densities, some of which are irregular in shape, are seen within the right lung apex. This could be related to infectious or inflammatory process. Follow-up evaluation is recommended to ensure resolution. 4. Above findings discussed with STEPHANIE Abrams in the emergency department on 12/02/2020 at 1619 hours. Transcribed Date/Time: 12/10/2020 9:00 AM
--- NOTE | 2020-12-10 14:35 | PDOC.DS.DS ---
Provider Date of Admission: 12/02/20 17:43 Date of Discharge: 12/05/20 Admitting Provider: Jasmina Vaughn MD Primary Care Physician: NO PCP PROVIDER Course Hospital Course: Patient with lupus/ALS, seizure disorder, PTSD, systolic CHF (PM/AICD), COPD presents for headache, neck stiffness and dizziness x2 days. CTA showed 2 to 3 mm left MCA aneurysm. Brain aneurysm Presented for Neck stiffness, H/A, intermittent dizziness with head/eye movement, and tinnitus. MRI brain and echocardiogram. Neurosurgery consulted in the ER. Lumbar puncture recommended to look for xanthochromia. That was performed on 12/03/2020 with negative results. Patient was felt to have very low risk associated with this lesion. Outpatient follow-up with Dr. Sifuentes was recommended. Dizziness Reported present only with head movement or eye movement. CT/CTA no findings other than the left MCA 2 to 3 mm aneurysm. Meclizine as needed. Neurology consult felt this was most consistent with benign paroxysmal positional vertigo. Neurology consulted ENT. Symptoms resolved by 12/04/2020. Spinal headache Patient has a fairly severe debilitating headache following her lumbar puncture. patient had lumbar puncture in order to rule out any signs of rupture from her aneurysm. Subsequently she appeared to have a spinal headache. She was given butalbital and IV fluids. She appeared to have significant improvement by the following day. Chronic systolic heart failure Chronic, appears stable. Recent ablation (10/31), started on metoprolol and flecainide. Pacemaker (2008) EKG a paced with T inversions V3 through V6, no ST elevation Continue home dose flecainide and metoprolol. Chest pain Patient reports some chest discomfort on the afternoon of 12/03/2020. This was after taking some pills. Sounded much more esophageal in nature. EKG was obtained which did not reveal any significant findings of ischemia. COPD Chronic, appears stable. CXR no acute process. No home medications. History of CVA No residual deficits. Seizure disorder Chronic. Restart home dose Keppra Topamax. PTSD Denies SI/HI. Restart home dose Atarax and sertraline. Lupus Chronic, appears stable. ALS Chronic, appears stable. History of SVT Continue with flecainide, low-dose beta-ginny. moderate protein calorie malnutrition Resuscitation Status: 12/02/20 18:29 Resuscitation Status Routine Co-Sign Provider: Resuscitation Status: FULL: Full Resuscitation Discussed with: patient Lab Results: 12/04/20 23:08 12/04/20 23:08 Microbiology - Entire Visit 12/02/20 19:12 Venous blood - Right Hand Blood Culture - Final NO GROWTH IN 5 DAYS 12/02/20 19:20 Venous blood - Left Hand Blood Culture - Final NO GROWTH IN 5 DAYS Vitals: Weight Admit Weight 91 lb 9.6 oz Weight 91 lb 9.6 oz Physical Exam: The patient was seen and examined on the day of discharge. General Appearance: NAD, awake alert General - other findings: thin, but not dramatically worse than her previous visit Neck: supple, symmetric Respiratory: CTAB, no wheezes, no rales, no ronchi Cardiovascular: RRR, no murmur, no gallops, no rubs Gastrointestinal: soft, non-tender, non-distended, normal bowel sounds Extremities: no cyanosis, no clubbing, no edema Skin: normal turgor Neurological: no focal deficits Musculoskeletal: normal tone, normal strength, no muscle wasting PSYCH: normal affect, normal behavior, A&O x 3 Problem Time Spent in discharge related activities (mins): 35 (1) Brain aneurysm Status: Acute (2) Benign paroxysmal positional vertigo Code(s): H81.10 - BENIGN PAROXYSMAL VERTIGO, UNSPECIFIED EAR Status: Acute (3) ALS (amyotrophic lateral sclerosis) Code(s): G12.21 - AMYOTROPHIC LATERAL SCLEROSIS Status: Acute (4) COPD (chronic obstructive pulmonary disease) Status: Acute (5) Lupus Code(s): M32.9 - SYSTEMIC LUPUS ERYTHEMATOSUS, UNSPECIFIED Status: Acute (6) PTSD (post-traumatic stress disorder) Code(s): F43.10 - POST-TRAUMATIC STRESS DISORDER, UNSPECIFIED Status: Acute (7) Seizure disorder Code(s): G40.909 - EPILEPSY, UNSP, NOT INTRACTABLE, WITHOUT STATUS EPILEPTICUS Status: Acute (8) ALS (amyotrophic lateral sclerosis) Code(s): G12.21 - AMYOTROPHIC LATERAL SCLEROSIS Status: Acute Plan Prescriptions: Folic Acid [Folvite] 1 mg PO DAILY #30 tab Home Medications: Medication Instructions Recorded Confirmed Type Atorvastatin Calcium [Lipitor] 40 mg PO HS 08/22/20 12/05/20 History Cyclobenzaprine HCl 5 mg PO PRN PRN 08/22/20 12/05/20 History Sertraline HCl 200 mg PO DAILY 08/22/20 12/05/20 History Topiramate [Topamax] 200 mg PO BID 08/22/20 12/05/20 History hydrOXYzine HCl [Hydroxyzine HCl] 25 mg PO BID 08/22/20 12/05/20 History Flecainide [Tambocor] 50 mg PO Q12HR #60 tab 10/20/20 12/05/20 Rx Metoprolol Tartrate [Lopressor] 12.5 mg PO Q12HR #30 tab 10/20/20 12/05/20 Rx Folic Acid [Folvite] 1 mg PO DAILY #30 tab 12/05/20 12/05/20 Rx levETIRAcetam [Keppra] 1,500 mg PO BID #120 tab 12/06/20 Rx Allergies: quetiapine [From Seroquel] Allergy (Verified 10/17/20 01:26) Activity:: Activity as Tolerated Nourishment:: No Restrictions Referrals: Milton Mclaughlin MD [Active] - PROVIDER,NO PCP [Primary Care Provider] - Disposition: HOME Quality CORE MEASURES:: N/A
== END 2020-12-05 12:28 | disposition home or self-care (01) | DRG 92 ==
LOC: ERS 13:24 → ERHOLD 17:43 → 2SE 20:38
PROVIDERS: ADMIT Internal Medicine; ATTEND Internal Medicine
PROC: 009U3ZX Drainage of Spinal Canal, Percutaneous Approach, Diagnostic (ICD-10-PCS; principal; 2020-12-03)
DX: I67.1 Cerebral aneurysm, nonruptured (principal); G12.21 Amyotrophic lateral sclerosis; I50.22 Chronic systolic (congestive) heart failure; Z20.822 Contact with and (suspected) exposure to COVID-19; E44.0 Moderate protein-calorie malnutrition; M32.9 Systemic lupus erythematosus, unspecified; F43.10 Post-traumatic stress disorder, unspecified; I49.5 Sick sinus syndrome; J44.9 Chronic obstructive pulmonary disease, unspecified; E78.5 Hyperlipidemia, unspecified; F17.210 Nicotine dependence, cigarettes, uncomplicated; M81.0 Age-related osteoporosis without current pathological fracture; E78.00 Pure hypercholesterolemia, unspecified; H81.10 Benign paroxysmal vertigo, unspecified ear; G97.1 Other reaction to spinal and lumbar puncture; Z86.73 Personal history of transient ischemic attack (TIA), and cerebral infarction without residual deficits; Z68.1 Body mass index [BMI] 19.9 or less, adult; Z95.0 Presence of cardiac pacemaker; Z88.8 Allergy status to other drugs, medicaments and biological substances; Z79.899 Other long term (current) drug therapy; Z90.49 Acquired absence of other specified parts of digestive tract
CPT/HCPCS: 0240U; 36415; 36416; 62270; 70450; 70496; 70498; 71045; 80048; 80053; 80177; 80306; 80307; 81001; 81025; 82248; 82607; 82746; 82945; 83605; 83690; 83735; 83880; 84146; 84157; 84443; 84484; 85025; 85652; 86140; 87040; 89051; 93005; 93010; 93306; 95712; 95819; 95957; 96365; 96367; 96368; 96375; J0696; J0780; J1200; J1953; J2765; J3010; J3475; Q0162; Q9967

== ENCOUNTER 2021-01-25 13:50 | Observation (INO) | payer OTHER ==
[~2021-01-25 13:50] MED LIST changes: -Iopamidol 370 76% 100 ML VIAL ONE; +Iopamidol-370 76% 500 ML 1 ML ONE
[2021-01-25 15:04] LABS: #Lymphocytes 0.9 thou/uL (1.20-3.40); #Monocytes 0.2 thou/uL (0.11-0.59); #Neutrophils 4.9 thou/uL (1.40-6.50); %Basophils 0.5 % (0.0-1.0); %Eosinophils 0.6 % (0.0-10.0); %Lymphocytes 15.4 % (21.0-51.0); %Monocytes 3.2 % (0.0-10.0); %Neutrophils 80.4 % (42.0-75.0); Hemoglobin 14.1 g/dL (12.0-16.0); Mean Corpuscular HGB CONC 33.2 g/dL (32.0-36.0); Mean Corpuscular Hemoglobin 29.5 pg (27.0-31.0); Mean Corpuscular Volume 88.7 fL (78.0-98.0); Mean Platelet Volume 8.7 fL (7.4-10.4); Platelet Count 258 thou/uL (130-400); RBC Distribution Width 11.1 % (11.5-14.5); Red Blood Cell (RBC) Count 4.78 mill/uL (4.20-5.40); White Blood Cell (WBC) Count 6.1 thou/uL (4.8-10.8)
[2021-01-25 15:10] LABS: INR-International Normal Ratio 0.9; PTT 36.6 sec (22.9-36.1); Prothrombin Time 12.3 sec (12.0-14.7)
[2021-01-25] MEDS ORDERED: Lorazepam 2 MG/ML VIAL ONE (15:19)
[2021-01-25 15:30] LABS: ALT (SGPT) 22 U/L (8-55); AST (SGOT) 37 U/L (5-34); Alkaline Phosphatase 85 U/L (40-110); Anion Gap 18 mmol/L (10-20); BUN (Urea Nitrogen) 9 mg/dL (7.0-18.7); Bilirubin, Total 0.4 mg/dL (0.2-1.2); Calc. Creatinine Clearance 0 mL/min (70-130); Calcium 9.8 mg/dL (7.8-10.44); Carbon Dioxide 19 mmol/L (22-29); Chloride 107 mmol/L (98-107); Globulin 3.4 g/dL (2.4-3.5); Glucose 81 mg/dL (70-105); Lipase 39 U/L (8-78); Magnesium 2.1 mg/dL (1.6-2.6); Potassium 3.5 mmol/L (3.5-5.1); Protein, Total 8.4 g/dL (6.0-8.3); Sodium 140 mmol/L (136-145)
[2021-01-25] MEDS ORDERED: levETIRAcetam in NS 100 ML ONE ×2 (15:33→16:42)
[2021-01-25] MEDS ORDERED: Aspirin Chewable 81 MG TAB ONE (16:40)
[2021-01-25 18:08] LABS: Lactic Acid 0.8 mmol/L (0.5-2.2)
[2021-01-25 18:10] LABS: Troponin I 0.011 ng/mL (< 0.028)
[2021-01-25 18:12] LABS: Acetaminophen Less than 6.0 mcg/mL (10.0-30.0); Alcohol Less than 10 mg/dL (Less than 10); Salicylate Less than 8.0 mg/dL (15.0-30.0)
[2021-01-25] MEDS ORDERED: Nitroglycerin 0.4 MG TAB (25 Tab Bottle) SL PRN (18:37)
[2021-01-25 18:38] LABS: Bilirubin Negative (Negative); Blood, Urine Negative (Negative); Clarity Clear (Clear); Glucose, Urine (Dipstick) Normal (Negative); Ketone, Urine Negative (Negative); Leukocyte Negative Leu/uL (Negative); Nitrite Negative (Negative); Protein, Urine (Dipstick) Negative (Neg-Trace); Urobilinogen Normal mg/dL (Less than 2); pH, Urine 7.5 (5.0-9.0)
[2021-01-25 18:39] LABS: Specific Gravity, Urine 1.046 (1.002-1.036)
[2021-01-25] MEDS ORDERED: Acetaminophen 650 MG Suppository PR PRN (18:46)
[2021-01-25] MEDS ORDERED: Acetaminophen 325 MG TAB PO PRN (18:46)
[2021-01-25] MEDS ORDERED: Ondansetron PF 4 MG/2 ML Vial IVP PRN (18:46)
[2021-01-25] MEDS ORDERED: Ondansetron ODT 4 MG TAB PO PRN (18:46)
[2021-01-25 18:57] LABS: Pregnancy Test - Urine (BHCG) Negative (Negative)
[2021-01-25 18:58] LABS: Pregu Control Background? CLEAR/WHITE (CLR/WHITE); Pregu Control Bar Appear? YES (CONTROL BAR); Specific Gravity 1.046 (1.002-1.036)
[2021-01-25 21:09] LABS: Troponin I Less than 0.010 ng/mL (< 0.028)
[2021-01-25] MEDS: Famotidine 20 MG TAB PO SCH (22:55)
[2021-01-25] MEDS: Atorvastatin Calcium 40 MG TAB PO SCH (22:55)
[2021-01-25] MEDS: Flecainide 50 MG TAB PO SCH (22:55)
[2021-01-25] MEDS: hydrOXYzine 25 MG TAB PO SCH (22:56)
[2021-01-25] MEDS: Metoprolol Tartrate 25 MG TAB PO SCH (22:57)
[2021-01-25] MEDS: Topiramate 100 MG TAB PO SCH (22:58)
[2021-01-25] MEDS: levETIRAcetam 500 MG TAB PO SCH (23:01)
[2021-01-25] MEDS: Famotidine/PF 20 mg/2ml Vial SLOW IVP SCH (23:42)
[2021-01-26 05:58] LABS: Anion Gap 11 mmol/L (10-20); BUN (Urea Nitrogen) 7 mg/dL (7.0-18.7); Calc. Creatinine Clearance 60 mL/min (70-130); Calcium 7.9 mg/dL (7.8-10.44); Carbon Dioxide 14 mmol/L (22-29); Cardiac Risk 3.3 (Less than 4.5); Chloride 115 mmol/L (98-107); Cholesterol 114 mg/dl (< 200 Desired); Glucose 85 mg/dL (70-105); HDL Cholesterol 35 mg/dL (>60 Neg Risk); LDL Cholesterol, Calculated 67 mg/dL; Potassium 4.2 mmol/L (3.5-5.1); Sodium 136 mmol/L (136-145); Triglycerides 61 mg/dL (Less than 150)
[2021-01-26 06:09] LABS: Amphetamine Not Detected (NotDetected); Barbiturates Screen Not Detected (NotDetected); Benzodiazepine Screen Detected (NotDetected); Cocaine Metabolite Screen Not Detected (NotDetected); Medtox Control Line Valid? VALID (VALID); Medtox Reader # READER 4; Methadone Not Detected (NotDetected); Methamphetamine Not Detected (NotDetected); Opiate Screen Not Detected (NotDetected); Oxycodone Screen Not Detected (NotDetected); Phencyclidine (PCP) Not Detected (NotDetected); THC/Cannabinoid Screen Detected (NotDetected); Tricyclic Screen Detected (NotDetected)
[2021-01-26 06:51] LABS: #Basophils 0.1 thou/uL (0.0-0.2); #Eosinphils 0.2 thou/uL (0.0-0.7); #Monocytes 0.5 thou/uL (0.11-0.59); #Neutrophils 2.2 thou/uL (1.40-6.50); %Basophils 1.6 % (0.0-1.0); %Lymphocytes 25.4 % (21.0-51.0); %Monocytes 12.9 % (0.0-10.0); %Neutrophils 56.1 % (42.0-75.0); Hemoglobin 10.1 g/dL (12.0-16.0); Mean Corpuscular HGB CONC 33.3 g/dL (32.0-36.0); Mean Corpuscular Hemoglobin 29.9 pg (27.0-31.0); Mean Corpuscular Volume 89.8 fL (78.0-98.0); Mean Platelet Volume 8.4 fL (7.4-10.4); Platelet Count 189 thou/uL (130-400); Red Blood Cell (RBC) Count 3.37 mill/uL (4.20-5.40); White Blood Cell (WBC) Count 3.8 thou/uL (4.8-10.8)
[2021-01-26 09:13] LABS: SARS-CoV-2 PCR by NAA Not Detected (NotDetected)
[2021-01-26] MEDS: Metoprolol Tartrate 25 MG TAB PO SCH ×2 (09:31→21:04)
[2021-01-26] MEDS: Folic Acid 1 MG TAB PO SCH (09:31)
[2021-01-26] MEDS: Topiramate 100 MG TAB PO SCH ×2 (09:31→21:04)
[2021-01-26] MEDS: Famotidine 20 MG TAB PO SCH ×2 (09:31→21:02)
[2021-01-26] MEDS: hydrOXYzine 25 MG TAB PO SCH ×2 (09:31→21:03)
[2021-01-26] MEDS: Aspirin Chewable 81 MG TAB PO SCH (09:31)
[2021-01-26] MEDS: Flecainide 50 MG TAB PO SCH ×2 (09:31→21:02)
[2021-01-26] MEDS: levETIRAcetam 500 MG TAB PO SCH ×2 (09:32→21:04)
[2021-01-26] MEDS: Famotidine/PF 20 mg/2ml Vial SLOW IVP SCH (09:39)
[2021-01-26] MEDS: Atorvastatin Calcium 40 MG TAB PO SCH (21:02)
[2021-01-27] MEDS: Famotidine/PF 20 mg/2ml Vial SLOW IVP SCH ×2 (04:44→08:40)
[2021-01-27 08:56] VITALS: BP 98/58
[2021-01-27] MEDS ORDERED: Lorazepam 2 MG/ML VIAL ONE (10:25)
[2021-01-27] MEDS ORDERED: Lorazepam 2 MG/ML VIAL SLOW IVP SCH (10:45)
[2021-01-27] MEDS ORDERED: levETIRAcetam in NS 1,500 MG in Premix Bag 1 BAG IVPB SCH ×2 (10:45→21:00)
[2021-01-27 12:00] VITALS: BMI 14.2
[2021-01-27] MEDS ORDERED: Regadenoson 0.4 MG/5 ML SYRINGE ONE (12:38)
[2021-01-27] MEDS: hydrOXYzine 25 MG TAB PO SCH (12:39)
[2021-01-27] MEDS: Topiramate 100 MG TAB PO SCH (12:39)
[2021-01-27] MEDS: Flecainide 50 MG TAB PO SCH (12:40)
[2021-01-27] MEDS: Famotidine 20 MG TAB PO SCH (12:40)
[2021-01-27] MEDS: Metoprolol Tartrate 25 MG TAB PO SCH ×2 (12:40→12:41)
[2021-01-27] MEDS: Aspirin Chewable 81 MG TAB PO SCH (12:40)
[2021-01-27] MEDS: Folic Acid 1 MG TAB PO SCH (12:40)
[2021-01-27 12:44] LABS: Hemoglobin 11.8 g/dL (12.0-16.0)
[2021-01-27 13:43] VITALS: TEMP 98.3
== END 2021-01-27 13:15 | disposition left against medical advice (07) ==
LOC: ERS 13:50 → 2SW 17:08 → CCU 01-27 10:05
PROVIDERS: ADMIT Internal Medicine; ATTEND Internal Medicine
DX: R07.2 Precordial pain (principal); J43.9 Emphysema, unspecified; M32.9 Systemic lupus erythematosus, unspecified; G40.909 Epilepsy, unspecified, not intractable, without status epilepticus; I50.22 Chronic systolic (congestive) heart failure; G12.21 Amyotrophic lateral sclerosis; I49.5 Sick sinus syndrome; I47.1 Supraventricular tachycardia; M81.0 Age-related osteoporosis without current pathological fracture; E78.5 Hyperlipidemia, unspecified; E78.00 Pure hypercholesterolemia, unspecified; F12.10 Cannabis abuse, uncomplicated; F17.210 Nicotine dependence, cigarettes, uncomplicated; I67.1 Cerebral aneurysm, nonruptured; G89.4 Chronic pain syndrome; Z86.73 Personal history of transient ischemic attack (TIA), and cerebral infarction without residual deficits; Z79.82 Long term (current) use of aspirin; Z79.899 Other long term (current) drug therapy; Z88.8 Allergy status to other drugs, medicaments and biological substances; Z95.0 Presence of cardiac pacemaker; Z20.822 Contact with and (suspected) exposure to COVID-19
CPT/HCPCS: 36415; 51701; 70450; 71045; 71275; 74177; 78452; 80048; 80053; 80061; 80306; 80307; 81003; 81025; 82550; 82607; 82746; 83605; 83690; 83735; 83880; 84146; 84443; 84484; 85014; 85018; 85025; 85610; 85730; 86850; 86900; 86901; 87086; 87635; 93005; 93017; 94760; 96365; 96375; 96376; A9500; G0378; J1953; J2060; J2785; Q9967; S0028; U0003; U0005

== ENCOUNTER 2021-02-14 12:10 | Outpatient (CLI) | payer OTHER ==
[2021-02-14 14:55] LABS: Hemoglobin 12.1 g/dL (12.0-15.5); Mean Corpuscular HGB CONC 33.2 g/dL (32.0-36.0); Mean Corpuscular Hemoglobin 29.2 pg (27.0-33.0); Mean Corpuscular Volume 87.7 fl (81.6-98.3); Platelet Count 243 10x3/uL (150-450); RBC Distribution Width 11.9 % (11.5-14.5); Red Blood Cell (RBC) Count 4.15 10x6/uL (3.90-5.03); White Blood Cell (WBC) Count 5.8 10x3/uL (3.5-10.5)
[2021-02-14 15:04] LABS: Anion Gap 13 mmol/L (10-20); BUN (Urea Nitrogen) 7 mg/dL (7.0-18.7); Calc. Creatinine Clearance 0 mL/min (70-130); Carbon Dioxide 21 mmol/L (22-29); Chloride 111 mmol/L (98-107); Glucose 71 mg/dL (70-105); Potassium 4.4 mmol/L (3.5-5.1); Sodium 141 mmol/L (136-145)
[2021-02-15 01:51] LABS: SARS-CoV-2 PCR by NAA Not Detected (NotDetected)
== END 2021-02-14 12:11 | disposition home or self-care (01) ==
LOC: LABBT 12:10
PROVIDERS: ATTEND Neurological Surgery
DX: Z01.812 Encounter for preprocedural laboratory examination (principal); I72.9 Aneurysm of unspecified site; Z20.822 Contact with and (suspected) exposure to COVID-19
CPT/HCPCS: 80048; 85027; 87635; U0003; U0005

== ENCOUNTER 2021-02-19 09:44 | Day surgery (SDC) | payer OTHER ==
[2021-02-18 12:15] VITALS: BMI 30.1
[~2021-02-19 09:44] MED LIST changes: +Iopamidol 370 76% 100 ML VIAL ONE; -Iopamidol-370 76% 500 ML 1 ML ONE
[2021-02-19] MEDS ORDERED: Heparin 10,000 UNITS/ 10 ML VIAL ONE (10:34)
== END 2021-02-19 14:15 | disposition home or self-care (01) ==
LOC: CCL 09:44
PROVIDERS: ATTEND Neurological Surgery
PROC: B3171ZZ Fluoroscopy of Left Internal Carotid Artery using Low Osmolar Contrast (ICD-10-PCS; principal; 2021-02-19)
DX: I67.1 Cerebral aneurysm, nonruptured (principal); M45.9 Ankylosing spondylitis of unspecified sites in spine; G43.909 Migraine, unspecified, not intractable, without status migrainosus; G40.909 Epilepsy, unspecified, not intractable, without status epilepticus; Z79.82 Long term (current) use of aspirin; Z79.899 Other long term (current) drug therapy; Z88.8 Allergy status to other drugs, medicaments and biological substances
CPT/HCPCS: 36223; J1644; Q9967

== ENCOUNTER 2021-05-18 18:41 | Emergency (ER) | payer OTHER ==
[2021-05-18 20:50] LABS: #Lymphocytes 0.5 thou/uL (1.20-3.40); #Monocytes 0.3 thou/uL (0.11-0.59); #Neutrophils 1.9 thou/uL (1.40-6.50); %Basophils 0.4 % (0.0-1.0); %Lymphocytes 17.3 % (21.0-51.0); %Monocytes 11.2 % (0.0-10.0); %Neutrophils 71.1 % (42.0-75.0); Mean Corpuscular HGB CONC 34.2 g/dL (32.0-36.0); Mean Corpuscular Hemoglobin 31.5 pg (27.0-31.0); Mean Corpuscular Volume 92.1 fL (78.0-98.0); Mean Platelet Volume 8.5 fL (7.4-10.4); Platelet Count 168 thou/uL (130-400); RBC Distribution Width 11.5 % (11.5-14.5); Red Blood Cell (RBC) Count 3.49 mill/uL (4.20-5.40); White Blood Cell (WBC) Count 2.6 thou/uL (4.8-10.8)
[2021-05-18 21:05] LABS: ALT (SGPT) 14 U/L (8-55); AST (SGOT) 18 U/L (5-34); Albumin 3.8 g/dL (3.5-5.0); Alkaline Phosphatase 53 U/L (40-110); Anion Gap 9 mmol/L (10-20); BUN (Urea Nitrogen) 8 mg/dL (7.0-18.7); Bilirubin, Total 0.3 mg/dL (0.2-1.2); Calc. Creatinine Clearance 0 mL/min (70-130); Calcium 8.1 mg/dL (7.8-10.44); Carbon Dioxide 23 mmol/L (22-29); Chloride 107 mmol/L (98-107); Globulin 2.2 g/dL (2.4-3.5); Glucose 106 mg/dL (70-105); Potassium 3.2 mmol/L (3.5-5.1); Sodium 136 mmol/L (136-145)
[2021-05-18 21:54] LABS: SARS-CoV-2 NAA Rapid Test DETECTED (NotDetected)
[2021-05-18 22:30] LABS: Troponin I Less than 0.010 ng/mL (< 0.028)
== END 2021-05-18 22:46 | disposition home or self-care (01) ==
LOC: ERS 18:41
DX: U07.1 COVID-19 (principal); J44.1 Chronic obstructive pulmonary disease with (acute) exacerbation; E78.5 Hyperlipidemia, unspecified; E78.00 Pure hypercholesterolemia, unspecified; F17.200 Nicotine dependence, unspecified, uncomplicated; Z79.899 Other long term (current) drug therapy
CPT/HCPCS: 0240U; 36415; 71045; 80053; 84484; 85025; 93005

== ENCOUNTER 2021-06-20 10:46 | Emergency (ER) | payer OTHER ==
[2021-06-20] MEDS ORDERED: Ondansetron PF 4 MG/2 ML Vial ONE (11:08)
[2021-06-20] MEDS ORDERED: Iopamidol-370 76% 500 ML 1 ML ONE (11:24)
[2021-06-20 11:50] LABS: #Lymphocytes 0.4 thou/uL (1.20-3.40); #Monocytes 0.2 thou/uL (0.11-0.59); #Neutrophils 6.3 thou/uL (1.40-6.50); %Basophils 0.2 % (0.0-1.0); %Lymphocytes 5.7 % (21.0-51.0); %Neutrophils 91.1 % (42.0-75.0); Hemoglobin 12.9 g/dL (12.0-16.0); Mean Corpuscular HGB CONC 33.9 g/dL (32.0-36.0); Mean Corpuscular Hemoglobin 31.3 pg (27.0-31.0); Mean Corpuscular Volume 92.3 fL (78.0-98.0); Mean Platelet Volume 8.4 fL (7.4-10.4); Platelet Count 220 thou/uL (130-400); RBC Distribution Width 11.5 % (11.5-14.5); Red Blood Cell (RBC) Count 4.12 mill/uL (4.20-5.40); White Blood Cell (WBC) Count 6.9 thou/uL (4.8-10.8)
[2021-06-20 12:04] LABS: BHCG - Serum Negative (NEGATIVE); Pregs Control Background? CLEAR/WHITE (CLR/WHITE); Pregs Control Bar Appear? YES (CONTROL BAR)
[2021-06-20] MEDS ORDERED: Acetaminophen 500 MG TAB ONE (12:10)
[2021-06-20] MEDS ORDERED: diphenhydrAMINE 50 MG/ML VIAL ONE (12:10)
[2021-06-20] MEDS ORDERED: Metoclopramide HCl 10 MG/2 ML VIAL ONE (12:10)
[2021-06-20 12:12] LABS: ALT (SGPT) 16 U/L (8-55); AST (SGOT) 23 U/L (5-34); Albumin 4.2 g/dL (3.5-5.0); Alkaline Phosphatase 63 U/L (40-110); Anion Gap 13 mmol/L (10-20); BUN (Urea Nitrogen) 4 mg/dL (7.0-18.7); Bilirubin, Total 0.4 mg/dL (0.2-1.2); CK (CPK) 179 U/L (29-168); Calc. Creatinine Clearance 0 mL/min (70-130); Calcium 9.3 mg/dL (7.8-10.44); Carbon Dioxide 21 mmol/L (22-29); Chloride 104 mmol/L (98-107); Globulin 2.6 g/dL (2.4-3.5); Glucose 107 mg/dL (70-105); Potassium 3.8 mmol/L (3.5-5.1); Protein, Total 6.8 g/dL (6.0-8.3); Sodium 134 mmol/L (136-145)
[2021-06-20] MEDS ORDERED: levETIRAcetam in NS 200 ML ONE (12:14)
[2021-06-20] MEDS ORDERED: Lorazepam 2 MG/ML VIAL ONE (13:19)
[2021-06-20 15:09] LABS: Color Of CSF Supernatant STRAW (Colorless); Tube # 1; Unspun CSF Color PINK (Colorless)
[2021-06-20 15:23] LABS: CSF, Glucose 69 mg/dl (40-70); CSF, Protein 47 mg/dL (15-40)
[2021-06-20 15:42] LABS: CSF Source CSF; Clarity Clear (Clear); Tube # 1
[2021-06-20 15:44] LABS: Cell Count Non Hematic 12 %; Lymphocytes 8 %
[2021-06-20 15:46] LABS: CSF Source CSF; Clarity Clear (Clear); Tube # 4
[2021-06-20 15:49] LABS: Segmented Neutrophils 80 %
[2021-06-20 18:36] LABS: Bilirubin Negative (Negative); Blood, Urine Negative (Negative); Clarity Clear (Clear); Glucose, Urine (Dipstick) Normal (Negative); Ketone, Urine Negative (Negative); Leukocyte Negative Leu/uL (Negative); Nitrite Negative (Negative); Protein, Urine (Dipstick) Negative (Neg-Trace); Specific Gravity, Urine 1.028 (1.002-1.036); Urobilinogen Normal mg/dL (Less than 2); pH, Urine 7.5 (5.0-9.0)
== END 2021-06-20 18:36 | disposition home or self-care (01) ==
LOC: ERS 10:46
DX: A87.9 Viral meningitis, unspecified (principal); E78.5 Hyperlipidemia, unspecified; E78.00 Pure hypercholesterolemia, unspecified; J44.9 Chronic obstructive pulmonary disease, unspecified; Z86.73 Personal history of transient ischemic attack (TIA), and cerebral infarction without residual deficits; Z87.891 Personal history of nicotine dependence; R56.9 Unspecified convulsions; Z79.899 Other long term (current) drug therapy; Z79.52 Long term (current) use of systemic steroids
CPT/HCPCS: 36415; 70496; 80053; 80177; 81003; 82550; 82945; 83605; 84157; 84703; 85025; 85060; 87070; 87205; 89051; 96365; 96368; 96375; J1200; J1953; J2060; J2405; J2765; Q9967

== ENCOUNTER 2021-07-18 14:05 | Emergency (ER) | payer OTHER ==
[2021-07-18] MEDS ORDERED: Ketorolac Tromethamine 30 MG/ML VIAL ONE (16:26)
[2021-07-18] MEDS ORDERED: Morphine 4 MG/ML VIAL ONE (16:26)
[2021-07-18] MEDS ORDERED: Dexamethasone 10 MG/ML VIAL ONE (16:34)
== END 2021-07-18 17:15 | disposition home or self-care (01) ==
LOC: ERS 14:05
DX: M47.816 Spondylosis without myelopathy or radiculopathy, lumbar region (principal); E78.5 Hyperlipidemia, unspecified; E78.00 Pure hypercholesterolemia, unspecified; J44.9 Chronic obstructive pulmonary disease, unspecified; M81.0 Age-related osteoporosis without current pathological fracture; Z87.891 Personal history of nicotine dependence; Z85.118 Personal history of other malignant neoplasm of bronchus and lung; Z86.73 Personal history of transient ischemic attack (TIA), and cerebral infarction without residual deficits
CPT/HCPCS: 72128; 72131; 96372; J1100; J1885; J2270

== ENCOUNTER 2021-08-30 16:58 | Emergency (ER) | payer OTHER ==
[2021-08-30 17:48] LABS: #Lymphocytes 0.9 thou/uL (1.20-3.40); #Monocytes 0.4 thou/uL (0.11-0.59); #Neutrophils 3.3 thou/uL (1.40-6.50); %Basophils 0.6 % (0.0-1.0); %Eosinophils 0.3 % (0.0-10.0); %Lymphocytes 19.7 % (21.0-51.0); %Monocytes 9.4 % (0.0-10.0); %Neutrophils 70.1 % (42.0-75.0); Hemoglobin 14.4 g/dL (12.0-16.0); Mean Corpuscular Hemoglobin 34.5 pg (27.0-31.0); Mean Corpuscular Volume 91.2 fL (78.0-98.0); Mean Platelet Volume 7.9 fL (7.4-10.4); Platelet Count 189 thou/uL (130-400); RBC Distribution Width 11.1 % (11.5-14.5); Red Blood Cell (RBC) Count 4.17 mill/uL (4.20-5.40); White Blood Cell (WBC) Count 4.7 thou/uL (4.8-10.8)
[2021-08-30 17:54] LABS: Mean Corpuscular HGB CONC 34.1 g/dL (32.0-36.0)
[2021-08-30 18:07] LABS: ALT (SGPT) 17 U/L (8-55); AST (SGOT) 24 U/L (5-34); Albumin 4.4 g/dL (3.5-5.0); Alkaline Phosphatase 70 U/L (40-110); Anion Gap 13 mmol/L (10-20); BUN (Urea Nitrogen) 5 mg/dL (7.0-18.7); Bilirubin, Total 0.4 mg/dL (0.2-1.2); Calc. Creatinine Clearance 0 mL/min (70-130); Calcium 9.3 mg/dL (7.8-10.44); Carbon Dioxide 20 mmol/L (22-29); Chloride 107 mmol/L (98-107); Globulin 2.8 g/dL (2.4-3.5); Glucose 115 mg/dL (70-105); Protein, Total 7.2 g/dL (6.0-8.3); Sodium 137 mmol/L (136-145)
[2021-08-30 18:10] LABS: Potassium 2.9 mmol/L (3.5-5.1)
[2021-08-30] MEDS ORDERED: Ketorolac Tromethamine 30 MG/ML VIAL ONE (18:16)
[2021-08-30] MEDS ORDERED: Metoclopramide HCl 10 MG/2 ML VIAL ONE ×2 (18:16→20:04)
[2021-08-30 18:20] LABS: Bilirubin Negative (Negative); Blood, Urine Negative (Negative); Clarity Clear (Clear); Glucose, Urine (Dipstick) Normal (Negative); Ketone, Urine Negative (Negative); Leukocyte Negative Leu/uL (Negative); Nitrite Negative (Negative); Protein, Urine (Dipstick) Negative (Neg-Trace); Specific Gravity, Urine 1.008 (1.002-1.036); Urobilinogen Normal mg/dL (Less than 2); pH, Urine 6.5 (5.0-9.0)
[2021-08-30 18:29] LABS: CK (CPK) 86 U/L (29-168); Magnesium 1.7 mg/dL (1.6-2.6)
[2021-08-30] MEDS ORDERED: Magnesium 2 GM/50 ML BAG (IN WATER) ONE (20:03)
[2021-08-30] MEDS ORDERED: Potassium Chloride 20 MEQ TAB ONE (20:03)
[2021-08-30] MEDS ORDERED: Acetaminophen/Codeine 30-300mg Tablet ONE (20:03)
[2021-08-30] MEDS ORDERED: methylPREDNISolone Sod Succ/PF 125 MG/2 ML VIAL ONE (20:04)
== END 2021-08-30 23:10 | disposition home or self-care (01) ==
LOC: ERS 16:58
DX: E87.6 Hypokalemia (principal); R51.9 Headache, unspecified; J44.9 Chronic obstructive pulmonary disease, unspecified; E78.5 Hyperlipidemia, unspecified; Z87.891 Personal history of nicotine dependence
CPT/HCPCS: 70450; 71045; 80053; 81003; 82550; 83735; 84484; 85025; 93005; 96365; 96367; 96368; 96375; J1885; J2765; J2930; J3475

== ENCOUNTER 2021-10-06 04:32 | Inpatient (IN) | payer OTHER ==
[2021-10-06] MEDS ORDERED: Adenosine 6 MG/2 ML VIAL ONE (04:35)
[2021-10-06] MEDS ORDERED: Diltiazem 125 MG/25 ML ONE (04:40)
[2021-10-06] MEDS ORDERED: Ondansetron PF 4 MG/2 ML Vial ONE (05:00)
[2021-10-06 05:16] LABS: #Eosinphils 0.1 thou/uL (0.0-0.7); #Lymphocytes 0.8 thou/uL (1.20-3.40); #Monocytes 0.5 thou/uL (0.11-0.59); %Basophils 1.1 % (0.0-1.0); %Eosinophils 2.4 % (0.0-10.0); %Lymphocytes 18.4 % (21.0-51.0); %Monocytes 10.4 % (0.0-10.0); %Neutrophils 67.8 % (42.0-75.0); Hemoglobin 13.3 g/dL (12.0-16.0); Mean Corpuscular HGB CONC 34.1 g/dL (32.0-36.0); Mean Corpuscular Hemoglobin 31.6 pg (27.0-31.0); Mean Corpuscular Volume 92.6 fL (78.0-98.0); Mean Platelet Volume 8.5 fL (7.4-10.4); Platelet Count 192 thou/uL (130-400); RBC Distribution Width 11.2 % (11.5-14.5); Red Blood Cell (RBC) Count 4.21 mill/uL (4.20-5.40); White Blood Cell (WBC) Count 4.5 thou/uL (4.8-10.8)
[2021-10-06 05:30] LABS: ALT (SGPT) 11 U/L (8-55); AST (SGOT) 16 U/L (5-34); Albumin 3.9 g/dL (3.5-5.0); Alkaline Phosphatase 63 U/L (40-110); Anion Gap 9 mmol/L (10-20); BUN (Urea Nitrogen) 6 mg/dL (7.0-18.7); Bilirubin, Total 0.2 mg/dL (0.2-1.2); Calc. Creatinine Clearance 0 mL/min (70-130); Calcium 8.9 mg/dL (7.8-10.44); Carbon Dioxide 23 mmol/L (22-29); Chloride 111 mmol/L (98-107); Globulin 2.2 g/dL (2.4-3.5); Glucose 89 mg/dL (70-105); Potassium 3.3 mmol/L (3.5-5.1); Protein, Total 6.1 g/dL (6.0-8.3); Sodium 140 mmol/L (136-145)
[2021-10-06] MEDS ORDERED: Lorazepam 2 MG/ML VIAL ONE (05:38)
[2021-10-06 06:12] LABS: Acetaminophen Less than 6.0 mcg/mL (10.0-30.0); Alcohol Less than 10 mg/dL (Less than 10); Salicylate Less than 8.0 mg/dL (15.0-30.0)
[2021-10-06 06:16] LABS: SARS-CoV-2 NAA Rapid Test Not Detected (NotDetected)
[2021-10-06] MEDS ORDERED: Potassium Chloride 20 MEQ TAB ONE (06:22)
[2021-10-06 06:29] LABS: Amphetamine Not Detected (NotDetected); Barbiturates Screen Not Detected (NotDetected); Benzodiazepine Screen Not Detected (NotDetected); Cocaine Metabolite Screen Not Detected (NotDetected); Methadone Not Detected (NotDetected); Methamphetamine Not Detected (NotDetected); Opiate Screen Not Detected (NotDetected); Oxycodone Screen Not Detected (NotDetected); Phencyclidine (PCP) Not Detected (NotDetected); THC/Cannabinoid Screen Detected (NotDetected); Tricyclic Screen Not Detected (NotDetected)
[2021-10-06] MEDS ORDERED: Acetaminophen 325 MG TAB PO PRN (07:23)
[2021-10-06] MEDS ORDERED: Lorazepam 2 MG/ML VIAL SLOW IVP PRN (07:29)
[2021-10-06] MEDS ORDERED: Diltiazem 125 MG in Sodium Chloride 0.9% 100 ML IVPB SCH (07:30)
[2021-10-06] MEDS ORDERED: Metoclopramide HCl 10 MG/2 ML VIAL IVP PRN (07:30)
[2021-10-06 08:26] LABS: Magnesium 1.9 mg/dL (1.6-2.6)
[2021-10-06] MEDS: Nicotine 7 MG PATCH TD SCH (08:58)
[2021-10-06 09:46] LABS: Troponin I 0.017 ng/mL (< 0.028)
[2021-10-06 12:44] LABS: Troponin I Less than 0.010 ng/mL (< 0.028)
[2021-10-06 15:07] VITALS: BMI 14.0
[2021-10-06] MEDS: Flecainide 50 MG TAB PO SCH (19:15)
[2021-10-06] MEDS ORDERED: Morphine 4 MG/ML VIAL SLOW IVP SCH (19:30)
[2021-10-06] MEDS ORDERED: Magnesium 2 GM/50 ML 2 GM in Premix Bag 1 BAG IVPB SCH (19:30)
[2021-10-06 20:26] LABS: Troponin I Less than 0.010 ng/mL (< 0.028)
[2021-10-06 21:36] LABS: Anion Gap 10 mmol/L (10-20); BUN (Urea Nitrogen) 8 mg/dL (7.0-18.7); Calc. Creatinine Clearance 45 mL/min (70-130); Calcium 8.7 mg/dL (7.8-10.44); Carbon Dioxide 22 mmol/L (22-29); Chloride 110 mmol/L (98-107); Glucose 98 mg/dL (70-105); Magnesium 3.3 mg/dL (1.6-2.6); Sodium 138 mmol/L (136-145)
[2021-10-06 23:59] LABS: Troponin I Less than 0.010 ng/mL (< 0.028)
[2021-10-07 05:35] LABS: #Eosinphils 0.1 thou/uL (0.0-0.7); #Lymphocytes 0.8 thou/uL (1.20-3.40); #Monocytes 0.5 thou/uL (0.11-0.59); #Neutrophils 3.3 thou/uL (1.40-6.50); %Basophils 0.5 % (0.0-1.0); %Eosinophils 2.5 % (0.0-10.0); %Lymphocytes 17.2 % (21.0-51.0); %Monocytes 9.6 % (0.0-10.0); %Neutrophils 70.2 % (42.0-75.0); Hemoglobin 12.2 g/dL (12.0-16.0); Mean Corpuscular HGB CONC 33.8 g/dL (32.0-36.0); Mean Corpuscular Hemoglobin 31.5 pg (27.0-31.0); Mean Corpuscular Volume 93.1 fL (78.0-98.0); Mean Platelet Volume 8.1 fL (7.4-10.4); Platelet Count 172 thou/uL (130-400); RBC Distribution Width 11.2 % (11.5-14.5); Red Blood Cell (RBC) Count 3.88 mill/uL (4.20-5.40); White Blood Cell (WBC) Count 4.6 thou/uL (4.8-10.8)
[2021-10-07 06:18] LABS: Anion Gap 10 mmol/L (10-20); BUN (Urea Nitrogen) 9 mg/dL (7.0-18.7); Calc. Creatinine Clearance 51 mL/min (70-130); Calcium 8.6 mg/dL (7.8-10.44); Carbon Dioxide 20 mmol/L (22-29); Chloride 112 mmol/L (98-107); Glucose 90 mg/dL (70-105); Magnesium 2.5 mg/dL (1.6-2.6); Sodium 138 mmol/L (136-145)
[2021-10-07] MEDS: Flecainide 50 MG TAB PO SCH ×2 (08:11→20:39)
[2021-10-07] MEDS: Nicotine 7 MG PATCH TD SCH (08:12)
[2021-10-07] MEDS: Morphine 4 MG/ML VIAL SLOW IVP PRN ×2 (12:19→17:56)
[2021-10-07] MEDS: Budesonide 0.5 MG/2 ML NEB NEB SCH (18:24)
[2021-10-07] MEDS: Topiramate 100 MG TAB PO SCH (20:39)
[2021-10-07] MEDS: Atorvastatin Calcium 40 MG TAB PO SCH (20:39)
[2021-10-08] MEDS: Budesonide 0.5 MG/2 ML NEB NEB SCH ×2 (06:55→18:19)
[2021-10-08] MEDS: Topiramate 100 MG TAB PO SCH ×2 (08:32→20:19)
[2021-10-08] MEDS: Flecainide 50 MG TAB PO SCH ×2 (08:33→20:19)
[2021-10-08] MEDS: Nicotine 7 MG PATCH TD SCH (08:34)
[2021-10-08] MEDS: Cyclobenzaprine 10 MG TAB PO PRN ×2 (08:35→20:17)
[2021-10-08] MEDS ORDERED: K PO SCH (11:30)
[2021-10-08] MEDS ORDERED: HYDROcodone/Acetaminophen 7.5/325 mg Tablet PO SCH (19:34)
[2021-10-08] MEDS: K PO SCH (20:18)
[2021-10-08] MEDS: Atorvastatin Calcium 40 MG TAB PO SCH (20:20)
[2021-10-09] MEDS: Morphine 4 MG/ML VIAL SLOW IVP PRN ×2 (00:15→08:43)
[2021-10-09] MEDS: Budesonide 0.5 MG/2 ML NEB NEB SCH (06:34)
[2021-10-09] MEDS: Flecainide 50 MG TAB PO SCH (08:20)
[2021-10-09] MEDS: Topiramate 100 MG TAB PO SCH (08:20)
[2021-10-09] MEDS: K PO SCH (08:20)
[2021-10-09] MEDS: Nicotine 7 MG PATCH TD SCH (08:21)
[2021-10-09 09:17] VITALS: BP 109/68; TEMP 98.3
== END 2021-10-09 12:36 | disposition home or self-care (01) | DRG 309 ==
LOC: ERS 04:32 → SUATTDRO 04:32 → ERHOLD 04:54 → 2SW 14:42
PROVIDERS: ADMIT Family Medicine; ATTEND Internal Medicine
DX: I48.0 Paroxysmal atrial fibrillation (principal); E44.0 Moderate protein-calorie malnutrition; Z68.1 Body mass index [BMI] 19.9 or less, adult; R64 Cachexia; Z20.822 Contact with and (suspected) exposure to COVID-19; J44.9 Chronic obstructive pulmonary disease, unspecified; G40.909 Epilepsy, unspecified, not intractable, without status epilepticus; I10 Essential (primary) hypertension; I48.92 Unspecified atrial flutter; M32.9 Systemic lupus erythematosus, unspecified; I49.5 Sick sinus syndrome; E78.5 Hyperlipidemia, unspecified; F17.210 Nicotine dependence, cigarettes, uncomplicated; I47.1 Supraventricular tachycardia; I67.1 Cerebral aneurysm, nonruptured; F43.10 Post-traumatic stress disorder, unspecified; F12.10 Cannabis abuse, uncomplicated; M45.9 Ankylosing spondylitis of unspecified sites in spine; E87.6 Hypokalemia; D72.819 Decreased white blood cell count, unspecified; G89.29 Other chronic pain; F41.9 Anxiety disorder, unspecified; M81.0 Age-related osteoporosis without current pathological fracture; E78.00 Pure hypercholesterolemia, unspecified; Z79.82 Long term (current) use of aspirin; Z85.118 Personal history of other malignant neoplasm of bronchus and lung; Z92.21 Personal history of antineoplastic chemotherapy; Z95.0 Presence of cardiac pacemaker; Z86.73 Personal history of transient ischemic attack (TIA), and cerebral infarction without residual deficits; Z79.899 Other long term (current) drug therapy; Z88.8 Allergy status to other drugs, medicaments and biological substances; Z79.52 Long term (current) use of systemic steroids; Z90.49 Acquired absence of other specified parts of digestive tract; Z90.710 Acquired absence of both cervix and uterus
CPT/HCPCS: 0240U; 36415; 71045; 71275; 80048; 80053; 80306; 80307; 83735; 84443; 84484; 85025; 85379; 93005; 93010; 93306; 94640; J0153; J2060; J2270; J2405; J2765; J3475; J3490; J7620; J7626

== ENCOUNTER 2021-12-07 21:56 | Inpatient (IN) | payer OTHER ==
[2021-12-07 22:34] LABS: #Lymphocytes 1.2 thou/uL (1.20-3.40); #Monocytes 0.5 thou/uL (0.11-0.59); #Neutrophils 4.1 thou/uL (1.40-6.50); %Basophils 0.3 % (0.0-1.0); %Eosinophils 0.1 % (0.0-10.0); %Lymphocytes 20.9 % (21.0-51.0); %Monocytes 8.7 % (0.0-10.0); Mean Corpuscular Volume 94.2 fL (78.0-98.0); Mean Platelet Volume 7.8 fL (7.4-10.4); Platelet Count 289 thou/uL (130-400); RBC Distribution Width 10.9 % (11.5-14.5); Red Blood Cell (RBC) Count 4.67 mill/uL (4.20-5.40); White Blood Cell (WBC) Count 5.9 thou/uL (4.8-10.8)
[2021-12-07 22:55] LABS: Prothrombin Time 13.3 sec (12.0-14.7)
[2021-12-07 22:58] LABS: ALT (SGPT) 7 U/L (8-55); AST (SGOT) 14 U/L (5-34); Albumin 4.8 g/dL (3.5-5.0); Alkaline Phosphatase 102 U/L (40-110); Anion Gap 16 mmol/L (10-20); BUN (Urea Nitrogen) 4 mg/dL (7.0-18.7); Bilirubin, Total 0.4 mg/dL (0.2-1.2); Calc. Creatinine Clearance 0 mL/min (70-130); Calcium 9.4 mg/dL (7.8-10.44); Carbon Dioxide 19 mmol/L (22-29); Chloride 107 mmol/L (98-107); Globulin 3.3 g/dL (2.4-3.5); Glucose 124 mg/dL (70-105); Lipase 27 U/L (8-78); Protein, Total 8.1 g/dL (6.0-8.3); Sodium 139 mmol/L (136-145)
[2021-12-07 23:02] LABS: Phosphorus 2.8 mg/dL (2.3-4.7)
[2021-12-07 23:19] LABS: Potassium 2.7 mmol/L (3.5-5.1)
[2021-12-07] MEDS ORDERED: Potassium Chloride 40 MEQ in Sodium Chloride 0.9% 250 ML 250 ML IVPB SCH (23:45)
[2021-12-08 00:17] LABS: Amphetamine Not Detected (NotDetected); Barbiturates Screen Not Detected (NotDetected); Benzodiazepine Screen Not Detected (NotDetected); Cocaine Metabolite Screen Not Detected (NotDetected); Methadone Not Detected (NotDetected); Methamphetamine Not Detected (NotDetected); Opiate Screen Not Detected (NotDetected); Oxycodone Screen Not Detected (NotDetected); Phencyclidine (PCP) Not Detected (NotDetected); THC/Cannabinoid Screen Detected (NotDetected); Tricyclic Screen Not Detected (NotDetected)
[2021-12-08 00:40] LABS: Bilirubin Negative (Negative); Blood, Urine Trace (Negative); Clarity Clear (Clear); Glucose, Urine (Dipstick) Normal (Negative); Ketone, Urine Negative (Negative); Leukocyte Negative Leu/uL (Negative); Nitrite Negative (Negative); Protein, Urine (Dipstick) Negative (Neg-Trace); RBC/HPF 0-3 HPF (0-3); Specific Gravity, Urine 1.004 (1.002-1.036); Squamous Epithelial 0-3 HPF (0-3); Urobilinogen Normal mg/dL (Less than 2); WBC/HPF 0-3 HPF (0-3); pH, Urine 6.5 (5.0-9.0)
[2021-12-08 00:41] LABS: Bacteria/HPF 1+ HPF (None Seen)
[2021-12-08 02:02] LABS: Troponin I Less than 0.010 ng/mL (< 0.028)
[2021-12-08] MEDS ORDERED: Ondansetron ODT 4 MG TAB SL PRN (03:45)
[2021-12-08] MEDS ORDERED: Ondansetron PF 4 MG/2 ML Vial IVP PRN (03:45)
[2021-12-08] MEDS ORDERED: Acetaminophen 325 MG TAB PO PRN (03:45)
[2021-12-08 05:14] LABS: Troponin I Less than 0.010 ng/mL (< 0.028)
[2021-12-08] MEDS ORDERED: Electrolyte Replacement Protocol 1 EACH FS PRN (05:45)
[2021-12-08] MEDS ORDERED: Potassium Chloride 40 MEQ in Sodium Chloride 0.9% 250 ML 250 ML IVPB SCH (05:45)
[2021-12-08 06:21] LABS: Anion Gap 10 mmol/L (10-20); BUN (Urea Nitrogen) Less than 4 mg/dL (7.0-18.7); Calc. Creatinine Clearance 57 mL/min (70-130); Calcium 8.1 mg/dL (7.8-10.44); Carbon Dioxide 19 mmol/L (22-29); Chloride 116 mmol/L (98-107); Glucose 94 mg/dL (70-105); Potassium 3.7 mmol/L (3.5-5.1); Sodium 141 mmol/L (136-145)
[2021-12-08 06:35] LABS: SARS-CoV-2 NAA Rapid Test Not Detected (NotDetected)
[2021-12-08 06:37] LABS: #Lymphocytes 1.1 thou/uL (1.20-3.40); #Monocytes 0.4 thou/uL (0.11-0.59); #Neutrophils 3.6 thou/uL (1.40-6.50); %Basophils 0.8 % (0.0-1.0); %Eosinophils 0.8 % (0.0-10.0); %Lymphocytes 20.9 % (21.0-51.0); %Neutrophils 69.5 % (42.0-75.0); Hemoglobin 11.2 g/dL (12.0-16.0); Mean Corpuscular HGB CONC 33.1 g/dL (32.0-36.0); Mean Corpuscular Hemoglobin 31.2 pg (27.0-31.0); Mean Corpuscular Volume 94.3 fL (78.0-98.0); Mean Platelet Volume 7.4 fL (7.4-10.4); Platelet Count 216 thou/uL (130-400); RBC Distribution Width 10.9 % (11.5-14.5); White Blood Cell (WBC) Count 5.1 thou/uL (4.8-10.8)
[2021-12-08] MEDS: Potassium Chloride 20 MEQ TAB PO SCH ×2 (06:39→08:51)
[2021-12-08] MEDS ORDERED: Magnesium 2 GM/50 ML 2 GM in Premix Bag 1 BAG IVPB SCH (07:00)
[2021-12-08] MEDS: Atorvastatin Calcium 40 MG TAB PO SCH (07:58)
[2021-12-08] MEDS: Topiramate 100 MG TAB PO SCH ×2 (07:58→20:03)
[2021-12-08] MEDS: Apixaban 2.5 MG TAB PO SCH ×2 (07:58→20:03)
[2021-12-08] MEDS: levETIRAcetam 500 mg/5 ml Oral Solution PO SCH ×2 (07:58→20:03)
[2021-12-08] MEDS ORDERED: Prevnar 13-Val Conj/PF 0.5 ML SYRINGE IM ONE (09:00)
[2021-12-08] MEDS ORDERED: Enoxaparin Sodium 40 MG/0.4 ML SYRINGE SC SCH (09:00)
[2021-12-08 11:29] VITALS: BMI 13.9
[2021-12-09 05:00] LABS: #Eosinphils 0.1 thou/uL (0.0-0.7); #Monocytes 0.3 thou/uL (0.11-0.59); #Neutrophils 3.6 thou/uL (1.40-6.50); %Basophils 0.5 % (0.0-1.0); %Eosinophils 1.7 % (0.0-10.0); %Lymphocytes 19.9 % (21.0-51.0); %Monocytes 6.3 % (0.0-10.0); %Neutrophils 71.6 % (42.0-75.0); Hemoglobin 12.4 g/dL (12.0-16.0); Mean Corpuscular HGB CONC 33.1 g/dL (32.0-36.0); Mean Corpuscular Hemoglobin 31.3 pg (27.0-31.0); Mean Corpuscular Volume 94.7 fL (78.0-98.0); Mean Platelet Volume 7.9 fL (7.4-10.4); Platelet Count 231 thou/uL (130-400); Red Blood Cell (RBC) Count 3.95 mill/uL (4.20-5.40); White Blood Cell (WBC) Count 5.1 thou/uL (4.8-10.8)
[2021-12-09 05:21] LABS: Anion Gap 8 mmol/L (10-20); BUN (Urea Nitrogen) 8 mg/dL (7.0-18.7); Calc. Creatinine Clearance 51 mL/min (70-130); Calcium 8.6 mg/dL (7.8-10.44); Carbon Dioxide 21 mmol/L (22-29); Chloride 113 mmol/L (98-107); Glucose 78 mg/dL (70-105); Potassium 3.9 mmol/L (3.5-5.1); Sodium 138 mmol/L (136-145)
[2021-12-09] MEDS: Atorvastatin Calcium 40 MG TAB PO SCH (08:42)
[2021-12-09] MEDS: Apixaban 2.5 MG TAB PO SCH ×2 (08:42→20:56)
[2021-12-09] MEDS: levETIRAcetam 500 mg/5 ml Oral Solution PO SCH ×2 (08:43→20:56)
[2021-12-09] MEDS: Topiramate 100 MG TAB PO SCH ×2 (08:44→20:56)
[2021-12-09] MEDS: Potassium Bicarbonate/Cit Ac 20 MEQ TAB PO SCH ×2 (09:53→11:54)
[2021-12-09] MEDS ORDERED: Magnesium 2 GM/50 ML 2 GM in Premix Bag 1 BAG IVPB SCH (10:00)
[2021-12-10 04:16] LABS: #Eosinphils 0.1 thou/uL (0.0-0.7); #Lymphocytes 0.8 thou/uL (1.20-3.40); #Monocytes 0.3 thou/uL (0.11-0.59); #Neutrophils 4.3 thou/uL (1.40-6.50); %Basophils 0.7 % (0.0-1.0); %Eosinophils 1.1 % (0.0-10.0); %Lymphocytes 14.8 % (21.0-51.0); %Monocytes 5.5 % (0.0-10.0); %Neutrophils 77.9 % (42.0-75.0); Hemoglobin 13.1 g/dL (12.0-16.0); Mean Corpuscular HGB CONC 33.8 g/dL (32.0-36.0); Mean Corpuscular Hemoglobin 31.6 pg (27.0-31.0); Mean Corpuscular Volume 93.5 fL (78.0-98.0); Mean Platelet Volume 7.8 fL (7.4-10.4); Platelet Count 253 thou/uL (130-400); RBC Distribution Width 10.8 % (11.5-14.5); Red Blood Cell (RBC) Count 4.13 mill/uL (4.20-5.40); White Blood Cell (WBC) Count 5.5 thou/uL (4.8-10.8)
[2021-12-10 04:46] LABS: Anion Gap 12 mmol/L (10-20); BUN (Urea Nitrogen) 14 mg/dL (7.0-18.7); Calc. Creatinine Clearance 52 mL/min (70-130); Calcium 8.7 mg/dL (7.8-10.44); Carbon Dioxide 20 mmol/L (22-29); Chloride 108 mmol/L (98-107); Glucose 95 mg/dL (70-105); Magnesium 2.3 mg/dL (1.6-2.6); Potassium 3.5 mmol/L (3.5-5.1); Sodium 136 mmol/L (136-145)
[2021-12-10] MEDS ORDERED: Potassium Bicarbonate/Cit Ac 20 MEQ TAB PER TUBE SCH (06:15)
[2021-12-10] MEDS ORDERED: Potassium Bicarbonate/Cit Ac 20 MEQ TAB PO SCH (08:00)
[2021-12-10] MEDS: Midodrine HCl 5 MG TAB PO SCH ×3 (08:54→20:05)
[2021-12-10] MEDS ORDERED: PROPOFOL 20 ML ONE (14:14)
[2021-12-10] MEDS ORDERED: Midazolam HCl 2 mg/2 ml Vial ONE (14:39)
[2021-12-10] MEDS ORDERED: Albuterol Sulfate HFA (OR ONLY) ONE (14:41)
[2021-12-10] MEDS: Topiramate 100 MG TAB PO SCH ×2 (16:13→20:05)
[2021-12-10] MEDS: Atorvastatin Calcium 40 MG TAB PO SCH (16:13)
[2021-12-10] MEDS: levETIRAcetam 500 mg/5 ml Oral Solution PO SCH ×2 (16:14→20:04)
[2021-12-10] MEDS: Apixaban 2.5 MG TAB PO SCH (18:40)
[2021-12-11 05:11] LABS: #Lymphocytes 0.6 thou/uL (1.20-3.40); #Monocytes 0.4 thou/uL (0.11-0.59); #Neutrophils 8.3 thou/uL (1.40-6.50); %Basophils 0.3 % (0.0-1.0); %Eosinophils 0.4 % (0.0-10.0); %Lymphocytes 6.2 % (21.0-51.0); %Monocytes 4.2 % (0.0-10.0); %Neutrophils 88.9 % (42.0-75.0); Hemoglobin 12.4 g/dL (12.0-16.0); Mean Corpuscular HGB CONC 32.2 g/dL (32.0-36.0); Mean Corpuscular Hemoglobin 30.2 pg (27.0-31.0); Mean Corpuscular Volume 93.9 fL (78.0-98.0); Mean Platelet Volume 8.1 fL (7.4-10.4); Platelet Count 248 thou/uL (130-400); RBC Distribution Width 10.9 % (11.5-14.5); Red Blood Cell (RBC) Count 4.11 mill/uL (4.20-5.40); White Blood Cell (WBC) Count 9.4 thou/uL (4.8-10.8)
[2021-12-11 05:34] LABS: Anion Gap 13 mmol/L (10-20); BUN (Urea Nitrogen) 18 mg/dL (7.0-18.7); Calc. Creatinine Clearance 50 mL/min (70-130); Calcium 8.8 mg/dL (7.8-10.44); Carbon Dioxide 20 mmol/L (22-29); Chloride 106 mmol/L (98-107); Glucose 107 mg/dL (70-105); Magnesium 1.9 mg/dL (1.6-2.6); Potassium 3.5 mmol/L (3.5-5.1); Sodium 135 mmol/L (136-145)
[2021-12-11] MEDS ORDERED: Potassium Bicarbonate/Cit Ac 20 MEQ TAB PO SCH (06:45)
[2021-12-11] MEDS ORDERED: Magnesium 2 GM/50 ML 2 GM in Premix Bag 1 BAG IVPB SCH (06:45)
[2021-12-11] MEDS: Atorvastatin Calcium 40 MG TAB PO SCH (07:42)
[2021-12-11] MEDS: levETIRAcetam 500 mg/5 ml Oral Solution PO SCH (07:42)
[2021-12-11] MEDS: Midodrine HCl 5 MG TAB PO SCH (07:42)
[2021-12-11] MEDS: Topiramate 100 MG TAB PO SCH (07:43)
[2021-12-11] MEDS ORDERED: Clopidogrel Bisulfate 75 MG TAB PO SCH (09:00)
[2021-12-11] MEDS ORDERED: Aspirin 81 mg Enteric Coated Tablet PO SCH (09:00)
[2021-12-11 12:02] VITALS: BP 103/58; TEMP 98.3
== END 2021-12-11 13:20 | disposition home or self-care (01) | DRG 312 ==
LOC: ERS 21:56 → 2SW 12-08 01:13 → OBSVTOIN 12-09 08:49
PROVIDERS: ADMIT Student in an Organized Health Care Education/Training Program; ATTEND Hospitalist
PROC: B246ZZ4 Ultrasonography of Right and Left Heart, Transesophageal (ICD-10-PCS; principal; 2021-12-10)
DX: R55 Syncope and collapse (principal); Q28.2 Arteriovenous malformation of cerebral vessels; R64 Cachexia; Z68.1 Body mass index [BMI] 19.9 or less, adult; M32.9 Systemic lupus erythematosus, unspecified; M81.0 Age-related osteoporosis without current pathological fracture; I48.91 Unspecified atrial fibrillation; E78.5 Hyperlipidemia, unspecified; J44.9 Chronic obstructive pulmonary disease, unspecified; I49.5 Sick sinus syndrome; F12.929 Cannabis use, unspecified with intoxication, unspecified; E87.6 Hypokalemia; G40.909 Epilepsy, unspecified, not intractable, without status epilepticus; E78.00 Pure hypercholesterolemia, unspecified; F43.10 Post-traumatic stress disorder, unspecified; F41.9 Anxiety disorder, unspecified; Z20.822 Contact with and (suspected) exposure to COVID-19; Z79.899 Other long term (current) drug therapy; Z88.8 Allergy status to other drugs, medicaments and biological substances; Z79.01 Long term (current) use of anticoagulants; Z86.73 Personal history of transient ischemic attack (TIA), and cerebral infarction without residual deficits; Z95.0 Presence of cardiac pacemaker; Z90.49 Acquired absence of other specified parts of digestive tract; Z90.710 Acquired absence of both cervix and uterus; Z85.118 Personal history of other malignant neoplasm of bronchus and lung
CPT/HCPCS: 36415; 71045; 71275; 80048; 80053; 80306; 81003; 81015; 83605; 83690; 83735; 84100; 84443; 84484; 85025; 85610; 87040; 87086; 93005; 93306; 93312; 96365; 96366; 96375; G0378; J2250; J2704; J3475; J3480; J7050; J7620; Q9967; U0002